=== PATIENT | male | born 1965 | race Caucasian/White ===

== ENCOUNTER 2023-12-25 07:31 | Outpatient (OUT) | payer BC, SELFPAY ==
--- NOTE | 2023-12-25 07:49 | XR_ITS ---
The [address] [address] Patient Name: YENNI HERNANDEZ MRN: [id number] date: 1965 Sex: M Assigned Patient Location: LAB Current Patient Location: LAB Accession/Order Number: [id number] Exam Date: 12/25/2023 07:52 Report Date: 12/25/2023 10:14 At the request of: JAYE LINDO Procedure: XR hip LT 2V w/ pelvis PROCEDURE: XR hip LT 2V w/ pelvis HISTORY: Low Back Pain Radiating To Lower Extremity COMPARISON: None. FINDINGS: BONES:No fracture, acute abnormality, or significant arthropathy. SOFT TISSUES:No visible soft tissue swelling. EFFUSION:None visible. OTHER: Negative. XR/XR hip LT 2V w/ pelvis IMPRESSION: 1. Normal examination. Electronically authenticated by: WILD MILLAN Date: 12/25/2023 10:14
--- NOTE | 2023-12-25 07:52 | XR_ITS ---
The [address] [address] Patient Name: YENNI HERNANDEZ MRN: [id number] date: 1965 Sex: M Assigned Patient Location: LAB Current Patient Location: LAB Accession/Order Number: [id number] Exam Date: 12/25/2023 07:52 Report Date: 12/25/2023 11:04 At the request of: JAYE LINDO Procedure: XR lumbar spine 2-3V EXAMINATION: XR lumbar spine 2-3V HISTORY: Low Back Pain Radiating To Lower Extremity COMPARISON: XR L-spine 05/24/2021 FINDINGS: BONES: Minimal left convex curvature of lumbar spine. Normal height and alignment of the vertebral bodies; no fracture or spondylolisthesis. Minimal degenerative facet arthropathy L4-5, L5-S1. DISC SPACES: No significant disc height narrowing, subluxation, or endplate abnormality. PARASPINOUS: Negative. No paraspinous abnormality is seen. OTHER: Old, incompletely healed posterior left 11th rib fracture. XR/XR lumbar spine 2-3V IMPRESSION: 1. No appreciable acute abnormality or significant degenerative changes of the lumbar spine. Stable. Electronically authenticated by: WILD MILLAN Date: 12/25/2023 11:04
[2023-12-25 07:54] LABS: Basophils Percent Auto 0.4 % (0.2-2.0); Eosinophils Absolute Auto 0.3 10^3/uL (0.0-0.7); Hematocrit 48.6 % (42.0-54.0); Hemoglobin 17.1 g/dL (14.0-18.0); Immature Granulocytes Abs Auto 0.02 10^3/uL (0.00-0.03); Immature Granulocytes Pct Auto 0.2 % (0.0-0.5); Lymphocytes Absolute Auto 2.7 10^3/uL (1.2-3.8); Lymphocytes Percent Auto 31.6 % (20.5-60.0); Mean Corpuscular HGB Conc 35.2 g/dL (29.9-35.2); Mean Corpuscular Hemoglobin 32.8 pg (25.9-34.0); Mean Corpuscular Volume 93.3 fL (80.0-94.0); Mean Platelet Volume 9.2 fL (9.5-13.5); Monocytes Absolute Auto 0.7 10^3/uL (0.3-0.8); Monocytes Percent Auto 7.7 % (1.7-12.0); Neutrophils Absolute Auto 4.9 10^3/uL (1.4-6.5); Neutrophils Percent Auto 57.1 % (43.0-75.0); Platelet Count 254 10^3/uL (150-450); Red Blood Count 5.21 10^6/uL (4.70-6.10); Red Cell Distribution Width 13.1 % (11.0-15.0); White Blood Count 8.5 10^3/uL (4.0-11.0)
[2023-12-25 09:00] LABS: Alanine Aminotransferase 28 U/L (16-63); Albumin Globulin Ratio 0.9; Albumin Level 3.5 g/dL (3.4-5.0); Alkaline Phosphatase 73 U/L (46-116); Anion Gap 14.3; Aspartate Amino Transferase 17 U/L (15-37); BUN Creatinine Ratio 8.4; Calcium 8.9 mg/dL (8.5-10.1); Carbon Dioxide 24.4 mmol/L (21.0-32.0); Chloride 103 mmol/L (98-107); Chol HDL Ratio 4.9; Cholesterol 217 mg/dL (<=200); Estimated GFR (African America >60 (>=60 mL/min/1.73m^2); Estimated GFR (Non-African Ame >60 (>=60 mL/min/1.73m^2); Globulin 3.9 g/dL; Glucose 118 mg/dL (74-106); HDL Cholesterol 44 mg/dL (40-60); Potassium 3.7 mmol/L (3.5-5.1); Sodium 138 mmol/L (136-145); Total Protein 7.4 g/dL (6.4-8.2); Triglycerides 220 mg/dL (<=150)
[2023-12-25 09:17] LABS: Prostate Specific Antigen Scrn 0.73 ng/mL (<=4.00)
== END 2023-12-25 07:32 | disposition home or self-care (01) ==
LOC: LAB 07:36
PROVIDERS: PCP Family Medicine; Visit Provider Family Medicine
DX: I10 Essential (primary) hypertension (principal); Z12.5 Encounter for screening for malignant neoplasm of prostate; M25.552 Pain in left hip; M54.50 Low back pain, unspecified; M79.605 Pain in left leg
CPT/HCPCS: 36415; 72100; 73502; 80053; 80061; 85025; G0103

== ENCOUNTER 2024-01-13 08:19 | Outpatient (OUT) | payer BC, SELFPAY ==
--- NOTE | 2024-01-13 08:23 | MR_ITS ---
The [address] [address] Patient Name: YENNI HERNANDEZ MRN: [id number] date: 1965 Sex: M Assigned Patient Location: MRI Current Patient Location: Accession/Order Number: [id number] Exam Date: 01/13/2024 08:45 Report Date: 01/15/2024 06:51 At the request of: WILD ACE Procedure: MR lumbar spine wo con EXAMINATION: MR lumbar spine wo con HISTORY: Lumbar Pain COMPARISON: No relevant comparison available. TECHNIQUE: A variety of imaging planes and parameters were utilized for visualization of suspected pathology. FINDINGS: For the purposes of numbering, sagittal T2 image # 8 extends from the T11 vertebral body superiorly to the S3 level inferiorly. PARASPINAL AREA: Normal with no visible mass. BONES: No fracture, pars defect, or osseous lesion. CORD/CAUDA EQUINA: Normal caliber, contour, and signal intensity. 1.3 cm nerve root sleeve cyst on the left posterior to S1 slightly displacing adjacent nerve roots. DISC LEVELS: 12-L1: No significant disc/facet abnormality, spinal stenosis, or foraminal stenosis. L1-L2: No significant disc/facet abnormality, spinal stenosis, or foraminal stenosis. L2-L3: Early degenerative disc disease is present without focal protrusion or neural impingement. L3-L4: Moderate-marked right foramen narrowing. Mild diffuse disc bulging slightly eccentric into the right foramen. Mild degenerative facet arthropathy, right greater than left. No significant central canal or left foramen narrowing. L4-L5: Moderate foramen narrowing bilaterally without significant central canal narrowing. Mild diffuse disc bulging and mild degenerative facet arthropathy bilaterally. L5-S1: Moderate right, moderate to marked left foramen narrowing. No significant central canal narrowing. Mild diffuse disc bulging. Mild right, moderate left degenerative facet arthropathy. MR/MR lumbar spine wo con IMPRESSION: 1. Mild degenerative disc disease and mild-moderate facet arthropathy of lower lumbar spine resulting in foramen narrowing. This is greatest at L3-L4 on the right and L5-S1 on the left. Electronically authenticated by: WILD MILLAN Date: 01/15/2024 06:51
--- OUTSIDE RECORDS SUMMARY | 2024-01-13 08:23 | XMS_ITS | CCD ---
Author Organization [facility] Care Team Providers Care Data Management Associate Name Role Phone DR HUI LINDO Admitting Unavailable GUICHO, DR HUI Potts Attending Unavailable DR HUI LINDO Primary Care Unavailable DR WILD MILLAN Consulting Unavailable GUICHO, DR HUI Potts Consulting Unavailable Hui Lindo Unavailable Allergies Allergy Classification Reported Allergen(s) Allergy Type Date of Onset Reaction(s) Facility (8 sources) Esomeprazole Drug Allergy 12-23-19 24 Unknown, Diarrhea [facility] (8 sources) gabapentin Drug Allergy 12-23-19 24 Unknown, Unknown Reaction [facility] (7 sources) Ibuprofen Drug Allergy Unknown [facility] Other (3 sources) Ibuprofen Drug Allergy 02-18-20 14 Unknown [facility] Other (3 sources) NexIUM *ULCER DRUGS/ANTISPASMO DICS/ANTICHOLINE RGIC Propensity to adverse reactions 02-18-20 14 Unknown [facility] Other Medications Current Medications Medication Drug Class(es) Dates Sig (Normalized) Sig (Original) amoxicillin 875 mg / clavulanate 125 mg oral tablet (8 sources) Penicillin-class Antibacterial Start: 06-07-2022 take 1 tablet by mouth every twelve hours Amoxicillin-Pot Clavulanate 875-125 MG 1 tablet Orally every 12 hrs for 10 day(s) May, Active cefdinir 300 mg oral capsule (3 sources) Cephalosporin Antibacterial Start: 11-12-2022 Cefdinir 300 MG as directed Orally bid for 7 days Oct, Active cloNIDine hydrochloride 0.1 mg oral tablet (4 sources) Central alpha-2 Adrenergic Agonist take 1 tablet by mouth every twenty-four hours cloNIDine HCl 0.1 MG 1 tablet Orally Once a day Active escitalopram 10 mg oral tablet (4 sources) Serotonin Reuptake Inhibitor take 1 tablet by mouth every twenty-four hours Lexapro 10 MG 1 tablet Orally Once a day Active losartan potassium 50 mg oral tablet (8 sources) Angiotensin 2 Receptor Maranda Start: 12-23-2023 take 1 tablet by mouth once daily Losartan Active 1 TAB PO Daily December 23, 2023 12:00am [employer] tablet Orally Once a day; Note: Source Status: Refill; Refills: 3; Qty: 90 Tablet; Provider: Guicho Potts take 1 tablet by parish th every twenty-four hours Losartan Potassium 50 MG 1 tablet Orally Once a day for 90 days Active Completed/Discontinued Medications Medication Drug Class(es) Dates Sig (Normalized) Sig (Original) [id number] 200 actuat albuterol 0.09 mg/actuat metered dose inhaler (20 sources) beta2-Adrenergic Agonist Start: 08-14-2023 End: 12-23-2023 Albuterol Sulfate Discontinued 0 .ROUTE .COMPLEX 51 August 14, 2023 8:38am December 23, 2023 1:39pm INHALE 2 INHALATIONS BY MOUTH INTO THE LUNGS EVERY 4 HOURS NEEDED Start: 08-13-2023 End: 08-14-2023 take 1 puff(s) by inhalation every four hours Albuterol Sulfate Discontinued 2 PUFF INHALATION Every 4 hours August 13, 2023 12:00am August 14, 2023 8:38am Start: 05-21-2023 End: 12-23-2023 Albuterol Sulfate Discontinu ed 0 .ROUTE .COMPLEX 1050 June 02, 2023 10:04am December 23, 2023 1:39pm USE 1 VIAL VIA NEBULIZER EVERY 6 HOURS NEEDED Start: 05-21-2023 End: 05-21-2023 take 2.5 mg by inhalation every six hours Albuterol Sulfate Discontinued 2.5 MG INHALATION Every 6 hours May 21, 2023 1:00am May 21, 2023 3:27pm Start: 09-24-2022 take 2 puff(s) by in halation every four hours as needed Albuterol Sulfate HFA 108 (90 Base) MCG/ACT 2 puff Inhalation every 4 hrs prn for 90 days Sep, Active Albuterol Sulfat e (2.5 MG/3ML) 0.083% 3 mL as needed Inhalation every 6 hrs for 90 days Active take 2 puff(s) by in halation every four hours as needed Albuterol Sulfate HFA 108 (90 Base) MCG/ACT INHALE TWO puffs into THE lungs EVERY 4 HOURS NEEDED for 90 Active Albuterol Sulfat e (2.5 MG/3ML) 0.083% 3 mL as needed Inhalation every 6 hrs for 90 days Active ProAir HFA Activ e cyclobenzaprine hydrochloride 10 mg oral tablet (10 sources) Muscle Relaxant Start: 06-26-2023 End: 12-23-2023 take 1 tablet by mouth once daily at bedtime as needed Cyclobenzaprine Discontinued 0 .ROUTE .COMPLEX 90 November 10, 2023 3:36pm December 23, 2023 1:51pm TAKE 1 TABLET BY MOUTH EVERY DAY AT BEDTIME NEEDED FOR 90 DAYS Start: 06-26-2023 End: 06-26-2023 take 10 mg by mouth once daily at bedtime Cyclobenzaprine Discontinued 10 MG PO Daily at bedtime June 26, 2023 12:00am June 26, 2023 1:03pm take 1 tablet by parish th every twenty-four hours Cyclobenzaprine HCl 10 MG 1 tablet at bedtime as needed Orally Once a day for 90 days Active Problems Problem Classification Problem Date Documented Date Episodic/Chronic Anxiety disorders (7 sources) Mixed anxiety and depressive disorder; Translations: [Anxiety disorder, unspecified] Chronic Chronic obstructive pulmonary disease and bronchiectasis (7 sources) Bronchitis; Translations: [Bronchitis, not specified as acute or chronic] Episodic Essential hypertension (9 sources) Essential hypertension; Translations: [Essential (primary) hypertension] 12-23-2023 Chronic Other non-traumatic joint disorders (1 source) Hip pain; Translations: [Pain in left hip] 12-23-2023 Episodic Other non-traumatic joint disorders (1 source) Pain in left hip; Translations: [Pain in joint, pelvic region and thigh] 12-23-2023 Episodic Other screening for suspected conditions (not mental disorders or infectious disease) (4 sources) Encounter for screening for malignant neoplasm of prostate; Translations: [Patient encounter status] Onset: 05-25-2021 Episodic Other upper respiratory infections (2 sources) Acute maxillary sinusitis, unspecified; Translations: [Acute recurrent maxillary sinusitis] Episodic Otitis media and related conditions (1 source) Unspecified nonsuppurative otitis media, right ear Episodic Spondylosis; intervertebral disc disorders; other back problems (9 sources) Pain in thoracic spine; Translations: [Pain in thoracic spine] 12-23-2023 Episodic Unclassified (1 source) LOW BACK PAIN, UNSPECIFIED; Translations: [LOW BACK PAIN, UNSPECIFIED] Onset: 05-25-2021 Results Test Name Value Interpretation Reference Range Facility CBC AUTO DIFFon 05-24-2021 BASO # 0.0 103/ul Normal 0.0-0.1 [facility] Comment on above: Performed By: #### C BC #### [facility] [address] [address] [address] Ciro Mesa Basophils/100 WBC (Bld) 0.5 % Normal 0.2-2.0 [facility] Comment on above: Performed By: #### C BC #### [facility] [address] [address] [address] Ciro Mesa EO # 0.2 103/ul Normal 0.0-0.7 [facility] Comment on above: Performed By: #### C BC #### [facility] [address] [address] [address] Ciro Mesa Eosinophils/100 WBC (Bld) 2.4 % Normal 0.9-7.0 [facility] Comment on above: Performed By: #### C BC #### [facility] [address] [address] [address] Ciro Mesa Erythrocyte distribution width (RBC) [Ratio] 13.1 % Normal 11.0-15.0 [facility] Comment on above: Performed By: #### C BC #### [facility] [address] [place] [address] Dr. Ciro Mesa Hematocrit (Bld) [Volume fraction] 48.6 % Normal 42.0-54.0 [facility] Comment on above: Performed By: #### C BC #### [facility] [address] [address] [address] Ciro Mesa Hemoglobin (Bld) [Mass/Vol] 16.5 g/dL Normal 14.0-18.0 [facility] Comment on above: Performed By: #### C BC #### [facility] [address] [place] [address] Dr. Ciro Mesa IG # 0.03 10e3/ul Normal 0.00-0.03 [facility] Comment on above: Performed By: #### C BC #### [facility] [address] [place] [address] Dr. Ciro Mesa IG % 0.4 % Normal 0.0-0.5 [facility] Comment on above: Performed By: #### C BC #### [facility] [address] [place] [address] Dr. Ciro Mesa LYMPH # 2.7 103/ul Normal 1.2-3.8 [facility] Comment on above: Performed By: #### C BC #### [facility] [address] [place] [address] Dr. Ciro Mesa Lymphocytes/100 WBC (Bld) 32.2 % Normal 20.5-60.0 [facility] Comment on above: Performed By: #### C BC #### [facility] [address] [place] [address] Dr. Ciro Mesa MANUAL DIFF REQ NO Normal [facility] Comment on above: Performed By: #### C BC #### [facility] [address] [place] [address] Dr. Ciro Mesa MCH (RBC) [Entitic mass] 32.1 pg Normal 25.9-34.0 [facility] Comment on above: Performed By: #### C BC #### [facility] [address] [place] [address] Dr. Ciro Mesa MCHC (RBC) [Mass/Vol] 34.0 g/dL Normal 29.9-35.2 [facility] Comment on above: Performed By: #### C BC #### [facility] [address] [place] [address] Dr. Ciro Mesa MCV (RBC) [Entitic vol] 94.6 fL Critically high 80.0-94.0 [facility] Comment on above: Performed By: #### C BC #### [facility] [address] [place] [address] Dr. Ciro Mesa MONO # 0.7 103/ul Normal 0.3-0.8 [facility] Comment on above: Performed By: #### C BC #### [facility] [address] [place] [address] Dr. Ciro Mesa Monocytes/100 WBC (Bld) 8.2 % Normal 1.7-12.0 [facility] Comment on above: Performed By: #### C BC #### [facility] [address] [place] [address] Dr. Ciro Mesa NEUT # 4.7 103/ul Normal 1.4-6.5 [facility] Comment on above: Performed By: #### C BC #### [facility] [address] [place] [address] Dr. Ciro Mesa Neutrophils/100 WBC (Bld) 56.3 % Normal 43.0-75.0 [facility] Comment on above: Performed By: #### C BC #### [facility] [address] [place] [address] Dr. Ciro Mesa Platelet mean volume (Bld) [Entitic vol] 9.1 fL Critically low 9.5-13.5 [facility] Comment on above: Performed By: #### C BC #### [facility] [address] [place] [address] Dr. Ciro Mesa PLT 257 103/ul Normal 150-450 [facility] Comment on above: Performed By: #### C BC #### [facility] [address] [place] [address] Dr. Ciro Mesa RBC 5.14 106/ul Normal 4.70-6.10 [facility] Comment on above: Performed By: #### C BC #### [facility] [address] [place] [address] Dr. Ciro Mesa WBC 8.3 103/ul Normal 4.0-11.0 [facility] Comment on above: Performed By: #### C BC #### [facility] [address] [place] [address] Dr. Ciro Mesa GLYCOHEMOGLOBIN A1Con 2021 ADA RECOMMENDATION ADA THERAPEUTIC TARG ET 6.0 - 7.0 ACTION SUGGESTED > 7.0 Normal [facility] Comment on above: Performed By: #### A 1C #### [facility] [address] [address] [address] Ciro Mesa Glucose [Mass/Vol] 120 mg/dL Normal [facility] Comment on above: Performed By: #### A 1C #### [facility] [address] [address] [address] Ciro Mesa HbA1c (Bld) [Mass fraction] 5.8 % Normal <=6.0 [facility] Comment on above: Performed By: #### A 1C #### [facility] [address] [place] [address] Dr. Ciro Mesa LIPID PROFILEon 05-24-2021 CHOL-HDL RATIO NORM SEE BELOW Normal [facility] Comment on above: Result Comment: 3.3 - 4.4 LOW RISK 4.4 - 7.1 AVERAGE RISK 7.1 - 11.0 MODERATE RISK >11.0 HIGH RISK Performed By: #### C MP, TSH, LIPID #### [facility] [address] [place] [address] Dr. Ciro Mesa Cholesterol [Mass/Vol] 218 mg/dL Critically high <=200 [facility] Comment on above: Performed By: #### C MP, TSH, LIPID #### [facility] [address] [address] [address] Ciro Mesa Cholesterol in HDL [Mass/Vol] 40 mg/dL Normal [facility] Comment on above: Performed By: #### C MP, TSH, LIPID #### [facility] [address] [address] [address] Ciro Mesa Cholesterol in LDL [Mass/Vol] 148.2 mg/dL Normal [facility] Comment on above: Performed By: #### C MP, TSH, LIPID #### [facility] [address] [address] [address] Ciro Mesa Cholesterol.total/Ch olesterol in HDL [Mass ratio] 5.5 {ratio} Normal [facility] Comment on above: Performed By: #### C MP, TSH, LIPID #### [facility] [address] [address] [address] Ciro Mesa HDL NORMAL > or = 60 mg/dl - LO W CARDIOVASCULAR RISK <40 mg/dl - HIGH CARDIOVASCULAR RISK Normal [facility] Comment on above: Performed By: #### C MP, TSH, LIPID #### [facility] [address] [address] [address] Ciro Mesa LDL CALC NORMAL SEE BELOW Normal [facility] Comment on above: Result Comment: <100 mg/dl OPTIMAL 100 - 129 mg/dl NEAR OR ABOVE OPTIMAL 130 - 159 mg/dl BORDERLINE HIGH 160 - 189 mg/dl HIGH >190 mg/dl VERY HIGH Performed By: #### C MP, TSH, LIPID #### [facility] [address] [place] [address] Dr. Ciro Mesa Triglyceride [Mass/Vol] 149 mg/dL Normal <=150 [facility] Comment on above: Performed By: #### C MP, TSH, LIPID #### [facility] [address] [place] [address] Dr. Ciro Mesa VLDL CALC 29.8 mg/dL Normal [facility] Comment on above: Performed By: #### C MP, TSH, LIPID #### [facility] [address] [place] [address] Dr. Ciro Mesa PROF 14(COMP METB)on 022 Albumin [Mass/Vol] 3.9 g/dL Normal 3.5-5.0 [facility] Comment on above: Performed By: #### C MP, TSH, LIPID #### [facility] [address] [address] [address] Ciro Mesa Albumin/Globulin [Mass ratio] 0.9 {ratio} Normal [facility] Comment on above: Performed By: #### C MP, TSH, LIPID #### [facility] [address] [address] [address] Ciro Mesa ALP [Catalytic activity/Vol] 79 U/L Normal 38-126 [facility] Comment on above: Performed By: #### C MP, TSH, LIPID #### [facility] [address] [address] [address] Ciro Mesa ALT [Catalytic activity/Vol] 35 U/L Normal 21-72 [facility] Comment on above: Performed By: #### C MP, TSH, LIPID #### [facility] [address] [address] [address] Ciro Mesa Anion gap [Moles/Vol] 10.3 mmol/L Normal [facility] Comment on above: Performed By: #### C MP, TSH, LIPID #### [facility] [address] [address] [address] Ciro Mesa AST [Catalytic activity/Vol] 21 U/L Normal 17-59 [facility] Comment on above: Performed By: #### C MP, TSH, LIPID #### [facility] [address] [address] [address] Ciro eMsa Bilirubin [Mass/Vol] 0.6 mg/dL Normal 0.2-1.3 [facility] Comment on above: Performed By: #### C MP, TSH, LIPID #### [facility] [address] [address] [address] Ciro Mesa Calcium [Mass/Vol] 8.5 mg/dL Normal 8.4-10.2 [facility] Comment on above: Performed By: #### C MP, TSH, LIPID #### [facility] [address] [address] [address] Ciro Mesa Chloride [Moles/Vol] 105 mmol/L Normal 98-107 [facility] Comment on above: Performed By: #### C MP, TSH, LIPID #### [facility] [address] [address] [address] Ciro Mesa CO2 [Moles/Vol] 30.5 mmol/L Critically high 22.0-30.0 [facility] Comment on above: Performed By: #### C MP, TSH, LIPID #### [facility] [address] [address] [address] Ciro Mesa Creatinine [Mass/Vol] 0.96 mg/dL Normal 0.66-1.25 [facility] Comment on above: Performed By: #### C MP, TSH, LIPID #### [facility] [address] [place] [address] Dr. Ciro Mesa EGFR-AF SAMMARINESE >60 Normal >=60 [facility] Comment on above: Performed By: #### C MP, TSH, LIPID #### [facility] [address] [place] [address] Dr. Ciro Mesa EGFR-NON AF SAMMARINESE >60 Normal >=60 [facility] Comment on above: Performed By: #### C MP, TSH, LIPID #### [facility] [address] [place] [address] Dr. Ciro Mesa Globulin (S) [Mass/Vol] 4.3 g/dL Normal [facility] Comment on above: Performed By: #### C MP, TSH, LIPID #### [facility] [address] [place] [address] Dr. Ciro Mesa Glucose [Mass/Vol] 131 mg/dL Critically high 74-106 [facility] Comment on above: Performed By: #### C MP, TSH, LIPID #### [facility] [address] [place] [address] Dr. Ciro Mesa Potassium [Moles/Vol] 3.8 mmol/L Normal 3.4-5.0 [facility] Comment on above: Performed By: #### C MP, TSH, LIPID #### [facility] [address] [place] [address] Dr. Ciro Mesa Protein [Mass/Vol] 8.2 g/dL Normal 6.1-8.2 [facility] Comment on above: Performed By: #### C MP, TSH, LIPID #### [facility] [address] [place] [address] Dr. Ciro Mesa Sodium [Moles/Vol] 142 mmol/L Normal 137-145 [facility] Comment on above: Performed By: #### C MP, TSH, LIPID #### [facility] [address] [place] [address] Dr. Ciro Mesa Urea nitrogen [Mass/Vol] 10.0 mg/dL Normal 9.0-20.0 [facility] Comment on above: Performed By: #### C MP, TSH, LIPID #### [facility] [address] [address] [address] Ciro Mesa Urea nitrogen/Creatinine [Mass ratio] 10.4 mg/mg Normal [facility] Comment on above: Performed By: #### C MP, TSH, LIPID #### [facility] [address] [address] [address] Ciro Mesa TSHon 05-24-2021 TSH 1.701 uIU/mL Normal 0.470-4.680 [facility] Comment on above: Performed By: #### C MP, TSH, LIPID #### [facility] [address] [address] [address] Ciro Mesa TSH RANGE SEE BELOW Normal [facility] Comment on above: Result Comment: <0.3 4 UIU/ml HYPERTHYROID 0.34-5.60 UIU/ml EUTHYROID >5.60 UIU/ml HYPOTHYROID Performed By: #### C MP, TSH, LIPID #### [facility] [address] [address] [address] Ciro Mesa XR LSPINE MIN 4 VIEWSon 05-15 XR LSPINE MIN 4 VIEWS EXAMINATION: XR LSPINE MIN 4 VIEWS HISTORY: Low back pain ; acute left lumbar pain for 3 months radiating to left leg, no known injury COMPARISON: No relevant comparison available. FINDINGS: BONES: Mild degenerative facet arthropathy L4-L5, L5-S1. No fracture, spondylolisthesis, bone lesion. DISC SPACES: No significant disc height narrowing, subluxation, or endplate abnormality. PARASPINOUS: Negative. No paraspinous abnormality is seen. OTHER: Negative. IMPRESSION: 1. No acute bone abnormality. 2. Minimal degenerative changes. Consider MRI for further evaluation if symptoms persist. Electronically authenticated by: WILD MILLAN Date: 2021-05-24 16:25 Normal [facility] Consent Formson 03-23-2020 Consent Forms [id number]#[id number] [facility] Coding Summaryon 03-21-2020 Coding Summary CODING DATE: 03/21/2020 [facility] STATUS: Home PAYOR: [employer] APC DESCRIPTION 5114 Level 4 Musculoskeletal Procedures ADMIT DX: REASON FOR VISIT DX: M75.101 Unspecified rotator cuff tear or rupture of right shoulder, not specified as traumatic FINAL DX: PRINCIPAL: M75.121 Complete rotator cuff tear or rupture of right shoulder, not specified as traumatic SECONDARY: S46.111A Strain of muscle, fascia and tendon of long head of biceps, right arm, initial encounter PYMT PROC APC STAT DESCRIPTION DOCTOR NAME DATE 78712 5114 J1 Arthroscopy, shoulder, Robert Phelan And 03/13/2020 surgical; with rotator cuff repair RT Right side (used to identify procedures performed on the right side of the body) NOTE: The code number assigned matches the documented diagnosis and / or procedure in the patient's chart. However, the narrative phrase printed from the coding software may appear abbreviated, or result in slightly different terminology. Revised Coded By: Iris Shaikh Revised Date Saved: 03/21/2020 09:34 am [facility] MAGR Intraoperative Recordon 03-15-2020 MAGR Intraoperative Record MAGR Intra-Op Record Summary Primary Physician: Robert Phelan DO Finalized Date/Time: 03/15/20 13:30:29 Pt. Name: JEREMI HERNANDEZ Sr/Sex: 1965 MALE Med Rec #: [id number] Physician: Robert Phelan DO Financial #: [id number] Pt. Type: D Room/Bed: / Admit/Disch: 03/13/20 07:12:00 - 03/13/20 14:05:00 Institution: Case Times MAGR Entry 1 Patient In Room Time 03/13/20 10:36:00 Out Room Time 03/13/20 12:38:00 Anesthesia Start Time 03/13/20 10:36:00 Stop Time 03/13/20 12:38:00 Surgery Start Time 03/13/20 11:04:00 Stop Time 03/13/20 12:30:00 Last Modified By: Laura Thornton RN 03/13/20 13:40:40 Case Attendance MAGR Entry 1 Entry 2 Entry 3 Case Attendee Robert Phelan Satya S MD Sauer, Stephanie RN Andrew DO Role Performed Surgeon - Primary Anesthesiologist of Facility Practice Specialist Record Time In 03/13/20 10:36:00 03/13/20 10:36:00 03/13/20 10:36:00 Time Out 03/13/20 12:38:00 03/13/20 12:38:00 03/13/20 12:38:00 Procedure Arthroscopy Arthroscopy Arthroscopy Shoulder(Right) Shoulder(Right) Shoulder(Right) Last Modified By: Laura Thornton RN, Stephanie RN Sauer, Stephanie RN 03/13/20 14:08:44 03/13/20 14:08:44 03/13/20 14:08:44 Entry 4 Entry 5 Case Attendee Shelbi Mcleod CST, Brittany E CSFA Role Performed Cig[employer] Machine Feeder Scrub Personnel Time In 03/13/20 10:36:00 03/13/20 10:36:00 Time Out 03/13/20 12:38:00 03/13/20 12:38:00 Procedure Arthroscopy Arthroscopy Shoulder(Right) Shoulder(Right) Last Modified By: Laura Thornton RN, Stephanie RN 03/13/20 14:08:44 03/13/20 14:08:44 General Comments: NEEL CRANDALL RAPP & NEPHEW REP Surgical Procedures MAGR Pre-Care Text: A.20 Verifies operative procedure, surgical site, and laterality Im.150 Develops individualized plan of care Entry 1 Procedure Arthroscopy Shoulder Primary Procedure Yes Primary Surgeon Robert Phelan Modifiers Right Foreign ZAMORA Surgeon Comment RIGHT SHOULDER SCOPE Start 03/13/20 11:04:00 WITH ROTATOR CUFF REPAIR - RAPP AND NEPHEW IMPLANT Stop 03/13/20 12:30:00 Anesthesia Type General Surgical Service Orthopedics Wound Class Clean Technique Details Closure Technique Primary Entire procedure No was performed via laparoscope or robotic assistance Last Modified By: Laura Thornton RN 03/13/20 13:41:59 Post-Care Text: O.730 The patient's care is consistent with the individualized perioperative plan of care General Case Data MAGR Pre-Care Text: A.350.1 Classifies surgical wound Entry 1 Case Information OR MAGR OR 05 Case Level Level 4 Wound Class Clean Specialty Orthopedics ASA Class 3 Diagnosis Preop Diagnosis ROTATOR CUFF TEAR RIGHT Postop Same As Preop Yes Postop Diagnosis ROTATOR CUFF TEAR RIGHT Blunt or No Is the procedure No penetrating injury considered occured prior to Emergent/Urgent? the start of the procedure: Last Modified By: Laura Thornton RN 03/13/20 13:42:10 Post-Care Text: O.760 Patient receives consistent and comparable care regardless of the setting Time Out MAGR Entry 1 Time out date/time 03/13/20 11:04:00 All team members Yes have introduced themselves by name and role Surgeon, Yes Surgeon reviews Yes anesthesia, nurse critical or confirm patient, unexpected steps, site, procedure operative duration, anticipated blood loss Anesthesia team Yes Nursing team Yes reviews any reviews sterility patient-specific (including concerns indicator results) and equipment issues/concerns Antibiotic Antibiotic Yes Administration Time 10:40 prophylaxis given within the last 60 minutes Is essential Yes imaging displayed? Last Modified By: Laura Thornton RN 03/13/20 13:42:36 Patient Positioning MAGR Pre-Care Text: A.280 Identifies baseline musculoskeletal status Im.40 Positions the patient Im.80 Applies safety devices Entry 1 Procedure Arthroscopy Body Position Lateral Shoulder(Right) Left Arm Position Extended on padded arm Right Arm Position Extended board Left Leg Position Extended Right Leg Position Extended Feet Uncrossed? Yes Press Points Checked Yes Positioning Device Arm Boards, Arm Strap, Outcome Met (O.80) Yes Pillow, Safety Strap Last Modified By: Laura Thornton RN 03/13/20 13:42:45 Post-Care Text: E.290 Evaluates musculoskeletal status O.80 Patient is free from signs and symptoms of injury related to positioning Skin Prep MAGR Pre-Care Text: A.30 Verifies allergies Im.270 Performs skin preparation Im.270.1 Implements protective measures to prevent skin and tissue injury due to chemical sources Entry 1 Skin Prep Syntegrity Prep Agents (Im.270) Chlorhexidine Gluconate Prep By Laura Thornton RN and Alcohol Prep Area (Im.270) Shoulder, Arm, Hand Prep Area Details Right Skin Prep Agent Dry Yes Without Pooling Hair Removal Syntegrity Hair Removal Methods No hair removal performed Outcome Met (O.100) Yes Last Modified By: Laura Thornton RN 03/13/20 13:43:13 Post-Care Text: E.10 Evaluates for signs and symptoms of physical injury to skin and tissue O.100 Patient is free from signs and symptoms of chemical injury Counts Verification MAGR Pre-Care Text: A.20 Verifies operative procedure, surgical site, and laterality A.20.2 Assesses the risk for unintended retained foreign body Im.20 Performs required counts Entry 1 Procedure Arthroscopy Shoulder(Right) Counts Verification Initial Counts Items included in Sponges, Sharps Initial Counts Laura Thornton RN, the Initial Count Performed By Anna Hood Initial Count Time 03/13/20 11:00:00 Counts Verification Final Counts Items Included in Sponges, Sharps Final Count Status Correct Final Count Final Counts Laura Thornton RN, Final Count Time 03/13/20 12:10:00 Performed By Anna Hood Surgeon notified of Yes final counts status Outcome Met (O.20) Yes Last Modified By: Laura Thornton RN 03/13/20 13:43:43 Post-Care Text: E.50 Evaluates results of the surgical count O.20 Patient is free from unintended retained foreign objects Patient Care Devices MAGR Pre-Care Text: A.200 Assesses risk for normothermia regulation A.40 Verifies presence of prosthetics or corrective devices Im.280 Implements thermoregulation measures Im.60 Uses supplies and equipment within safe parameters Entry 1 Entry 2 Equipment Type BILLATERAL INTERMITTENT FORCED WARM AIR COMPRESSION DEVICE Serial ?# [id number] Equipment Setting DEFAULT 43 DEGREES Last Modified By: Laura Thornton RN, Stephanie RN 03/13/20 13:44:50 03/13/20 13:44:50 Post-Care Text: E.10 Evaluates signs and symptoms of physical injury to skin and tissue O.700 Patient is free from signs and symptoms of injury caused by extraneous objects Implant Log MAGR Pre-Care Text: A.20 Verifies operative procedure, surgical site, and laterality Im.350 Records implants inserted during the operative or invasive procedure Entry 1 Entry 2 Entry 3 Procedure Arthroscopy Arthroscopy Arthroscopy Shoulder(Right) Shoulder(Right) Shoulder(Right) Implant Action Not Implanted Implant Implant Description RAPP & NEPHEW FIRST RAPP & NEPHEW RAPP & NEPHEW PASS SUTURE PASSER HEALICOIL SUTURE ANCHOR HEALICOIL SUTURE ANCHOR [id number] 5.5MM [id number] 4.75MM [id number] Implant Information Implant/Explant 03/13/20 12:00:00 03/13/20 12:00:00 03/13/20 12:00:00 Date/Time Implanted/Explanted Robert Phelan James Huddleston, James By: Foreign ZAMORA Foreign Hudsonw DO Size 5.5MM 4.75MM Double Backer RAPP & NEPHEW RAPP & NEPHEW RAPP & NEPHEW Catalog # [id number] Lot Number [id number] Expiration Date 10/26/22 08/10/22 12/07/22 Serial Number Device Identifier Human Readable KB Machine Readable KB MR Class Implant Usage Data Site Shoulder R Shoulder R Shoulder R Quantity 1 1 1 Reason for Explant Reason Not Retained Explant Disposition Youth Leader Sterility External Indicator Result Internal Indicator Results Outcome Met (O.30) Yes Yes Yes Last Modified By: Laura Thornton RN, Stephanie RN Sauer, Stephanie RN 03/13/20 14:08:30 03/13/20 14:08:30 03/13/20 14:08:31 Entry 4 Entry 5 Entry 6 Procedure Arthroscopy Arthroscopy Arthroscopy Shoulder(Right) Shoulder(Right) Shoulder(Right) Implant Action Implant Not Implanted Not Implanted Description RAPP & NEPHEW RAPP & NEPHEW 4.75 RAPP & NEPHEW HEALICOIL SUTURE ANCHOR DILATOR (AWL) [id number] ULTRATAPE 38 [id number] 4.75MM [id number] Implant Information Implant/Explant 03/13/20 12:00:00 03/13/20 12:00:00 03/13/20 12:00:00 Date/Time Implanted/Explanted Robert Phelan James Huddleston, James By: Foreign Hudsonw Foreign DO Size 4.75MM 38 Double Backer RAPP & NEPHEW RAPP & NEPHEW RAPP & NEPHEW Catalog # [id number] Lot Number [id number] Expiration Date 11/04/22 02/10/24 04/21/23 Serial Number Device Identifier Human Readable KB Machine Readable KB MR Class Implant Usage Data Site Shoulder R Shoulder R Shoulder R Quantity 1 1 1 Reason for Explant Reason Not Retained Explant Disposition Youth Leader Sterility External Indicator Result Internal Indicator Results Outcome Met (O.30) Yes Yes Yes Last Modified By: Laura Thornton RN, Stephanie RN Sauer, Stephanie RN 03/13/20 14:08:31 03/13/20 14:08:31 03/13/20 14:08:31 Entry 7 Procedure Arthroscopy Shoulder(Right) Implant Action Not Implanted Description [id number] 8.5MM CANNULA [id number] Implant Information Implant/Explant 03/13/20 12:00:00 Date/Time Implanted/Explanted Robert Phelan By: Foreign DO Size 8.5MM Double Backer [id number] Catalog # [id number] Lot Number [id number] Expiration Date 05/07/21 Serial Number Device Identifier Human Readable KB Machine Readable KB MR Class Implant Usage Data Site Shoulder R Quantity 1 Reason for Explant Reason Not Retained Explant Disposition Youth Leader Sterility External Indicator Result Internal Indicator Results Outcome Met (O.30) Yes Last Modified By: Laura Thornton RN 03/13/20 14:08:31 Post-Care Text: E.30 Evaluates verification process for correct patient, site, side and level surgery O.30 Patient's procedure is performed on the correct site, side, and level Dressing/Packing MAGR Pre-Care Text: A.350 Assesses susceptibility for infection Im.290 Administer care to wound sites Entry 1 Skin Prep Agent Yes Site Shoulder Removed Prior to Dressing? Site Details Right Dressing Item Details Dressing Item 4x4's, ABD, Petroleum Tape (Im.290) Foam (Im.290) gauze Outcome Met Yes Last Modified By: Laura Thornton RN 03/13/20 13:45:23 Post-Care Text: E.200 Evaluates progress of wound healing O.200 Patient's wound perfusion is consistent with or improved from baseline levels Departure from OR MAGR Entry 1 Present on Depart Oxygen Via Stretcher Post-op Destination PACU Skin DFO Condition Dry Description Condition Intact Description Report Given To Jelena Diehl RN Airway Maintenance Patient Status Stable Oxygen in Use? Yes Airway Device Simple mask Flow Rate 10 Last Modified By: Laura Thornton RN 03/13/20 13:45:55 Case Comments Finalized By: Angelique Josue RN Document Signatures Signed By: Laura Thornton RN 03/13/20 14:09 Angelique Josue RN 03/15/20 13:30 Unfinalized History Date/Time Username Reason for Unfinalizing Freetext Reason for Unfinalizing 03/15/20 13:26 DOUGIE Modify Pick List [facility] Consent Formson 03-14-2020 Consent Forms [id number]#1.[address] [place] [address] Discharge Instructionson Discharge Instructions [id number]#1.[address] [place] [address] History and Physicalon 03-14 History and Physical [id number] 120 [id number]#1.[address] [place] [address] Medication Managementon 02-15 Medication Management [id number]#1.[address] [place] [address] Outside Recordson 03-14-2020 Outside Records [id number]#1.[address] [place] [address] Telemetry Stripson 0 Telemetry Strips [id number] 20 [id number]#1.[address] [place] [address] Anesthesia Noteon 03-13-2020 Anesthesia Note Patient: JEREMI HERNANDEZ Sr Age: 54 years Sex: MALE : 1965 Associated Diagnoses: None Author: Nato Goddard MD Preoperative Information Anesthesia history: Patient history: No difficult intubation, No malignant hyperthermia. Family history: No malignant hyperthermia. Review of Systems Respiratory: No shortness of breath, No apnea. Cardiovascular: No known [place], No chest pain. Gastrointestinal Health Status Allergies: Allergic Reactions (All) No known allergies Current medications: Home Medications (3) Active Albuterol (Eqv-ProAir HFA) 90 mcg/inh inhalation aerosol 2 puff(s), PRN, INH, BID albuterol 0.083% inh solution 6 mL, PRN, INH, q6hr cloNIDine 0.1 mg oral tablet 0.1 mg = 1 tab(s), PO, BID Problem list (past medical history): All Problems Smoker / SNOMED CT [id number] / Confirmed Histories Family History: No family history items have been selected or recorded. Procedure history: Finger ([id number]). Comments: 02/25/2020 10:12 Jake Maurice RN right ring finger Bilateral eyes ([id number]). Comments: 02/25/2020 10:13 Jake Maurice RN at age 6 surgery for being cross eyed Social History Electronic Cigarette/Vaping Assessment Electronic Cigarette Use: Former use, quit more than 90 days ago. Alcohol Assessment Use: Current. Comment: ocacational beer Tobacco Assessment 10 or more cigarettes (1/2 pack or more)/day in last 30 days Tobacco Use:. Substance Abuse Assessment Substance use: Never. . Physical Examination VS/Measurements Vital Signs (last 24 hrs) Last Charted Heart Rate Peripheral 73 bpm (MAR 13 07:40) Resp Rate 20 br/min (MAR 13:40) SBP H 141mmHg (MAR 13 07:45) DBP H 93mmHg (MAR 13 07:45) SpO2 100 % (MAR 13:40) General: Alert and oriented, No acute distress. Airway: Mouth: Within normal limits. Respiratory: Respirations are non-labored. Cardiovascular: Normal rate. Review / Management Laboratory Results ECG interpretation: Within normal limits, PVCs. Plan [place] [employer]esthesiologists#(ASA ) physical status classification: Class III. Anesthetic Preoperative Plan Anesthesia: General. , Regional Interscalene Block. Anesthetic plan, risks, benefits, and alternatives discussed with the patient and/or family. Patient verbalized understanding. Informed consent was given. Consent was signed by the patient. [Electronically Signed on: 03/13/2020 08:52 EST] Nato Goddard MD [Verified on: 03/13/2020 08:52 EST] Nato Goddard MD [facility] Coding Summaryon 03-13-2020 Coding Summary CODING DATE: 03/13/2020 [facility] STATUS: Home PAYOR: Commercial Insurance ADMIT DX: REASON FOR VISIT DX: Z20.828 Contact with and (suspected) exposure to other viral communicable diseases FINAL DX: PRINCIPAL: Z20.828 Contact with and (suspected) exposure to other viral communicable diseases SECONDARY: PYMT PROC APC STAT DESCRIPTION DOCTOR NAME DATE NOTE: The code number assigned matches the documented diagnosis and / or procedure in the patient's chart. However, the narrative phrase printed from the coding software may appear abbreviated, or result in slightly different terminology. Coded By: Varsha Nassar Date Saved: 03/13/2020 07:36 am [facility] Inpatient Patient Summaryon 03-13-2020 [place]patient [place] [address] Patient Discharge Instructions Name: JEREMI HERNANDEZ Sr : 1965 Patient [address]: [address] [place] [address] Primary Care Provider: Name: Hui Lindo MD After you are discharged if you find you have any questions, please, call [phone] ext [phone] to speak to a nurse. Discharge Diagnosis: Unspecified rotator cuff tear or rupture of right shoulder, not specified as traumatic Prescription Information: If you have been given a prescription for narcotics, seek immediate medical attention if you have any difficulty breathing or any sudden status changes such as confusion and sleepiness. If you or anyone you know is experiencing suicidal thoughts, mental health, alcohol and/or drug addiction problems; contact the [facility] 07/10 Crisis Hotline -Text 4HSKS cj 295634. If you received any narcotics, sedation, or any other medication that causes drowsiness for the next 24 hours, unless otherwise directed: ? Do not drive a car. ? Do not operate machinery such as power tools, lawn mowers, drills, sewing machines, or stoves ? Avoid alcoholic beverages and drugs for allergies, nerves, or sleep ? Do not make important personal or business decisions or sign any legal documents [facility] would like to thank you for allowing us to assist you with your healthcare needs. The following includes patient education materials and information regarding your injury/illness. JEREMI HERNANDEZ Sr has been given the following list of follow-up instructions, prescriptions, and patient education materials: Follow-up Instructions With: Address: When: ADAM DE [place] [address] [facility], [facility] [address] [place] [address] Business (1) 03/22/2020 9:15 AM With: Address: When: Hui Guicho [address] [place] [address], [facility] [place] [address] Business (1) Medications During the course of your visit, your medication list was updated with the most current information. The details of those changes are reflected below: Medications to Continue That Have Not Changed Other Medications albuterol (Albuterol (Eqv-ProAir HFA) 90 mcg/inh inhalation aerosol) 2 puff(s) Inhalation 2 times a day as needed wheezing. albuterol (albuterol 0.083% inh solution) 6 Milliliter Inhalation Every 6 hours as needed for wheezing. cloNIDine (cloNIDine 0.1 mg oral tablet) 1 tab(s) Oral 2 times a day. It is important to always keep an active list of medications available so that you can share with other providers and manage your medications appropriately. As an additional courtesy, we are also providing you with your final active medications list that you can keep with you. albuterol (Albuterol (Eqv-ProAir HFA) 90 mcg/inh inhalation aerosol) 2 puff(s) Inhalation 2 times a day as needed wheezing. albuterol (albuterol 0.083% inh solution) 6 Milliliter Inhalation Every 6 hours as needed for wheezing. cloNIDine (cloNIDine 0.1 mg oral tablet) 1 tab(s) Oral 2 times a day. Take only the medications listed above. Contact your doctor prior to taking any medications not on this list. Diet & Activity Patient Activity Level: As Tolerated Patient Diet: Regular Patient Activity Restrictions: Comment: Patient education materials, if any, will display below DR. GONZALEZ POST OPERATIVE SHOULDER INSTRUCTIONS SURGEONS WRITTEN INSTRUTCTIONS: -If you have been given a cryo cuff after surgery you should use it as much as possible for the first 24-48 hours. After that it is optional. TIP: Many patients prefer to use it a little longer because it helps reduce pain -You should wiggle your fingers frequently -Change your dressings in 1 day. If steri-strips have been applied DO NOT remove them. When the wound is clean and dry you may leave it open to air but again DO NOT remove any steri-strips that have been applied -You may shower in 1 day but do not let the water stream directly strike the wound -Do pendulum exercises for at least 10 minutes twice a day -If you have any problems or concerns, please call the office at [phone] -Follow up as scheduled Viruses or Bacteria What?s got you sick? Antibiotics only treat bacterial infections. Viral illnesses cannot be treated with antibiotics. When an antibiotic is not prescribed, ask your healthcare professional for tips on how to relieve symptoms and feel better. Usual Cause Illness Viruses Bacteria Antibiotic Needed Cold/Runny Nose NO Bronchitis/Chest Cold (in otherwise healthy children and adults) NO Whooping Cough Yes Flu NO Strep Throat Yes Sore Throat (except strep) NO Fluid in the middle ear (otitis media with effusion) NO Urinary Tract Infection Yes Antibiotics Aren?t Always the Answer www.cdc.gov/getsmart GET SMART Know When Antibiotics Work U.[place]. Department of Health and Human Services Centers for Disease Control and Prevention November 2013 [facility] MAGR Intraoperative Recordon 03-13-2020 MAGR Intraoperative Record MAGR Intra-Op Record Summary Primary Physician: Finalized Date/Time: 03/13/20 10:36:09 Pt. Name: JEREMI HERNANDEZ Sr/Sex: 1965 MALE Med Rec #: [id number] Physician: Robert Phelan DO Financial #: [id number] Pt. Type: D Room/Bed: / Admit/Disch: 03/13/20 07:12:00 - Institution: Case Times MAGR Entry 1 Patient In Room Time 03/13/20 10:15:00 Out Room Time 03/13/20 10:35:00 Anesthesia Start Time 03/13/20 10:16:00 Stop Time 03/13/20 10:24:00 Surgery Start Time 03/13/20 10:20:00 Stop Time 03/13/20 10:24:00 Last Modified By: Maude Diallo RN 03/13/20 10:35:29 Case Attendance MAGR Entry 1 Entry 2 Entry 3 Case Attendee Nato Goddard MD, RN, Alana Neri RN Role Performed Anesthesiologist of Facility Practice Specialist Facility Practice Specialist Record Time In 03/13/20 10:15:00 03/13/20 10:15:00 03/13/20 10:15:00 Time Out 03/13/20 10:26:00 03/13/20 10:35:00 03/13/20 10:30:00 Procedure Interscalene Block Interscalene Block Interscalene Block Last Modified By: Yoel HAWKINS, Maude Diallo RN, Maude Ingram RN 03/13/20 10:35:39 03/13/20 10:35:39 03/13/20 10:35:39 Surgical Procedures MAGR Pre-Care Text: A.20 Verifies operative procedure, surgical site, and laterality Im.150 Develops individualized plan of care Entry 1 Procedure Interscalene Block Primary Procedure Yes Primary Surgeon Nato Goddard MD Surgeon Comment SCALENE BLOCK PRIOR TO RIGHT SHOULDER SCOPE WITH ROTATOR CUFF REPAIR - RAPP AND NEPHEW IMPLANT Start 03/13/20 10:20:00 Stop 03/13/20 10:24:00 Anesthesia Type Regional Block Surgical Service Anesthesia Wound Class Clean Technique Details Closure Technique N/A Entire procedure No was performed via laparoscope or robotic assistance Last Modified By: Maude Diallo RN 03/13/20 10:29:12 Post-Care Text: O.730 The patient's care is consistent with the individualized perioperative plan of care General Case Data MAGR Pre-Care Text: A.350.1 Classifies surgical wound Entry 1 Case Information OR MAGR Proc Room Case Level None Wound Class Clean Specialty Anesthesia ASA Class 3 Diagnosis Preop Diagnosis SCALENE BLOCK PRIOR TO Postop Same As Preop Yes RIGHT SHOULDER SCOPE WITH ROTATOR CUFF REPAIR - RAPP AND NEPHEW IMPLANT Postop Diagnosis SCALENE BLOCK PRIOR TO RIGHT SHOULDER SCOPE WITH ROTATOR CUFF REPAIR - RAPP AND NEPHEW IMPLANT Blunt or No Is the procedure No penetrating injury considered occured prior to Emergent/Urgent? the start of the procedure: Last Modified By: Maude Diallo RN 03/13/20 10:29:26 Post-Care Text: O.760 Patient receives consistent and comparable care regardless of the setting Time Out MAGR Entry 1 Time out date/time 03/13/20 10:16:00 All team members Yes have introduced themselves by name and role Surgeon, Yes Surgeon reviews Yes anesthesia, nurse critical or confirm patient, unexpected steps, site, procedure operative duration, anticipated blood loss Anesthesia team No Nursing team No reviews any reviews sterility patient-specific (including concerns indicator results) and equipment issues/concerns Antibiotic Antibiotic N/A prophylaxis given within the last 60 minutes Is essential Yes imaging displayed? Last Modified By: Maude Diallo RN 03/13/20 10:30:22 Patient Positioning MAGR Pre-Care Text: A.280 Identifies baseline musculoskeletal status Im.40 Positions the patient Im.80 Applies safety devices Entry 1 Procedure Interscalene Block Body Position Supine Left Arm Position Resting at Side Right Arm Position Resting at Side Left Leg Position Extended Right Leg Position Extended Feet Uncrossed? Yes Press Points Checked Yes Outcome Met (O.80) Yes Last Modified By: Maude Diallo RN 03/13/20 10:25:45 Post-Care Text: E.290 Evaluates musculoskeletal status O.80 Patient is free from signs and symptoms of injury related to positioning Skin Prep MAGR Pre-Care Text: A.30 Verifies allergies Im.270 Performs skin preparation Im.270.1 Implements protective measures to prevent skin and tissue injury due to chemical sources Entry 1 Skin Prep Syntegrity Prep Agents (Im.270) Chlorhexidine Gluconate Prep By Nato Goddard MD and Alcohol Prep Area (Im.270) Shoulder, Neck Prep Area Details Right Skin Prep Agent Dry Yes Without Pooling Hair Removal Syntegrity Hair Removal Methods No hair removal performed Outcome Met (O.100) Yes Last Modified By: Maude Diallo RN 03/13/20 10:28:10 Post-Care Text: E.10 Evaluates for signs and symptoms of physical injury to skin and tissue O.100 Patient is free from signs and symptoms of chemical injury Departure from OR MAGR Entry 1 Present on Depart Oxygen Via Stretcher Post-op Destination [place] Skin DFO Condition Dry Description Report Given To Angelique Josue RN Airway Maintenance Patient Status Stable Oxygen in Use? Yes Airway Device Nasal cannula Flow Rate 2 % L/min Last Modified By: Maude Diallo RN 03/13/20 10:36:02 Case Comments Finalized By: Maude Diallo RN Document Signatures Signed By: Maude Diallo RN 03/13/20 10:36 [facility] MAGR PACU Recordon 0 MAGR PACU Record MAGR PACU Record Summary Primary Physician: Robert Phelan DO Finalized Date/Time: 03/13/20 13:06:43 Pt. Name: JEREMI HERNANDEZ Sr/Sex: 1965 MALE Med Rec #: [id number] Physician: Robert Phelan DO Financial #: [id number] Pt. Type: D Room/Bed: / Admit/Disch: 03/13/20 07:12:00 - Institution: PACU Case Times MAGR Entry 1 In PACU I 03/13/20 12:35:00 Discharge from PACU 03/13/20 13:05:00 I Last Modified By: Kesha La RN 03/13/20 13:06:19 General Comments: arrives to PACU from OR 5, see IVevangelin[facility] for details pt dcd from PACU in stable condition using Dr Goddard's discharge criteria. pt transferred to room 208 and report given to [facility] Finalized By: Kesha La RN Document Signatures Signed By: Kesha La RN 03/13/20 13:06 [facility] MAGR Postoperative Recordon 03-13-2020 MAGR Postoperative Record MAGR Phase II Record Summary Primary Physician: Robert Phelan DO Finalized Date/Time: 03/13/20 14:14:57 Pt. Name: JEREMI HERNANDEZ Sr/Sex: 1965 MALE Med Rec #: [id number] Physician: Robert Phelan DO Financial #: [id number] Pt. Type: D Room/Bed: / Admit/Disch: 03/13/20 07:12:00 - Institution: Phase II Case Times MAGR Pre-Care Text: Patient is free from s/s of injury. Patient remains free from compromised physical state related to surgery or anesthesia. Patient comfort maintained. Patient/family verbalize understanding of discharge instructions. Entry 1 In PACU II 03/13/20 13:08:00 Discharge from PACU 03/13/20 14:05:00 II Last Modified By: Kesha La RN 03/13/20 14:14:49 Post-Care Text: The patient remains free from s/s of injury. Patient's vital signs stable, circulation maintained, return to preop mental and physical status, opsite/dressing intact, minimal or absent nausea and vomiting, tolerates po intake. Patient verbalizes adequate pain control. Patient/family express understanding of discharge instructions. Finalized By: Kesha La RN Document Signatures Signed By: Kesha La RN 03/13/20 14:14 [facility] Preoperative Recordon 1 05-14-2019 [facility] Preoperative Record [facility] Pre-Op Record Summary Primary Physician: Robert Phelan DO Finalized Date/Time: 03/13/20 13:03:07 Pt. Name: JEREMI HERNANDEZ Sr./Sex: 1965 MALE Med Rec #: [id number] Physician: Robert Phelan DO Financial #: [id number] Pt. Type: D Room/Bed: / Admit/Disch: 03/13/20 07:12:00 - Institution: Pre-Op Case Times [facility] Pre-Care Text: Patient will be optimally prepared for surgery. Patient is free from s/s of injury. Provide information to patient/family related to plan of care. Verify patient allergies. Confirm identity and verify consent before the operative or invasive procedure. Entry 1 Patient Arrival Time 03/13/20 07:40:00 Preop Departure 03/13/20 10:35:00 Last Modified By: Jelena Diehl RN 03/13/20 13:00:33 Post-Care Text: Patient is prepared mentally and physically and is ready for surgery. The patient remains free from s/s of injury. Patient/family express understanding of plan of care and participate in decisions affecting his or her perioperrative plan of care. Allergies documented appropriately. Patient identifiers and consent correct. General Comments: Patient deneis any recent cold/flu symptoms, SOB, sleep apnea, diabetes, CP, or pacemaker/defibrillato r. Finalized By: Jelena Diehl RN Document Signatures Signed By: Jelena Diehl RN 03/13/20 13:03 Normal [facility] Operative Report - Surgeon/P kelleelisbeth 03-13-2020 Operative Report - Surgeon/Physician Preoperative diagnosis: Tear rotator cuff right shoulder Postoperative diagnosis: Rotator cuff right shoulder Tear biceps tendon long head Procedure: Arthroscopic repair of rotator cuff right shoulder Surgeon: Karmen Phelan D.O. Anesthesia: General Indications for surgery: Patient had clinical and radiographic findings consistent with a full-thickness tear. We discussed options surgical nonsurgical he requested to proceed with surgery. Estimated blood loss: Scant Complications: No no complications Findings: There was a massive full-thickness retracted tear of the rotator cuff was also a tear of the biceps tendon with a residual stump in the joint Procedure summary: Patient was brought to the operative suite he was given general anesthetic and the shoulder was then examined. There is no instability there was good range of motion. He was placed in the lateral decubitus position the right upper extremities prepped and draped in usual fashion and a timeout was taken. A posterior portal was established. Upon entering the glenohumeral joint is immediately apparent there was a full-thickness tear of the rotator cuff. Also noted was a residual stump of the tendon of the long head of the biceps. The labrum had some mild fraying but was intact the articular surface was intact. I established a lateral portal and I inserted a resector through the defect in the rotator cuff I trimmed back the biceps stump to its base leaving the labrum intact. I then repositioned the scope into the subacromial space. I took down the bursa and I inspected the undersurface of the acromium as well as the undersurface of the acromioclavicular joint. I found no spurs or areas of impingement. I then established another port anterior laterally in place graspers and I mobilized the rotator cuff I was able to bring it out to the border of the footprint laterally. I then scuffed up the footprint with a resector. I inserted 3 anchors along the medial row the footprint. ( [employer]) helacoil suture anchors. These had been loaded with ultra tape. I shuttled the ultra tape through the medial portion of the rotator cuff I then crisscrossed the limbs and anchored laterally with 2 helacoil suture anchors and one 4.75 bio swivel lock ([employer]) Creating a double row suture bridge technique with 3 anchors medially and 3 anchors laterally. There was complete coverage of the footprint with a nice approximation of the rotator cuff tissue to the footprint. I took the shoulder through range of motion and found no residual abnormalities. The repair was stable. The subacromial space was irrigated and evacuated and the portals were closed with nylon suture. Sterile dressings were applied. [Electronically Signed on: 03/13/2020 13:53 EST] Robert Phelan DO [Verified on: 03/13/2020 13:53 EST] Robert Phelan DO [facility] Patient Handouton 03-13-[address] GONZALEZ POST OPERATIVE SHOULDER INSTRUCTIONS SURGEONS WRITTEN INSTRUTCTIONS: -If you have been given a cryo cuff after surgery you should use it as much as possible for the first 24-48 hours. After that it is optional. TIP: Many patients prefer to use it a little longer because it helps reduce pain -You should wiggle your fingers frequently -Change your dressings in 1 day. If steri-strips have been applied DO NOT remove them. When the wound is clean and dry you may leave it open to air but again DO NOT remove any steri-strips that have been applied -You may shower in 1 day but do not let the water stream directly strike the wound -Do pendulum exercises for at least 10 minutes twice a day -If you have any problems or concerns, please call the office at [phone] -Follow up as scheduled [facility] 2019 Novel Coronavirus (CoVI D-19), ISAAC LCon 03-10-2020 SARS-CoV-2, ISAAC (COVID-19) LC Not Detected Not Detected [facility] Comment on above: Order Comment: [phone] Result Comment: This nucleic acid amplification test was developed and its performance characteristics determined by [employer]. Nucleic acid amplification tests include PCR and TMA. This test has not been FDA cleared or approved. This test has been authorized by FDA under an Emergency Use Authorization (EUA). This test is only authorized for the duration of time the declaration that circumstances exist justifying the authorization of the emergency use of in vitro diagnostic tests for detection of SARS-CoV-2 virus and/or diagnosis of COVID-19 infection under section 564(b)(1) of the Act, 21 U.S.C. 360bbb-3(b) (1), unless the authorization is terminated or revoked sooner. When diagnostic testing is negative, the possibility of a false negative result should be considered in the context of a patient's recent exposures and the presence of clinical signs and symptoms consistent with COVID-19. An individual without symptoms of COVID-19 and who is not shedding SARS-CoV-2 virus would expect to have a negative (not detected) result in this assay. Performed At: [facility] [address] [facility] [place] [id number] Salina Lopez MD Ph:[phone] Performed By: #### 6 [id number] ####[place] [address] Progress Note - Nurseon 02-15 Progress Note - Nurse Pre-op call for 03/13/2020 surgery done- patient given arrival time of 0715 on 03/13 and reminded of NPO after midnight except for meds that he was instructed to take, hibiclens shower, and still family/visitor restriction in place. Patient with undersstanding. [Electronically Signed on: 03/08/2020 11:45 EST] Ashlee Suero RN [Verified on: 03/08/2020 11:45 EST] Ashlee Suero RN [facility] Progress Note - Nurseon 12-2 Progress Note - Nurse Dr. Jay reviewed information from patients family doctor visit. Patient was started on Clonidine. Call made to patient and questioned how is BP and pulse has been since he started on the Clonidine. 03/04/2020 127/85 P-73, 03/05/2020 120/81 P-65 and 03/06/2020 149/88 P-74. Will inform Dr. Jay of the readings. [Electronically Signed on: 03/06/2020 12:34 EST] Jelena Diehl RN [Verified on: 03/06/2020 12:34 EST] Jelena Diehl RN Informed Dr. Jay of the readings. No orders, continue with planned procedure. [Electronically Signed on: 03/06/2020 12:36 EST] Jelena Diehl RN [facility] Progress Note - Nurseon -1 Progress Note - Nurse Dr Jay reviews PAT information and testing results. Requested the PCP office note and questioned if any old EKG's from PCP. Will Call patient's PCP today. [Electronically Signed on: 02/29/2020 08:23 EST] Jelena Diehl RN [Verified on: 02/29/2020 08:23 EST] Jelena Diehl RN [facility] Coding Summaryon 02-28-2020 Coding Summary CODING DATE: 02/28/2020 [facility] STATUS: Home PAYOR: Commercial Insurance APC DESCRIPTION 5733 Level 3 Minor Procedures ADMIT DX: REASON FOR VISIT DX: I10 Essential (primary) hypertension Z01.818 Encounter for other preprocedural examination FINAL DX: PRINCIPAL: I10 Essential (primary) hypertension SECONDARY: Z01.818 Encounter for other preprocedural examination M25.511 Pain in right shoulder PYMT PROC APC STAT DESCRIPTION DOCTOR NAME DATE NOTE: The code number assigned matches the documented diagnosis and / or procedure in the patient's chart. However, the narrative phrase printed from the coding software may appear abbreviated, or result in slightly different terminology. Coded By: Jennifer Boewr Date Saved: 02/28/2020 09:15 am [facility] Vital Signs Date Time Vital Sign Value Performing Clinician Facility 12-23-2023 13:41-0400 Body mass index (BMI) [Ratio] 35.4 kg/m2 [facility] 12-23-2023 13:41-0400 Diastolic blood pressure 70 mm[Hg] [facility] 12-23-2023 13:41-0400 Heart rate 78 /min [facility] 12-23-2023 13:41-0400 Respiratory rate 18 /min [facility] 12-23-2023 13:41-0400 SaO2% (BldA) [Mass fraction] 97 % [facility] 12-23-2023 13:41-0400 Systolic blood pressure 158 mm[Hg] [facility] 12-23-2023 11:43-0400 Body height 175.26 cm [facility] 12-23-2023 11:43-0400 Body weight 109.03 kg [facility] 11-12-2022 09:45-0400 Body height 175.26 cm Hui Lindo Other [facility] Other 11-12-2022 09:45-0400 Body mass index (BMI) [Ratio] 35.29 kg/m2 Hui Lindo Other [facility] Other 11-12-2022 09:45-0400 Body temperature 97.9 [degF] Hui Lindo Other [facility] Other 11-12-2022 09:45-0400 Body weight 108.41 kg Hui Lindo Other [facility] Other 11-12-2022 09:45-0400 Diastolic blood pressure 100 mm[Hg] Hui Lindo Other [facility] Other 11-12-2022 09:45-0400 Systolic blood pressure 163 mm[Hg] Hui Lindo Other [facility] Other Encounters Encounter Date Encounter Type Care Provider Facility Start: 12-23-2023 End: 12-23-2023 ambulatory [facility] Work Phone: Start: 12-23-2023 End: 12-23-2023 Patient encounter procedure [facility] Work Phone: Start: 03-28-2023 End: 03-28-2023 ambulatory Hui Lindo Other [facility] Other Start: 03-28-2023 Telephone encounter Hui Lindo [facility] Start: 03-18-2023 End: 03-18-2023 ambulatory Hui Lindo Other [facility] Other Start: 03-18-2023 Telephone encounter Hui Lindo [facility] Start: 11-12-2022 End: 11-12-2022 ambulatory Hui Lindo Other [facility] Other Start: 11-12-2022 Office outpatient vi sit 15 minutes Hui Lindo [facility] Start: 10-01-2022 End: 10-01-2022 ambulatory Hui Lindo Other [facility] Other Start: 10-01-2022 Telephone encounter Hui Lindo [facility] Start: 09-23-2022 End: 09-23-2022 ambulatory Hui Lindo Other [facility] Other Start: 09-23-2022 Telephone encounter Hui Lindo [facility] Start: 09-04-2022 End: 09-04-2022 ambulatory Hui Lindo Other [facility] Other Start: 09-04-2022 Telephone encounter Hui Lindo [facility] Start: 06-07-2022 (Televisit) Televisit Hui Lindo [facility] Start: 06-07-2022 End: 06-07-2022 ambulatory Hui Lindo Other [facility] Other Start: 06-07-2022 Encounter for genera l adult medical examination without abnormal findings Hui Lindo [facility] Start: 05-25-2021 Encounter for genera l adult medical examination without abnormal findings DR HUI LINDO [facility] Start: 05-24-2021 End: 05-25-[address] HUI LINDO Facility:[facility] Start: 05-24-2021 End: 05-25-2021 Encounter for general adult medical examination without abnormal findings DR HUI LINDO Facility:[facility] Procedures Date Procedure Procedure Detail Performing Clinician Start: 05-24-[address] HUI LINDO Comment on above: Performed By: #### P [facility] #### [facility] [address] [place] [address] Dr. Ciro Mesa Plan of Treatment Date Care Activity Detail Author Start: 12-23-2023 Patient referral [facility] Work Phone: Comprehensive metabo lic 2000 panel - Serum or Plasma [facility] Patient referral [facility] Work Phone: XR Hip - left 2 Views [facility] XR Lumbar spine 2 or 3 Views [facility] Immunizations Immunization Date Immunization Notes Care Provider Fa cility 01-05-2019 influenza virus vaccine, split virus (incl. purified surface antigen) Hui Guicho Other [facility] Other 01-05-2019 influenza virus vaccine, unspecified formulation [facility] Payers Date Payer Category Payer Unknown [id number] 1965 Unknown [id number] [facility] [id number] Social History Date Type Detail Facility Sex Assigned At [facility] Other Start: 1965 Sex Assigned At Male [facility] Hospital Discharge instructions 12-23-2023 Note Date & Type Note Facility 12-23-2023 Hospital Discharg e instructions Ambulatory OrdersReferral to Orthopedics Time Frame: 12/23/23, Location: None Selected [facility] Work Phone: Evaluation note 11-12-2022 Note Date & Type Note Facility 11-12-2022 Evaluation note Encounter Date Diagnosis Assessment Notes Oct, Right otitis media with effusion (ICD-10 - H65.91) Ear infections are often a secondary infection caused from an URI or allergies. Take medication as directed, and complete all doses of medication even if symptoms are no longer present. Use OTC Tylenol or Motrin as directed for discomfort and fevers. Push fluids/rest. Follow up with PCP if symptoms do not improve after 2-3 days on antibiotic or if new symptoms develop. Follow up with PCP sooner if symptoms worsen. Patient encouraged to follow up with PCP after completion of abx to have ears checked. Patient verbalized understanding and agreement of treatment plan. Oct, Acute recurrent maxillary sinusitis (ICD-10 - J01.01) Finish antibiotic [facility] Other Evaluation note 06-07-2022 Note Date & Type Note Facility 06-07-2022 Evaluation note Encounter Date Diagnosis Assessment Notes May, Acute non-recurren t maxillary sinusitis (ICD-10 - J01.00) Sinus infections can be triggered by a secondary infection from a viral URI or even seasonal allergies. Take medications as directed. Use saline nasal spray prior to presciption nasal spray. Take medications as directed, and complete all doses of medication even if you start to feel better. Patient advised to follow up with PCP if symptoms persist or worsen. Patient verbalized understanding and agreement with treatment plan. May, Well adult exam (ICD-10 - Z00.00) Requests labs only - not a wellness exam today May, Screening PSA (prostate specific antigen) (ICD-10 - Z12.5) [facility] Other Evaluation note Note Date & Type Note Facility Evaluation note No Information [facility] Other Evaluation note Note Date & Type Note Facility Evaluation note Diagnosis Onset Date Essential hypertension acute Left hip pain acute Lumbar pain with radiation down left leg acute Screening PSA (prostate specific antigen) acute [facility] Work Phone: History general Narrative - Reported Note Date & Type Note Facility History general Narrative - Reported Type Medical History Bronchitis Medical History LUMBAR PAIN WITH RADIATION DOWN LEFT LEG Medical History Back pain, thoracic Medical History Anxiety and depression Medical History Essential hypertension [facility] Other History general Narrative - Reported Note Date & Type Note Facility History general Narrative - Reported Type Medical History Bronchitis Medical History LUMBAR PAIN WITH RADIATION DOWN LEFT LEG Medical History Back pain, thoracic Medical History Anxiety and depression Medical History Essential hypertension Surgical History Problem Title : past surgical history reviewed, Problem Description : past surgical history reviewed, Problem Comment : reviewed - no changes required, Problem Status : Active, [facility] Other Summary Purpose Family History Relationship Condition Age at Onset Recorded Date/T yue father Hypertension Unknown Family history of lung cancer Unknown Heart disease Unknown Malignant neoplasm Unknown History of stroke Unknown Advance Directives Advance Directive Response Recorded Date/ Time Advance Directives No December 18, 2023 4:05pm Hospital Course Note [facility] SURGERY Clinical Discharge Summary PERSON INFORMATION Name JEREMI HERNANDEZ Sr Age 54 Years 1965 Sex MALE Language [place] PCP Guicho MEDINA, Hui Potts Marital Status Med Service Ambulatory Surgery Acct# Arrival 03/13/2020 07:12:00 Visit Reason SURGERY - RIGHT SHOULDER SCOPE WITH ROTATOR CUFF REPAIR - RAPP AND NEPHEW IMPLANT Acuity LOS 024 05:01 Address: [address] [place] [address] Comment: PROVIDER INFORMATION VITALS INFORMATION Vital Sign Triage Latest Temp Oral Temp Temporal Temp Intravascular Temp Axillary Temp Rectal 02 Sat 99 % 99 % Respiratory Rate Peripheral Pulse Rate Apical Heart Rate Blood Pressure / 97 mmHg / 77 mmHg Comment: MEDICAL INFORMATION Allergy Info: No known allergies Prescriptions Given: albuterol (Albuterol (Eqv-ProAir HFA) 90 mcg/inh inhalation aerosol) 2 puff(s) Inhalation 2 times a day as needed wheezing. albuterol (albuterol 0.083% inh solution) 6 Milliliter Inhalation Every 6 hours as ne (more content not included)... Note Patient: JEREMI HERNANDEZ Sr Age: 54 years Sex: MALE : 1965 Associated Diagnoses: None Author: Nato Goddard MD Postoperative Information Post Operative Note: Post Anesthesia Care Unit. Health Status Allergies: Allergic Reactions (All) No known allergies Physical Examination General: No acute distress. Respiratory: Respirations are non-labored. Review / Management Condition: Stable. Assessment Anesthetic outcome No anesthetic complications noted. Adequate pain relief. No Complaint of nausea and vomiting. Plan Transfer/ Discharge: Patient can be discharged from PACU when criteria met. Condition stable. [Electronically Signed on: 03/13/2020 12:38 EST] Nato Goddard MD [Verified on: 03/13/2020 12:38 EST] Nato Goddard MD Procedure Findings Note Patient: JEREMI HERNANDEZ Sr Age: 54 years Sex: MALE : 1965 Associated Diagnoses: None Author: Nato Goddard MD Postoperative Information Post Operative Note: Post Anesthesia Care Unit. Health Status Allergies: Allergic Reactions (All) No known allergies Physical Examination General: No acute distress. Respiratory: Respirations are non-labored. Review / Management Condition: Stable. Assessment Anesthetic outcome No anesthetic complications noted. Adequate pain relief. No Complaint of nausea and vomiting. Plan Transfer/ Discharge: Patient can be discharged from PACU when criteria met. Condition stable. [Electronically Signed on: 03/13/2020 12:38 EST] Nato Goddard MD [Verified on: 03/13/2020 12:38 EST] Nato Goddard MD Chief Complaint and Reason for Visit Chief Complaint wellness/hip pain Reason for Visit Essential hypertensi on Left hip pain Lumbar pain with radiation down left leg Screening PSA (prostate specific antigen) Additional Source Comments (unrecognized sect ion and content) No Status Records FoundNo Status Records Found INFORMATION SOURCE (unrecogn ized section and content) DATE CREATED AUTHOR 03/24/2020 [facility] DATE CREATED AUTHOR AUTHOR'S ORGANIZ ATION 05/27/2021 [facility] REASON FOR VISIT (unrecogniz ed section and content) SINUS CONGESTIONRefillRefill messageCOLD SYMPTOMS, COUGHING MUCUS, EARS PLUGGEDrefillRefills Care Teams (unrecognized sec tion and content) Team Status: Active Member Role Status Dates Hui Lindo MD Primary Care Provider Active Team Status: Inactive Member Role Status Dates Hui Lindo MD Primary Care Provide r, Attending Provider Active Start: December 23, 2023 End: December 23, 2023 Goals (unrecognized section and content) Goals may be documented in a n alternate section FOR RECORDS PERTAINING TO PATIENTS WHO ARE OR HAVE BEEN ENROLLED IN A CHEMICAL DEPENDENCY/SUBSTANCEABUSE PROGRAM, SOME INFORMATION MAY BE OMITTED. This clinical summary was aggregated from multiple sources. Caution should be exercised in using it in the provision of clinical care. This summary normalizes information from multiple sources, and as a consequence, information in this document may materially change the coding, format and clinical context of patient data. In addition, data may be omitted in some cases. CLINICAL DECISIONS SHOULD BE BASED ON THE PRIMARY CLINICAL RECORDS. [facility] provides no warranty or guarantee of the accuracy or completeness of information in this document.
== END 2024-01-13 08:20 | disposition home or self-care (01) ==
LOC: MRI 08:19
PROVIDERS: PCP Family Medicine; Visit Provider Orthopaedic Surgery
DX: M54.50 Low back pain, unspecified (principal); M51.369 Other intervertebral disc degeneration, lumbar region without mention of lumbar back pain or lower extremity pain
CPT/HCPCS: 72148

== ENCOUNTER 2024-02-20 11:35 | Outpatient (OUT) | payer BC, SELFPAY ==
--- NOTE | 2024-02-20 | XR_ITS ---
The [address] [address] Patient Name: YENNI HERNANDEZ MRN: [id number] date: 1965 Sex: M Assigned Patient Location: Current Patient Location: Accession/Order Number: [id number] Exam Date: 02/20/2024 11:35 Report Date: 02/22/2024 04:59 At the request of: GLEN OTTO Procedure: XR lumbar spine 2-3V EXAMINATION: XR lumbar spine 2-3V HISTORY: LUMBAR SPINE PAIN COMPARISON: XR lumbar spine 12/25/2023 FINDINGS: BONES: Mild anterior wedging and superior endplate changes of L1 vertebral body. Normal alignment of the vertebral bodies. No significant facet arthropathy. DISC SPACES: No significant disc height narrowing, subluxation, or endplate abnormality. PARASPINOUS: Negative. No paraspinous abnormality is seen. OTHER: Negative. XR/XR lumbar spine 2-3V IMPRESSION: 1. Mild compression fracture involving superior endplate of L1; new since 12/25/2023. Electronically authenticated by: WILD MILLAN Date: 02/22/2024 04:59
== END 2024-02-20 11:36 | disposition home or self-care (01) ==
LOC: EC 11:35
PROVIDERS: PCP Family Medicine; Visit Provider Orthopaedic Surgery Orthopaedic Surgery of the Spine
DX: M54.50 Low back pain, unspecified (principal); M48.56XA Collapsed vertebra, not elsewhere classified, lumbar region, initial encounter for fracture
CPT/HCPCS: 72100

== ENCOUNTER 2024-09-23 14:08 | Outpatient (OUT) | payer BC, SELFPAY ==
--- NOTE | 2024-09-23 14:42 | PM.CN ---
Consult Note: HPI Data of Consult Patient: new to practice Requesting Physician: Sophia Yang NP Primary Care Provider: Hui Kulkarni MD Consult Narrative Reason for consult: low back pain Narrative: Jeremi Treviño a pleasant 58 year old male presents for evaluation of chronic low back pain starting around 2011 increasing over the last year. pt has failed to benefit from > 6 weeks of PT and HEP, heat, ice, tylenol, NSAIDs. was previously evaluated by Dr Rosado who recommended decompression/fusion however pt is not interested in surgical intervention. Prior MRI of lumbar spine consistent with multilevel degenerative changes and stenosis. pain today 5/10 sharp increasing to 10/10 with sitting, standing, walking, travel. pt has failed tylenol, motrin, tylenol, ASA and other unknown medications with prior physicians. cc:: CC: Sophia Yang NP Exam Constitutional Documenting provider has reviewed patient's vital signs: yes Common normals: no apparent distress, oriented x3, healthy appearing, alert and well nourished General appearance: cooperative HENMT Common normals: normocephalic, hearing grossly normal bilaterally and moist oral mucous membranes Head and scalp: normocephalic Eye Common normals: PERRL Pupil: PERRL Neck & C-Spine Common normals: full ROM General: normal visual inspection Chest Common normals: inspection of chest normal Respiratory Common normals: normal respiratory effort, no retractions and no use of accessory muscles Back & Pelvis Lumbar spine/lower back: ROM limited, pain with ROM, lumbar spinal tenderness and straight leg raise positive left; straight leg raise negative right Sacroiliac joints: SI joint(s) abnormal Other: left sij positive gem(patricks), gaenslens, thigh thrust, compression test decreased sensation left L4,5,S1 strength 4/5 in LLE and 5/5 in RLE significant hyperalgesia and discomfort on exam Neuro Common normals: oriented x3 Sensorium/orientation: alert Psych Common normals: mental status grossly normal, thought process normal, cooperative, affect normal, speech normal and activity/motor behavior normal Speech: normal speech Thought process: normal thought process Results Additional Findings Additional findings: If on a controlled substance or opioids, I have checked an [place]AR[place] report on this patient and there are no aberrancies noted in the prescribing history.??If on a controlled substance or opioid a drug screen was completed and reviewed within the last year, and if there has not been a drug screen completed we ordered one today to monitor higher risk, state monitored pain medication use. As part of providing excellent, safe, comprehensive care, the following was completed at our patient's visit: 1. A medication reconciliation and review to ensure accurate knowledge of current/active medications, including asking our patients to inform us about any dyyp-wcw-dgtboby medications or herbal remedies/nutritional supplements/alternative remedies. 2. A review to specifically ensure our patients have had annual screening for screening for depression, screening for tobacco use, and screening for unhealthy alcohol use. For concerning screenings had a discussion with the patient, provided patient education, and recommended follow-up with primary care provider when appropriate. If patient noted with a risk of falling, they received education on strength, gait, and balance training to prevent future risk of falling. Portions of this note may have been carried over from the previous visit and updated as appropriate. Please note this office utilizes paper charting in addition to the electronic medical record. A list of current medications, vitals, and PMH is available there as the clinical staff outside of myself do not have access to [employer] charting during the clinic day operations. As part of providing quality comprehensive care the current medications, vitals, and PMH were reviewed in the paper chart. Assessment and Plan Assessment and Plan (1) Lumbar stenosis with neurogenic claudication: Assessment and Plan: The patient has had over 3 months of moderate to severe low back and LLE pain with functional impairment and inadequate response to conservative care including NSAIDS (unless there are contraindication such as concurrent blood thinners), multiple oral or topical pain medications, and home exercise program/physical therapy.? Patient has completed >6 weeks of guided home exercise program and/or formal physical therapy program without relief of their symptoms.? The Oswestry Disability Index was completed, and the patient scored a 42%.? The patient noted the following:?? moderate to severe pain impacting ADLs, sitting, standing, social life, travel We discussed the risks and benefits of the procedure with the patient, and we are NOT planning on using sedation as outlined in the guidelines from Medicare unless there is a documented reason that sedation would be strongly recommended.?? ?The procedure will be completed with fluoroscopic guidance.? (2) Sacroiliitis: (3) Lumbar spondylosis: (4) Coccyx pain: Plan left L4-5 L5-S1 TFESI under fluoroscopy continue otc medications continue HEP as tolerated f/u after TFESI, consider left SIJ injection
== END 2024-09-23 14:09 | disposition home or self-care (01) ==
LOC: PM 14:09
PROVIDERS: PCP Family Medicine; Visit Provider Nurse Practitioner
DX: M48.062 Spinal stenosis, lumbar region with neurogenic claudication (principal); M46.1 Sacroiliitis, not elsewhere classified; M47.816 Spondylosis without myelopathy or radiculopathy, lumbar region; M53.3 Sacrococcygeal disorders, not elsewhere classified
CPT/HCPCS: G0463

== ENCOUNTER 2024-10-18 09:01 | Day surgery (SDC) | payer BC, SELFPAY ==
--- OUTSIDE RECORDS SUMMARY | 2024-10-18 09:03 | XMS_ITS | Patient Health Record ---
Author Organization [facility] Address [address] [place] [address] Care Team Providers Care Smooth Plater Name Role Phone Hui Kulkarni M.D. Primary Care Provider Unavail able Hubert Bernal Unavailable [phone] Salazar Claudia Unavailable Reason For Referral Reason LAMONTE...........PLEASE OBTAIN AUTHORIZATION FOR MRI LUMBAR Diagnosis 1 Lumbar pain (M54.50) Referral Organization [facility] Referring Provider First Name Hubert Referring Provider Last Name Dolores Referring Provider Speciality Orthopedic Surgery Referred Organization [facility] Referred Address [place], [place], Procedure 1 MRI Lumbar Spine w/o Dye ([id number]) General Notes Isabella Maddox 2023 11:25:48 AM >PATIENT TO SEE DR. PUGA AFTER MRI, Demi Degroot 12/29/2023 02:14:51 PM >NEED DICTATIONMikayla Amy 12/30/2023 10:06:12 AM >FORM AND CLINICAL FAXEDMikayla Amy 01/05/2024 09:44:40 AM >CALLED TO CHECK STATUS. PER AYAZ WOODS AUTH REQUIRED CASE CX MA NOTIFIED REF FAXED TO Amanda EASTMAN Kimberly 01/05/2024 04:14:02 PM > Faxed order to [facility] Referral Priority Routine Medications Medication SIG (Take, Route, Frequency, Duration) Notes Start Date End Date Status losartan Active albuterol Active Vitamins Active Social History Tobacco Use: Social History Observation Description Date Details (start date - stop date) Current Smoker NA - NA AUDIT-C (Standard) Question Answer Notes Did you have a drink contain ing alcohol in the past year? Yes How often did you have six o r more drinks on one occasion in the past year? Never (0 point) How many drinks did you have on a typical day when you were drinking in the past year? 1 or 2 drinks (0 point) How often did you have a dri nk containing alcohol in the past year? Monthly or less (1 point) Points 1 Interpretation Negative Tobacco Control (Standard) Question Answer Notes Tobacco use: Current smoker Problems Problem Type SNOMED Code ICD Code Onset Dates Problem Status W/U Status Risk Notes Problem 158403812 Spinal stenosis, lumbosacral region (M48.07) Active confirmed Problem 7409481 Radiculopathy, lumbosacral region (M54.17) Active confirmed Vital Signs Height 5'8 in 12/29/2023 Weight 240 lbs 12/29/2023 BMI 36.49 12/29/2023 Encounters Encounter Location Date Provider Diagnosis [facility] [address] [place] [address] 12/29/2023 Hubert [place] Lumbar pain M54.50 [facility] [address] [place] [address] 02/20/2024 Claudia [facility] Spinal stenosis, lumbosacral region M48.07 and Radiculopathy, lumbosacral region M54.17 Assessments Encounter Date Diagnosis (ICD Code) Assessment Notes Treatment Notes Treatment Clinical Notes Section Notes 12/29/2023 Lumbar pain (ICD-10 - M54.50) 02/20/2024 Spinal stenosis, lumbosacral region (ICD-10 - M48.07) 1. L3-4 NFS/radicul opathy 2. L5-S1 NFS/radicul opathy 02/20/2024 Radiculopathy, lumbosacral region (ICD-10 - M54.17) 1. L3-4 NFS/radicul opathy 2. L5-S1 NFS/radicul opathy 12/29/2023 Other For his chronic back pain with radicular symptoms that have failed extensive conservative treatment I have recommended an MRI scan and evaluation by Dr. Saint Lopez. He will follow-up with me on an as-needed basis. Import medication 02/20/2024 Other MRI reviewed and plan established by Dr. Mckeon. I reviewed patient's MRI results with him and at this time we are recommending a L5-S1 decompression and fusion. It was discussed with patient that fusion is necessary due to the fact that total facetecetomy's would need to be performed In order to free up the foraminal stenosis. This would lead to instability requiring a fusion. Surgical risks and benefits were discussed. Risks include, but are not limited to paralysis, infection, dural tear, nerve root injury, nonunion, etc. Patient would like to discuss with his and will call back if interested in surgery. The patient is very much in agreement with the treatment and/or diagnostic plan set forth and all questions were answered to the patient's satisfaction. Thanks once again. If we can be of further service to your patients with disorders of the spine, cervical, thoracic, or lumbar, please do not hesitate to contact Dr. Mckeon. Best regards, 1. L3-4 NFS/radicul opathy 2. L5-S1 NFS/radicul opathy Plan Of Treatment Pending Test Test Name Order Date MRI : Lumbosacral Spine W/O Contrast - 7 2148 12/29/2023 Lumbar spine 2v flex and ext - [id number] 08/2023 Insurance Providers Payer Name Payer Address Payer Phone Subscriber Number Group Number Insured Name Patient Relationship to Insured Coverage Start Date Coverage End Date Barbara JOHNSON [address] [place] [address] [id number] YENNI HERNANDEZ Self - patient is the insured Medical (General) History Medical History History ICD Code High Blood Pressure Bronchitis Stomach ulcers Gastric Reflux Anxiety Depression Seen a Psychiatrist Surgical History Surgery Date(Month/Year) Foreign body excision 2007 ROTATOR CUFF REPAIR 02/2020
--- OUTSIDE RECORDS SUMMARY | 2024-10-18 09:03 | XMS_ITS | Clinical Summary ---
Author Organization [facility] Address [address] [place] [address] Care Team Providers Care Gear Shaper Name Role Phone Unavailable Primary Care Provider Unavailabl e Allergies Active Allergy Reactions Criticality Noted Date Comments Gabapentin 11/12/2022 Ibuprofen 11/12/2022 Esomeprazole 11/12/2022 Medications losartan (Cozaar) 50 MG tablet Take 50 mg by mouth in the morning. Active albuterol HFA 90 mcg/act inhaler Inhale 1 puff every 4 (four) hours if needed for wheezing. Active albuterol (2.5 MG/3ML) 0.083% nebulizer solution Take 2.5 mg by nebulization every 6 (six) hours if needed for wheezing. Active clotrimazole (Lotrimin) 1 % external solution Apply topically 2 (two) times a day. Active neomycin-colist in-hydrocortiso ne-thonzonium (Cortisporin-TC ) 3.3-3-10-0.5 MG/ML otic suspension Administer 4 drops into the left ear in the morning and 4 drops at noon and 4 drops in the evening and 4 drops before bedtime. Active fluticasone (Flonase) 50 MCG/ACT nasal sprayIndication s:OME (otitis media with effusion), right,Acute non-recurrent sinusitis, unspecified location Administer 2 sprays into each nostril in the morning. Shake gently. Before first use, prime pump. After use, clean tip and replace cap.. 16 g 11 3 Active Active Problems Problem Noted Date Diagnosed Date OME (otitis media with effusion), right 11/21/19 23 Acute non-recurrent sinusitis 11/20/2022 COPD with asthma 11/12/2022 Anxiety with depression 11/12/2022 Back pain 11/12/2022 Hypertension 11/12/2022 Conductive hearing loss, bilateral 11/12/2022 Infective otitis externa 11/12/2022 Family History Medical History Relation Name Comments Drug abuse Brother Heart failure Father Hypertension Father Lung cancer Father Stroke Father Cancer Mother Relation Name Status Comments Brother x2 Father Mother Sister Alive x2 Social History Tobacco Use Types Packs/Day Years Used Date Smoking Tobacco: Every Day Cigarettes Smokeless Tobacco: Never Tobacco Cessation:Ready to Q uit: Not Asked; Counseling Given: Not Answered Alcohol Use Standard Drinks/Week Comments Not Currently 0 (1 standard drink = 0.6 oz pure alcohol) caffeine intake: 1-2 cups per day of coffee; soda Sex and Gender Information Value Date Recorded Sex Assigned at Not on file Legal Sex Male 7:17 PM EDT Gender Identity Not on file Sexual Orientation Not on file Occupation Industry Job Start Date Job End Date Disabled Not on file Not on file Not on file Last Filed Vital Signs Vital Sign Reading Time Taken Comments Blood Pressure 134/95 11/20/2022 3:28 PM EDT Pulse - - Temperature - - Respiratory Rate - - Oxygen Saturation - - Inhaled Oxygen Concentration - - Weight 108 kg (238 lb) 11/20/2022 3:28 PM EDT Height 175.3 cm (5' 9 ) 11/20/2022 3:28 PM EDT Body Mass Index 35.15 11/20/2022 3:28 PM EDT Plan of Treatment Not on file Insurance [facility] Member Subscriber Plan / Payer (Ef fective 2021-Present) Name:Jeremi Treviño Sr. Member ID:[id number] Relation to Subscriber:Spouse Name:Shavonne Treviño Subscriber ID:[id number] Date of :1968 (Home) Address: [address] [place] [id number] Payer ID:Not on file Type:Not on file Address: [facility] [address] [place] [address]
--- OUTSIDE RECORDS SUMMARY | 2024-10-18 09:03 | XMS_ITS | Patient Health Record ---
Author Organization [facility] Address [address] [place] [address] Care Team Providers Care Major Sales Associate Name Role Phone Hui Kulkarni Primary Care Provider Fransisca Deshpande Unavailable [phone] Allergies No Known Allergies Reason For Referral No Information Medications Medication SIG (Take, Route, Frequency, Duration) Notes Start Date End Date Status Albuterol Active Losartan Potassium 50 MG 1 tablet Orally Once a day Active Social History Tobacco Use: Social History Observation Description Date Details (start date - stop date) Current Smoker NA - NA Tobacco Control (Standard) Question Answer Notes Tobacco use: Current every day smoker Vital Signs Heart Rate 101 /min 02/05/2024 Temperature 97.2 degrees Fahrenheit 02/05/2024 Oximetry 98 % 02/05/2024 Height 69 in 02/05/2024 Weight 250 lbs 02/05/2024 BMI 36.91 kg/m2 02/05/2024 Encounters Encounter Location Date Provider Diagnosis [facility] ([facility] [address] [place] [address] [place] [address] 02/05/2024 Fransisca Garcia Acquired keratosis [keratoderma] palmaris et plantaris L85.1 and Tinea unguium B35.1 Assessments Encounter Date Diagnosis (ICD Code) Assessment Notes Treatment Notes Treatment Clinical Notes Section Notes 02/05/2024 Acquired keratosis [keratoderma] palmaris et plantaris (ICD-10 - L85.1) The patient is a 58-year-old gentleman who presents with a painful hyperkeratotic lesion on the left plantar foot. The lesion was pared using a 15 blade without incident. The patient noted pain relief postprocedure. Lesion is consistent with intractable plantar keratosis. He was encouraged to keep the area well moisturized 02/05/2024 Tinea unguium (ICD-10 - B35.1) The patient was prescribed oral Lamisil by his PCP which provided no relief in symptoms. I recommend he use topical Vicks VapoRub to soften the nail which will provide pain relief and make the nail easier to file and trim. Plan Of Treatment No Information Insurance Providers Payer Name Payer Address Payer Phone Subscriber Number Group Number Insured Name Patient Relationship to Insured Coverage Start Date Coverage End Date BCBS OUT OF STATE [address] [place] [address] [id number] Jeremi Treviño Self - patient is the insured Medical (General) History Medical History History ICD Code hypertension Surgical History Surgery Date(Month/Year) rotator cuff surgery right finger surgery
--- OUTSIDE RECORDS SUMMARY | 2024-10-18 09:11 | XMS_ITS | CCD ---
Author Organization [facility] Care Team Providers Care Brake Repair Mechanic Name Role Phone DR HUI LINDO Admitting Unavailable GUICHO, DR HUI Potts Attending Unavailable DR HUI LINDO Primary Care Unavailable DR WILD MILLAN Consulting Unavailable GUICHO, DR HUI Potts Consulting Unavailable Hui Lindo Unavailable Allergies Allergy Classification Reported Allergen(s) Allergy Type Date of Onset Reaction(s) Facility (8 sources) Esomeprazole Drug Allergy 12-23-19 24 Unknown, Diarrhea [facility] (8 sources) gabapentin Drug Allergy 12-23-19 24 Unknown, Unknown Reaction [facility] (7 sources) Ibuprofen Drug Allergy Unknown [facility] Other (3 sources) Ibuprofen Drug Allergy 02-18-20 14 Unknown [facility] Other (3 sources) NexIUM *ULCER DRUGS/ANTISPASMO DICS/ANTICHOLINE RGIC Propensity to adverse reactions 02-18-20 14 Unknown [facility] Other Medications Current Medications Medication Drug Class(es) [...] Drug Class(es) Dates Sig (Normalized) Sig (Original) [id number] 200 actuat albuterol 0.09 mg/actuat metered dose [...] 05-24-2021 BASO # 0.0 103/ul Normal 0.0-0.1 [facility] Comment on above: Performed By: #### C BC #### [facility] [address] [address] [address] Ciro Mesa Basophils/100 WBC (Bld) 0.5 % Normal 0.2-2.0 [facility] Comment on above: Performed By: #### C BC #### [facility] [address] [address] [address] Ciro Mesa EO # 0.2 103/ul Normal 0.0-0.7 [facility] Comment on above: Performed By: #### C BC #### [facility] [address] [address] [address] Ciro Mesa Eosinophils/100 WBC (Bld) 2.4 % Normal 0.9-7.0 [facility] Comment on above: Performed By: #### C BC #### [facility] [address] [address] [address] Ciro Mesa Erythrocyte distribution width (RBC) [Ratio] 13.1 % Normal 11.0-15.0 [facility] Comment on above: Performed By: #### C BC #### [facility] [address] [place] [address] Dr. Ciro Mesa Hematocrit (Bld) [Volume fraction] 48.6 % Normal 42.0-54.0 [facility] Comment on above: Performed By: #### C BC #### [facility] [address] [address] [address] Ciro Mesa Hemoglobin (Bld) [Mass/Vol] 16.5 g/dL Normal 14.0-18.0 [facility] Comment on above: Performed By: #### C BC #### [facility] [address] [place] [address] Dr. Ciro Mesa IG # 0.03 10e3/ul Normal 0.00-0.03 [facility] Comment on above: Performed By: #### C BC #### [facility] [address] [place] [address] Dr. Ciro Mesa IG % 0.4 % Normal 0.0-0.5 [facility] Comment on above: Performed By: #### C BC #### [facility] [address] [place] [address] Dr. Ciro Mesa LYMPH # 2.7 103/ul Normal 1.2-3.8 [facility] Comment on above: Performed By: #### C BC #### [facility] [address] [place] [address] Dr. Ciro Mesa Lymphocytes/100 WBC (Bld) 32.2 % Normal 20.5-60.0 [facility] Comment on above: Performed By: #### C BC #### [facility] [address] [place] [address] Dr. Ciro Mesa MANUAL DIFF REQ NO Normal [facility] Comment on above: Performed By: #### C BC #### [facility] [address] [place] [address] Dr. Ciro Mesa MCH (RBC) [Entitic mass] 32.1 pg Normal 25.9-34.0 [facility] Comment on above: Performed By: #### C BC #### [facility] [address] [place] [address] Dr. Ciro Mesa MCHC (RBC) [Mass/Vol] 34.0 g/dL Normal 29.9-35.2 [facility] Comment on above: Performed By: #### C BC #### [facility] [address] [place] [address] Dr. Ciro Mesa MCV (RBC) [Entitic vol] 94.6 fL Critically high 80.0-94.0 [facility] Comment on above: Performed By: #### C BC #### [facility] [address] [place] [address] Dr. Ciro Mesa MONO # 0.7 103/ul Normal 0.3-0.8 [facility] Comment on above: Performed By: #### C BC #### [facility] [address] [place] [address] Dr. Ciro Mesa Monocytes/100 WBC (Bld) 8.2 % Normal 1.7-12.0 [facility] Comment on above: Performed By: #### C BC #### [facility] [address] [place] [address] Dr. Ciro Mesa NEUT # 4.7 103/ul Normal 1.4-6.5 [facility] Comment on above: Performed By: #### C BC #### [facility] [address] [place] [address] Dr. Ciro Mesa Neutrophils/100 WBC (Bld) 56.3 % Normal 43.0-75.0 [facility] Comment on above: Performed By: #### C BC #### [facility] [address] [place] [address] Dr. Ciro Mesa Platelet mean volume (Bld) [Entitic vol] 9.1 fL Critically low 9.5-13.5 [facility] Comment on above: Performed By: #### C BC #### [facility] [address] [place] [address] Dr. Ciro Mesa PLT 257 103/ul Normal 150-450 [facility] Comment on above: Performed By: #### C BC #### [facility] [address] [place] [address] Dr. Ciro Mesa RBC 5.14 106/ul Normal 4.70-6.10 [facility] Comment on above: Performed By: #### C BC #### [facility] [address] [place] [address] Dr. Ciro Mesa WBC 8.3 103/ul Normal 4.0-11.0 [facility] Comment on above: Performed By: #### C BC #### [facility] [address] [place] [address] Dr. Ciro Mesa GLYCOHEMOGLOBIN A1Con 2021 ADA RECOMMENDATION ADA THERAPEUTIC TARG ET 6.0 - 7.0 ACTION SUGGESTED > 7.0 Normal [facility] Comment on above: Performed By: #### A 1C #### [facility] [address] [address] [address] Ciro Mesa Glucose [Mass/Vol] 120 mg/dL Normal [facility] Comment on above: Performed By: #### A 1C #### [facility] [address] [address] [address] Ciro Mesa HbA1c (Bld) [Mass fraction] 5.8 % Normal <=6.0 [facility] Comment on above: Performed By: #### A 1C #### [facility] [address] [place] [address] Dr. Ciro Mesa LIPID PROFILEon 05-24-2021 CHOL-HDL RATIO NORM SEE BELOW Normal [facility] Comment on above: Result Comment: 3.3 - 4.4 LOW RISK 4.4 - 7.1 AVERAGE RISK 7.1 - 11.0 MODERATE RISK >11.0 HIGH RISK Performed By: #### C MP, TSH, LIPID #### [facility] [address] [place] [address] Dr. Ciro Mesa Cholesterol [Mass/Vol] 218 mg/dL Critically high <=200 [facility] Comment on above: Performed By: #### C MP, TSH, LIPID #### [facility] [address] [address] [address] Ciro Mesa Cholesterol in HDL [Mass/Vol] 40 mg/dL Normal [facility] Comment on above: Performed By: #### C MP, TSH, LIPID #### [facility] [address] [address] [address] Ciro Mesa Cholesterol in LDL [Mass/Vol] 148.2 mg/dL Normal [facility] Comment on above: Performed By: #### C MP, TSH, LIPID #### [facility] [address] [address] [address] Ciro Mesa Cholesterol.total/Ch olesterol in HDL [Mass ratio] 5.5 {ratio} Normal [facility] Comment on above: Performed By: #### C MP, TSH, LIPID #### [facility] [address] [address] [address] Ciro Mesa HDL NORMAL > or = 60 mg/dl - LO W CARDIOVASCULAR RISK <40 mg/dl - HIGH CARDIOVASCULAR RISK Normal [facility] Comment on above: Performed By: #### C MP, TSH, LIPID #### [facility] [address] [address] [address] Ciro Mesa LDL CALC NORMAL SEE BELOW Normal [facility] Comment on above: Result Comment: <100 mg/dl OPTIMAL 100 - 129 mg/dl NEAR OR ABOVE OPTIMAL 130 - 159 mg/dl BORDERLINE HIGH 160 - 189 mg/dl HIGH >190 mg/dl VERY HIGH Performed By: #### C MP, TSH, LIPID #### [facility] [address] [place] [address] Dr. Ciro Mesa Triglyceride [Mass/Vol] 149 mg/dL Normal <=150 [facility] Comment on above: Performed By: #### C MP, TSH, LIPID #### [facility] [address] [place] [address] Dr. Ciro Mesa VLDL CALC 29.8 mg/dL Normal [facility] Comment on above: Performed By: #### C MP, TSH, LIPID #### [facility] [address] [place] [address] Dr. Ciro Mesa PROF 14(COMP METB)on 022 Albumin [Mass/Vol] 3.9 g/dL Normal 3.5-5.0 [facility] Comment on above: Performed By: #### C MP, TSH, LIPID #### [facility] [address] [address] [address] Ciro Mesa Albumin/Globulin [Mass ratio] 0.9 {ratio} Normal [facility] Comment on above: Performed By: #### C MP, TSH, LIPID #### [facility] [address] [address] [address] Ciro Mesa ALP [Catalytic activity/Vol] 79 U/L Normal 38-126 [facility] Comment on above: Performed By: #### C MP, TSH, LIPID #### [facility] [address] [address] [address] Ciro Mesa ALT [Catalytic activity/Vol] 35 U/L Normal 21-72 [facility] Comment on above: Performed By: #### C MP, TSH, LIPID #### [facility] [address] [address] [address] Ciro Mesa Anion gap [Moles/Vol] 10.3 mmol/L Normal [facility] Comment on above: Performed By: #### C MP, TSH, LIPID #### [facility] [address] [address] [address] Ciro Mesa AST [Catalytic activity/Vol] 21 U/L Normal 17-59 [facility] Comment on above: Performed By: #### C MP, TSH, LIPID #### [facility] [address] [address] [address] Ciro Mesa Bilirubin [Mass/Vol] 0.6 mg/dL Normal 0.2-1.3 [facility] Comment on above: Performed By: #### C MP, TSH, LIPID #### [facility] [address] [address] [address] Ciro Mesa Calcium [Mass/Vol] 8.5 mg/dL Normal 8.4-10.2 [facility] Comment on above: Performed By: #### C MP, TSH, LIPID #### [facility] [address] [address] [address] iCro Mesa Chloride [Moles/Vol] 105 mmol/L Normal 98-107 [facility] Comment on above: Performed By: #### C MP, TSH, LIPID #### [facility] [address] [address] [address] Ciro Mesa CO2 [Moles/Vol] 30.5 mmol/L Critically high 22.0-30.0 [facility] Comment on above: Performed By: #### C MP, TSH, LIPID #### [facility] [address] [address] [address] Ciro Mesa Creatinine [Mass/Vol] 0.96 mg/dL Normal 0.66-1.25 [facility] Comment on above: Performed By: #### C MP, TSH, LIPID #### [facility] [address] [place] [address] Dr. Ciro Mesa EGFR-AF FRENCH >60 Normal >=60 [facility] Comment on above: Performed By: #### C MP, TSH, LIPID #### [facility] [address] [place] [address] Dr. Ciro Mesa EGFR-NON AF FRENCH >60 Normal >=60 [facility] Comment on above: Performed By: #### C MP, TSH, LIPID #### [facility] [address] [place] [address] Dr. Ciro Mesa Globulin (S) [Mass/Vol] 4.3 g/dL Normal [facility] Comment on above: Performed By: #### C MP, TSH, LIPID #### [facility] [address] [place] [address] Dr. Ciro Mesa Glucose [Mass/Vol] 131 mg/dL Critically high 74-106 [facility] Comment on above: Performed By: #### C MP, TSH, LIPID #### [facility] [address] [place] [address] Dr. Ciro Mesa Potassium [Moles/Vol] 3.8 mmol/L Normal 3.4-5.0 [facility] Comment on above: Performed By: #### C MP, TSH, LIPID #### [facility] [address] [place] [address] Dr. Ciro Mesa Protein [Mass/Vol] 8.2 g/dL Normal 6.1-8.2 [facility] Comment on above: Performed By: #### C MP, TSH, LIPID #### [facility] [address] [place] [address] Dr. Ciro Mesa Sodium [Moles/Vol] 142 mmol/L Normal 137-145 [facility] Comment on above: Performed By: #### C MP, TSH, LIPID #### [facility] [address] [place] [address] Dr. Crio Mesa Urea nitrogen [Mass/Vol] 10.0 mg/dL Normal 9.0-20.0 [facility] Comment on above: Performed By: #### C MP, TSH, LIPID #### [facility] [address] [address] [address] Ciro Mesa Urea nitrogen/Creatinine [Mass ratio] 10.4 mg/mg Normal [facility] Comment on above: Performed By: #### C MP, TSH, LIPID #### [facility] [address] [address] [address] Ciro Mesa TSHon 05-24-2021 TSH 1.701 uIU/mL Normal 0.470-4.680 [facility] Comment on above: Performed By: #### C MP, TSH, LIPID #### [facility] [address] [address] [address] Ciro Mesa TSH RANGE SEE BELOW Normal [facility] Comment on above: Result Comment: <0.3 4 UIU/ml HYPERTHYROID 0.34-5.60 UIU/ml EUTHYROID >5.60 UIU/ml HYPOTHYROID Performed By: #### C MP, TSH, LIPID #### [facility] [address] [address] [address] Ciro Mesa XR LSPINE MIN 4 [...] by: WILD MILLAN Date: 2021-05-24 16:25 Normal [facility] Consent Formson 03-23-2020 Consent Forms [id number] 10 [id number]#1.0 [id number] [facility] Coding Summaryon 03-21-2020 Coding Summary CODING DATE: 03/21/2020 [facility] STATUS: Home PAYOR: Commercial Insurance APC DESCRIPTION [...] PROC APC STAT DESCRIPTION DOCTOR NAME DATE [id number] Arthroscopy, shoulder, Robert Phelan And [...] Shaikh Revised Date Saved: 03/21/2020 09:34 am [facility] MAGR Intraoperative Recordon 03-15-2020 MAGR Intraoperative Record MAGR Intra-Op Record Summary Primary Physician: Robert Phelan DO Finalized Date/Time: 03/15/20 13:30:29 Pt. Name: JEREMI HERNANDEZ Sr/Sex: 1965 MALE Med Rec #: [id number] Physician: Robert Phelan DO Financial #: [id number] Pt. Type: D Room/Bed: / Admit/Disch: 03/13/20 07:12:00 - 03/13/20 14:05:00 Institution: Case Times MAGR Entry 1 Patient In Room Time 03/13/20 10:36:00 Out Room Time 03/13/20 12:38:00 Anesthesia Start Time 03/13/20 10:36:00 Stop Time 03/13/20 12:38:00 Surgery Start Time 03/13/20 11:04:00 Stop Time 03/13/20 12:30:00 Last Modified By: Laura Tohrnton RN 03/13/20 13:40:40 Case Attendance MAGR Entry 1 Entry 2 Entry 3 Case Attendee Robert Phelan Satya S MD Sauer, Stephanie RN Andrew DO Role Performed Surgeon - Primary Anesthesiologist of Fruit Grower Record Time In 03/13/20 10:36:00 03/13/20 10:36:00 03/13/20 10:36:00 Time Out 03/13/20 12:38:00 03/13/20 12:38:00 03/13/20 12:38:00 Procedure Arthroscopy Arthroscopy Arthroscopy Shoulder(Right) Shoulder(Right) Shoulder(Right) Last Modified By: Laura Thornton RN, Stephanie RN Sauer, Stephanie RN 03/13/20 14:08:44 03/13/20 14:08:44 03/13/20 14:08:44 Entry 4 Entry 5 Case Attendee Shelbi Mcleod CST, Brittany E CSFA Role Performed Washing Machine Mechanic Scrub Personnel Time In 03/13/20 10:36:00 03/13/20 [...] PASSER HEALICOIL SUTURE ANCHOR HEALICOIL SUTURE ANCHOR 22-2225 5.5MM [id number] 4.75MM [id number] Implant Information Implant/Explant 03/13/20 12:00:00 03/13/20 12:00:00 03/13/20 12:00:00 Date/Time Implanted/Explanted Robert Phelan James Huddleston, James By: Foreign ZAMORA Foreign Hudsonw DO Size 5.5MM 4.75MM Programming Coordinator [employer]APP [employer]PHEW [employer]APP [employer] NEPHEW Catalog # [id number] Lot Number [id number] Expiration Date 10/26/22 08/10/22 12/07/22 Serial Number Device Identifier Human Readable KB Machine Readable KB MR Class Implant Usage Data Site Shoulder R Shoulder R Shoulder R Quantity 1 1 1 Reason for Explant Reason Not Retained Explant Disposition Ferry Engineer Sterility External Indicator Result Internal Indicator Results [...] & NEPHEW HEALICOIL SUTURE ANCHOR DILATOR (AWL) [id number] ULTRATAPE 38 [id number] 4.75MM [id number] Implant Information Implant/Explant 03/13/20 12:00:00 03/13/20 12:00:00 03/13/20 12:00:00 Date/Time Implanted/Explanted Robert Phelan James Huddleston, James By: Foreign Hudsonw Foreign DO Size 4.75MM 38 Programming Coordinator [employer] R[employer] RAPP [employer]PHEW Catalog # [id number] Lot Number [id number] Expiration Date 11/04/22 02/10/24 04/21/23 Serial Number Device Identifier Human Readable KB Machine Readable KB MR Class Implant Usage Data Site Shoulder R Shoulder R Shoulder R Quantity 1 1 1 Reason for Explant Reason Not Retained Explant Disposition Ferry Engineer Sterility External Indicator Result Internal Indicator Results Outcome Met (O.30) Yes Yes Yes Last Modified By: Laura Thornton RN, Stephanie RN Sauer, Stephanie RN 03/13/20 14:08:31 03/13/20 14:08:31 03/13/20 14:08:31 Entry 7 Procedure Arthroscopy Shoulder(Right) Implant Action Not Implanted Description [id number] 8.5MM CANNULA [id number] Implant Information Implant/Explant 03/13/20 12:00:00 Date/Time Implanted/Explanted Robert Phelan By: Foreign DO Size 8.5MM Programming Coordinator [id number] Catalog # [id number] Lot Number [id number] Expiration Date 05/07/21 Serial Number Device Identifier Human Readable KB Machine Readable KB MR Class Implant Usage Data Site Shoulder R Quantity 1 Reason for Explant Reason Not Retained Explant Disposition Ferry Engineer Sterility External Indicator Result Internal Indicator Results [...] Unfinalizing 03/15/20 13:26 DOUGIE Modify Pick List [facility] Consent Formson 03-14-2020 Consent Forms [id number] 20 [id number]#1.[address] [place] [address] Discharge Instructionson Discharge Instructions [id number]#1.[address] [place] [address] History and Physicalon 03-14 History and Physical [id number]#1.[address] [place] [address] Medication Managementon 02-15 Medication Management [id number]#1.[address] [place] [address] Outside Recordson 03-14-2020 Outside Records [id number] 20 [id number]#1.[address] [place] [address] Telemetry Stripson 0 Telemetry Strips [id number] 20 [id number]#1.[address] [place] [address] Anesthesia Noteon 03-13-2020 Anesthesia Note Patient: JEREMI HERNANDEZ Sr Age: 54 years Sex: MALE : 1965 Associated Diagnoses: None Author: Nato Goddard MD Preoperative Information Anesthesia history: Patient history: No difficult intubation, No malignant hyperthermia. Family history: No malignant hyperthermia. Review of Systems Respiratory: No shortness of breath, No apnea. Cardiovascular: No known [place], No chest pain. Gastrointestinal Health Status Allergies: Allergic Reactions (All) No known allergies Current medications: Home Medications (3) Active Albuterol (Eqv-ProAir HFA) 90 mcg/inh inhalation aerosol 2 puff(s), PRN, INH, BID albuterol 0.083% inh solution 6 mL, PRN, INH, q6hr cloNIDine 0.1 mg oral tablet 0.1 mg = 1 tab(s), PO, BID Problem list (past medical history): All Problems Smoker / SNOMED CT [id number] / Confirmed Histories Family History: No family history items have been selected or recorded. Procedure history: Finger ([id number]). Comments: 02/25/2020 10:12 Jake Maurice RN right ring finger Bilateral eyes ([id number]). Comments: 02/25/2020 10:13 Jake Maurice RN at [...] ECG interpretation: Within normal limits, PVCs. Plan [place] [employer] Anesthesiologists#(ASA ) physical status classification: Class III. Anesthetic Preoperative Plan Anesthesia: General. , Regional Interscalene Block. Anesthetic plan, risks, benefits, and alternatives discussed with the patient and/or family. Patient verbalized understanding. Informed consent was given. Consent was signed by the patient. [Electronically Signed on: 03/13/2020 08:52 EST] Nato Goddard MD [Verified on: 03/13/2020 08:52 EST] Nato Goddard MD [facility] Coding Summaryon 03-13-2020 Coding Summary CODING DATE: 03/13/2020 [facility] STATUS: Home PAYOR: Commercial Insurance ADMIT DX: [...] Varsha Nassar Date Saved: 03/13/2020 07:36 am [facility] Inpatient Patient Summaryon 03-13-2020 [place] [address] Patient Discharge Instructions Name: JEREMI HERNANDEZ Sr : 1965 Patient Address: [address] [place] [address] Primary Care Provider: Name: Hui Lindo MD After you are discharged if you find you have any questions, please, call [phone] ext [phone] to speak to a nurse. Discharge Diagnosis: [...] alcohol and/or drug addiction problems; contact the [facility] 07/10 Crisis Hotline -Text 4HMVV ak 216026. If you received any narcotics, sedation, or [...] business decisions or sign any legal documents [facility] would like to thank you for allowing us to assist you with your healthcare needs. The following includes patient education materials and information regarding your injury/illness. JEREMI HERNANDEZ Sr has been given the following list of follow-up instructions, prescriptions, and patient education materials: Follow-up Instructions With: Address: When: ADAM DE LOS [place]ANTOS [address] [facility], [facility] [address] [place] [address] Business (1) 03/22/2020 9:15 AM With: Address: When: Hui Guicho [address] [place] [address], [facility] [place] [address] Business (1) Medications During the [...] or concerns, please call the office at [phone] -Follow up as scheduled Viruses or Bacteria [...] for Disease Control and Prevention November 2013 [facility] MAGR Intraoperative Recordon 03-13-2020 MAGR Intraoperative Record MAGR Intra-Op Record Summary Primary Physician: Finalized Date/Time: 03/13/20 10:36:09 Pt. Name: JEREMI HERNANDEZ Sr/Sex: 1965 MALE Med Rec #: [id number] Physician: Robert Phelan DO Financial #: [id number] Pt. Type: D Room/Bed: / Admit/Disch: 03/13/20 [...] Alana Neri RN Role Performed Anesthesiologist of Fruit Grower Fruit Grower Record Time In 03/13/20 10:15:00 03/13/20 10:15:00 [...] Signed By: Maude Diallo RN 03/13/20 10:36 [facility] MAGR PACU Recordon 0 MAGR PACU Record MAGR PACU Record Summary Primary Physician: Robert Phelan DO Finalized Date/Time: 03/13/20 13:06:43 Pt. Name: JEREMI HERNANDEZ Sr/Sex: 1965 MALE Med Rec #: [id number] Physician: Robert Phelan DO Financial #: [id number] Pt. Type: D Room/Bed: / Admit/Disch: 03/13/20 [...] to room 208 and report given to [facility] Finalized By: Kesha La RN Document Signatures Signed By: Kesha La RN 03/13/20 13:06 [facility] MAGR Postoperative Recordon 03-13-2020 MAGR Postoperative Record MAGR Phase II Record Summary Primary Physician: Robert Phelan DO Finalized Date/Time: 03/13/20 14:14:57 Pt. Name: JEREMI HERNANDEZ Sr/Sex: 1965 MALE Med Rec #: [id number] Physician: Robert Phelan DO Financial #: [id number] Pt. Type: D Room/Bed: / Admit/Disch: 03/13/20 [...] Signed By: Kesha La RN 03/13/20 14:14 [facility] Preoperative Recordon 1 05-14-2019 [facility] Preoperative Record [facility] Pre-Op Record Summary Primary Physician: Robert Phelan DO Finalized Date/Time: 03/13/20 13:03:07 Pt. Name: JEREMI HERNANDEZ Sr./Sex: 1965 MALE Med Rec #: [id number] Physician: Robert Phelan DO Financial #: [id number] Pt. Type: D Room/Bed: / Admit/Disch: 03/13/20 [...] By: Jelena Diehl RN 03/13/20 13:03 Normal [facility] Operative Report - Surgeon/P kelleelisbeth 03-13-2020 Operative [...] along the medial row the footprint. ( [employer]) helacoil suture anchors. These had been loaded [...] on: 03/13/2020 13:53 EST] Robert Phelan DO [facility] Patient Handouton 03-13-[address] [...] or concerns, please call the office at [phone] -Follow up as scheduled [facility] 2019 Novel Coronavirus (CoVI D-19), ISAAC LCon 03-10-2020 SARS-CoV-2, ISAAC (COVID-19) LC Not Detected Not Detected [facility] Comment on above: Order Comment: (202) [id number] Result Comment: This nucleic acid amplification test was developed and its performance characteristics determined by [employer]. Nucleic acid amplification tests include PCR and [...] detected) result in this assay. Performed At: [facility] [address] [facility] [place] [id number] Salina Lopez MD Ph:[phone] Performed By: #### 6 [id number] ####[place] [address] Progress Note - Nurseon 02-15 Progress Note [...] on: 03/08/2020 11:45 EST] Ashlee Suero RN [facility] Progress Note - Nurseon 12-2 Progress [...] on: 03/06/2020 12:36 EST] Jelena Diehl RN [facility] Progress Note - Nurseon -1 Progress Note - Nurse Dr Jay reviews PAT information and testing results. Requested the PCP office note and questioned if any old EKG's from PCP. Will Call patient's PCP today. [Electronically Signed on: 02/29/2020 08:23 EST] Jelena Diehl RN [Verified on: 02/29/2020 08:23 EST] Jelena Diehl RN [facility] Coding Summaryon 02-28-2020 Coding Summary CODING DATE: 02/28/2020 [facility] STATUS: Home PAYOR: Commercial Insurance [employer] DESCRIPTION [...] in slightly different terminology. Coded By: Jennifer Bower Date Saved: 02/28/2020 09:15 am [facility] Vital Signs Date Time Vital Sign Value Performing Clinician Facility 12-23-2023 13:41-0400 Body mass index (BMI) [Ratio] 35.4 kg/m2 [facility] 12-23-2023 13:41-0400 Diastolic blood pressure 70 mm[Hg] [facility] 12-23-2023 13:41-0400 Heart rate 78 /min [facility] 12-23-2023 13:41-0400 Respiratory rate 18 /min [facility] 12-23-2023 13:41-0400 SaO2% (BldA) [Mass fraction] 97 % [facility] 12-23-2023 13:41-0400 Systolic blood pressure 158 mm[Hg] [facility] 12-23-2023 11:43-0400 Body height 175.26 cm [facility] 12-23-2023 11:43-0400 Body weight 109.03 kg [facility] 11-12-2022 09:45-0400 Body height 175.26 cm Hui Lindo Other [facility] Other 11-12-2022 09:45-0400 Body mass index (BMI) [Ratio] 35.29 kg/m2 Hui Lindo Other [facility] Other 11-12-2022 09:45-0400 Body temperature 97.9 [degF] Hui Lindo Other [facility] Other 11-12-2022 09:45-0400 Body weight 108.41 kg Hui Lindo Other [facility] Other 11-12-2022 09:45-0400 Diastolic blood pressure 100 mm[Hg] Hui Lindo Other [facility] Other 11-12-2022 09:45-0400 Systolic blood pressure 163 mm[Hg] Hui Lindo Other [facility] Other Encounters Encounter Date Encounter Type Care Provider Facility Start: 12-23-2023 End: 12-23-2023 ambulatory [facility] Work Phone: Start: 12-23-2023 End: 12-23-2023 Patient encounter procedure [facility] Work Phone: Start: 03-28-2023 End: 03-28-2023 ambulatory Hui Lindo Other [facility] Other Start: 03-28-2023 Telephone encounter Hui Lindo [facility] Start: 03-18-2023 End: 03-18-2023 ambulatory Hui Lindo Other [facility] Other Start: 03-18-2023 Telephone encounter Hui Lindo [facility] Start: 11-12-2022 End: 11-12-2022 ambulatory Hui Lindo Other [facility] Other Start: 11-12-2022 Office outpatient vi sit 15 minutes Hui Lindo [facility] Start: 10-01-2022 End: 10-01-2022 ambulatory Hui Lindo Other [facility] Other Start: 10-01-2022 Telephone encounter Hui Lindo [facility] Start: 09-23-2022 End: 09-23-2022 ambulatory Hui Lindo Other [facility] Other Start: 09-23-2022 Telephone encounter Hui Lindo [facility] Start: 09-04-2022 End: 09-04-2022 ambulatory Hui Lindo Other [facility] Other Start: 09-04-2022 Telephone encounter Hui Lindo [facility] Start: 06-07-2022 (Televisit) Televisit Hui Lindo [facility] Start: 06-07-2022 End: 06-07-2022 ambulatory Hui Lindo Other [facility] Other Start: 06-07-2022 Encounter for genera l adult medical examination without abnormal findings Hui Lindo [facility] Start: 05-25-2021 Encounter for genera l adult medical examination without abnormal findings DR HUI LINDO [facility] Start: 05-24-2021 End: 05-25-[address] HUI LINDO Facility:[facility] Start: 05-24-2021 End: 05-25-2021 Encounter for general adult medical examination without abnormal findings DR HUI LINDO Facility:[facility] Procedures Date Procedure Procedure Detail Performing Clinician Start: 05-24-[address] HUI LINDO Comment on above: Performed By: #### P [facility] #### [facility] [address] [place] [address] Dr. Ciro Mesa Plan of Treatment Date Care Activity Detail Author Start: 12-23-2023 Patient referral [facility] Work Phone: Comprehensive metabo lic 2000 panel - Serum or Plasma [facility] Patient referral [facility] Work Phone: XR Hip - left 2 Views [facility] XR Lumbar spine 2 or 3 Views [facility] Immunizations Immunization Date Immunization Notes Care Provider Fa cility 01-05-2019 influenza virus vaccine, split virus (incl. purified surface antigen) Hui Guicho Other [facility] Other 01-05-2019 influenza virus vaccine, unspecified formulation [facility] Payers Date Payer Category Payer Unknown [id number] 1965 Unknown [id number] [facility] [id number] Social History Date Type Detail Facility Sex Assigned At [facility] Other Start: 1965 Sex Assigned At Male F [facility] Hospital Discharge instructions 12-23-2023 Note Date & Type Note Facility 12-23-2023 Hospital Discharg e instructions Ambulatory OrdersReferral to Orthopedics Time Frame: 12/23/23, Location: None Selected [facility] Work Phone: Evaluation note 11-12-2022 Note Date [...] maxillary sinusitis (ICD-10 - J01.01) Finish antibiotic [facility] Other Evaluation note 06-07-2022 Note Date & [...] PSA (prostate specific antigen) (ICD-10 - Z12.5) [facility] Other Evaluation note Note Date & Type Note Facility Evaluation note No Information [facility] Other Evaluation note Note Date & Type Note Facility Evaluation note Diagnosis Onset Date Essential hypertension acute Left hip pain acute Lumbar pain with radiation down left leg acute Screening PSA (prostate specific antigen) acute [facility] Work Phone: History general Narrative - Reported Note Date & Type Note Facility History general Narrative - Reported Type Medical History Bronchitis Medical History LUMBAR PAIN WITH RADIATION DOWN LEFT LEG Medical History Back pain, thoracic Medical History Anxiety and depression Medical History Essential hypertension [facility] Other History general Narrative - Reported Note [...] no changes required, Problem Status : Active, [facility] Other Summary Purpose Family History Relationship Condition Age at Onset Recorded Date/T yue father Hypertension Unknown Family history of lung cancer Unknown Heart disease Unknown Malignant neoplasm Unknown History of stroke Unknown Advance Directives Advance Directive Response Recorded Date/ Time Advance Directives No December 18, 2023 4:05pm Hospital Course Note [facility] SURGERY Clinical Discharge Summary PERSON INFORMATION Name JEREMI HERNANDEZ Sr Age 54 Years 1965 Sex MALE Language Monegasque PCP Guicho MEDINA, Hui Potts Marital Status Med Service Ambulatory Surgery Acct# Arrival 03/13/2020 07:12:00 Visit Reason SURGERY - RIGHT SHOULDER SCOPE WITH ROTATOR CUFF REPAIR - RAPP AND NEPHEW IMPLANT Acuity LOS 024 05:01 Address: [address] [place] [address] Comment: PROVIDER INFORMATION VITALS INFORMATION Vital Sign [...] section and content) DATE CREATED AUTHOR 03/24/2020 [facility] DATE CREATED AUTHOR AUTHOR'S ORGANIZ ATION 05/27/2021 [facility] REASON FOR VISIT (unrecogniz ed [...] BE BASED ON THE PRIMARY CLINICAL RECORDS. [facility] provides no warranty or guarantee of the accuracy or completeness of information in this document.
[2024-10-18 09:21] VITALS: BP 160/99; PULSE 80; TEMP 37; O2SAT 96
[2024-10-18 10:06] VITALS: BP 129/93; BP 133/94; PULSE 68; PULSE 69; O2SAT 96; O2SAT 97
[2024-10-18] MEDS: 0.9 % SODIUM CHLORIDE 10 ML SYRINGE - SALINE FLUSH INJ (10:11)
[2024-10-18] MEDS: BUPIVACAINE HCL 0.25% PF 25 MG/10 ML VIAL INJ (10:12)
[2024-10-18] MEDS: IOHEXOL 240 MG/ML - 10 ML VIAL 24 MG INJ (10:12)
[2024-10-18] MEDS: LIDOCAINE HCL 2% 400 MG/20 ML MDV 3 ML INJ (10:12)
[2024-10-18] MEDS: METHYLPREDNISOLONE ACETATE 80 MG/ML VIAL INJ (10:12)
--- NOTE | 2024-10-18 10:13 | P.ON_ITS ---
Date of procedure: 10/18/24 Pre-op diagnosis: Pain due to lumbar stenosis with neurogenic claudication Post-op diagnosis: same as pre-op Procedure: Procedure: Left L4-5, l5-S1 transforaminal epidural steroid injection Medications: Bupivacaine 0.25% 2cc, lidocaine 2% 1cc, depomedrol 80mg The patient was seen and examined in the preoperative holding area.? Informed consent was obtained and placed on the chart.? Patient was brought to the medical procedure unit and placed in the prone position where a timeout was completed verifying the correct patient, procedure site, position, and planned special equipment using sterile aseptic technique.? Under direct fluoroscopic visualization a 25-gauge Quincke tipped spinal needle was advanced to the designated neural foramen where contrast dye was injected to show adequate spread.? The needle was inserted at level left L4-5. There was no evidence of vascular or adverse uptake.? Epidural spread was appreciated.? The above- mentioned injectate was then placed in a 1.5 mL aliquot preceded by negative aspiration.? The needle was removed. The needle was inserted and the procedure repeated at level left L5-S1.? The surgery site was covered.? Patient was taken to the postprocedural recovery area and monitored for an appropriate length of time before found suitable for discharge in the accompaniment of a responsible adult. Anesthesia: Local Surgeon: Rambo Gupta Pathology: none sent Condition: stable Disposition: no change
== END 2024-10-18 10:14 | disposition home or self-care (01) ==
LOC: SURGOUT 09:01
PROVIDERS: PCP Family Medicine; Visit Provider Anesthesiology
DX: M48.062 Spinal stenosis, lumbar region with neurogenic claudication (principal); M54.50 Low back pain, unspecified
CPT/HCPCS: 64483; 64484; J0665; J1010; Q9966

== ENCOUNTER 2024-11-01 13:56 | Outpatient (OUT) | payer BC, SELFPAY ==
--- OUTSIDE RECORDS SUMMARY | 2024-11-01 13:58 | XMS_ITS | Patient Health Record ---
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
--- OUTSIDE RECORDS SUMMARY | 2024-11-01 13:58 | XMS_ITS | Clinical Summary ---
Author Organization [facility] Address [address] [place] [address] Care Team Providers Care Sports Intern Name Role Phone Unavailable Primary Care Provider [...] of Treatment Not on file Insurance [facility]
--- OUTSIDE RECORDS SUMMARY | 2024-11-01 13:58 | XMS_ITS | Patient Health Record ---
Author Organization [facility] Address [address] [place] [address] Care Team Providers Care Used Car Sales Supervisor Name Role Phone Hui Kulkarni M.D. Primary Care Provider Unavail able Hubert Bernal Unavailable [phone] Salazar Claudia Unavailable [phone] Reason For Referral Reason LAMONTE...........PLEASE OBTAIN AUTHORIZATION FOR MRI LUMBAR Diagnosis 1 Lumbar pain (M54.50) Referral Organization [facility] Referring Provider First Name Hubert Referring Provider Last Name Dolores Referring Provider Speciality Orthopedic Surgery [facility] Referred Address [place], [place], Procedure 1 MRI Lumbar Spine w/o Dye (03787) General Notes Isabella Maddox 2023 11:25:48 AM [...] Problem Status W/U Status Risk Notes Problem [id number] Spinal stenosis, lumbosacral region (M48.07) Active confirmed Problem [id number] Radiculopathy, lumbosacral region (M54.17) Active confirmed Vital Signs Height 5'8 in 12/29/2023 Weight 240 lbs 12/29/2023 BMI 36.49 12/29/2023 Encounters Encounter Location Date Provider Diagnosis [place] [address] [place] [address] 12/29/2023 Hubert [place] Lumbar pain M54.50 [address] [place] [place] [address] 02/20/2024 Claudia [facility] Spinal stenosis, lumbosacral region M48.07 [...] Lumbar spine 2v flex and ext - 11545 08/2023 Insurance Providers Payer Name Payer Address Payer Phone Subscriber Number Group Number Insured Name Patient Relationship to Insured Coverage Start Date Coverage End Date Barbara [place] [address] [place] [address] [id number] YENNI HERNANDEZ Self - patient is the insured Medical (General) History Medical History History ICD Code High Blood Pressure Bronchitis Stomach ulcers Gastric Reflux Anxiety Depression Seen a Psychiatrist Surgical History Surgery Date(Month/Year) Foreign body excision 2007 ROTATOR CUFF REPAIR 02/2020
--- OUTSIDE RECORDS SUMMARY | 2024-11-01 14:42 | XMS_ITS | CCD ---
Author Organization [facility] Care Team Providers Care Fence Setter Name Role Phone DR HUI LINDO Admitting Unavailable GUICHO, DR HUI Potts Attending Unavailable DR HUI LINDO Primary Care Unavailable MONTY, DR WILD Watt Consulting Unavailable GUICHO, DR HUI Potts Consulting Unavailable Hui Lindo Alonso MEDINA, Rambo Chapman Attending Unavailable Allergies Allergy Classification Reported Allergen(s) Allergy Type Date of Onset Reaction(s) Facility (8 sources) Esomeprazole Drug Allergy 12-23-19 24 Unknown, Diarrhea [facility] (8 sources) gabapentin Drug Allergy 12-23-19 24 Unknown, Unknown Reaction [facility] (7 sources) Ibuprofen Drug Allergy Unknown [facility] Other (3 sources) Ibuprofen Drug Allergy 02-18-20 14 Unknown [facility] Other (3 sources) NexIUM *ULCER DRUGS/ANTISPASMO DICS/ANTICHOLINE RGIC Propensity to adverse reactions 02-18-20 14 Unknown [facility] Other Medications Current Medications Medication Drug Class(es) [...] Drug Class(es) Dates Sig (Normalized) Sig (Original) [id number] 200 actuat albuterol 0.09 mg/actuat metered dose [...] 05-24-2021 BASO # 0.0 103/ul Normal 0.0-0.1 [facility] Comment on above: Performed By: #### C BC #### [facility] [address] [place] [address] Dr. Ciro Mesa Basophils/100 WBC (Bld) 0.5 % Normal 0.2-2.0 [facility] Comment on above: Performed By: #### C BC #### [facility] [address] [place] [address] Dr. Ciro Mesa EO # 0.2 103/ul Normal 0.0-0.7 [facility] Comment on above: Performed By: #### C BC #### [facility] [address] [place] [address] Dr. Ciro Mesa Eosinophils/100 WBC (Bld) 2.4 % Normal 0.9-7.0 [facility] Comment on above: Performed By: #### C BC #### [facility] [address] [place] [address] Dr. Ciro Mesa Erythrocyte distribution width (RBC) [Ratio] 13.1 % Normal 11.0-15.0 [facility] Comment on above: Performed By: #### C BC #### [facility] [address] [place] [address] Dr. Ciro Mesa Hematocrit (Bld) [Volume fraction] 48.6 % Normal 42.0-54.0 [facility] Comment on above: Performed By: #### C BC #### [facility] [address] [place] [address] Dr. Ciro Mesa Hemoglobin (Bld) [Mass/Vol] 16.5 g/dL Normal 14.0-18.0 [facility] Comment on above: Performed By: #### C BC #### [facility] [address] [place] [address] Dr. Ciro Mesa IG # 0.03 10e3/ul Normal 0.00-0.03 [facility] Comment on above: Performed By: #### C BC #### [facility] [address] [place] [address] Dr. Ciro Mesa IG % 0.4 % Normal 0.0-0.5 [facility] Comment on above: Performed By: #### C BC #### [facility] [address] [place] [address] Dr. Ciro Mesa LYMPH # 2.7 103/ul Normal 1.2-3.8 [facility] Comment on above: Performed By: #### C BC #### [facility] [address] [place] [address] Dr. Ciro Mesa Lymphocytes/100 WBC (Bld) 32.2 % Normal 20.5-60.0 [facility] Comment on above: Performed By: #### C BC #### [facility] [address] [place] [address] Dr. Ciro Mesa MANUAL DIFF REQ NO Normal [facility] Comment on above: Performed By: #### C BC #### [facility] [address] [place] [address] Dr. Ciro Mesa MCH (RBC) [Entitic mass] 32.1 pg Normal 25.9-34.0 [facility] Comment on above: Performed By: #### C BC #### [facility] [address] [place] [address] Dr. Ciro Mesa MCHC (RBC) [Mass/Vol] 34.0 g/dL Normal 29.9-35.2 [facility] Comment on above: Performed By: #### C BC #### [facility] [address] [place] [address] Dr. Ciro Mesa MCV (RBC) [Entitic vol] 94.6 fL Critically high 80.0-94.0 [facility] Comment on above: Performed By: #### C BC #### [facility] [address] [place] [address] Dr. Ciro Mesa MONO # 0.7 103/ul Normal 0.3-0.8 [facility] Comment on above: Performed By: #### C BC #### [facility] [address] [place] [address] Dr. Ciro Mesa Monocytes/100 WBC (Bld) 8.2 % Normal 1.7-12.0 [facility] Comment on above: Performed By: #### C BC #### [facility] [address] [place] [address] Dr. Ciro Mesa NEUT # 4.7 103/ul Normal 1.4-6.5 [facility] Comment on above: Performed By: #### C BC #### [facility] [address] [place] [address] Dr. Ciro Mesa Neutrophils/100 WBC (Bld) 56.3 % Normal 43.0-75.0 [facility] Comment on above: Performed By: #### C BC #### [facility] [address] [place] [address] Dr. Ciro Mesa Platelet mean volume (Bld) [Entitic vol] 9.1 fL Critically low 9.5-13.5 [facility] Comment on above: Performed By: #### C BC #### [facility] [address] [place] [address] Dr. Ciro Mesa PLT 257 103/ul Normal 150-450 [facility] Comment on above: Performed By: #### C BC #### [facility] [address] [place] [address] Dr. Ciro Mesa RBC 5.14 106/ul Normal 4.70-6.10 [facility] Comment on above: Performed By: #### C BC #### [facility] [address] [place] [address] Dr. Ciro Mesa WBC 8.3 103/ul Normal 4.0-11.0 [facility] Comment on above: Performed By: #### C BC #### [facility] [address] [place] [address] Dr. Ciro Mesa GLYCOHEMOGLOBIN A1Con 2021 ADA RECOMMENDATION ADA THERAPEUTIC TARG ET 6.0 - 7.0 ACTION SUGGESTED > 7.0 Normal [facility] Comment on above: Performed By: #### A 1C #### [facility] [address] [place] [address] Dr. Ciro Mesa Glucose [Mass/Vol] 120 mg/dL Normal [facility] Comment on above: Performed By: #### A 1C #### [facility] [address] [place] [address] Dr. Ciro Mesa HbA1c (Bld) [Mass fraction] 5.8 % Normal <=6.0 [facility] Comment on above: Performed By: #### A 1C #### [facility] [address] [place] [address] Dr. Ciro Mesa LIPID PROFILEon 05-24-2021 CHOL-HDL RATIO NORM SEE BELOW Normal [facility] Comment on above: Result Comment: 3.3 - 4.4 LOW RISK 4.4 - 7.1 AVERAGE RISK 7.1 - 11.0 MODERATE RISK >11.0 HIGH RISK Performed By: #### C MP, TSH, LIPID #### [facility] [address] [place] [address] Dr. Ciro Mesa Cholesterol [Mass/Vol] 218 mg/dL Critically high <=200 [facility] Comment on above: Performed By: #### C MP, TSH, LIPID #### [facility] [address] [place] [address] Dr. Ciro Mesa Cholesterol in HDL [Mass/Vol] 40 mg/dL Normal [facility] Comment on above: Performed By: #### C MP, TSH, LIPID #### [facility] [address] [place] [address] Dr. Ciro Mesa Cholesterol in LDL [Mass/Vol] 148.2 mg/dL Normal [facility] Comment on above: Performed By: #### C MP, TSH, LIPID #### [facility] [address] [place] [address] Dr. Ciro Mesa Cholesterol.total/Ch olesterol in HDL [Mass ratio] 5.5 {ratio} Normal [facility] Comment on above: Performed By: #### C MP, TSH, LIPID #### [facility] [address] [place] [address] Dr. Ciro Mesa HDL NORMAL > or = 60 mg/dl - LO W CARDIOVASCULAR RISK <40 mg/dl - HIGH CARDIOVASCULAR RISK Normal [facility] Comment on above: Performed By: #### C MP, TSH, LIPID #### [facility] [address] [address] [address] Ciro Mesa LDL CALC NORMAL SEE BELOW Normal [facility] Comment on above: Result Comment: <100 mg/dl OPTIMAL 100 - 129 mg/dl NEAR OR ABOVE OPTIMAL 130 - 159 mg/dl BORDERLINE HIGH 160 - 189 mg/dl HIGH >190 mg/dl VERY HIGH Performed By: #### C MP, TSH, LIPID #### [facility] [address] [place] [address] Dr. Ciro Mesa Triglyceride [Mass/Vol] 149 mg/dL Normal <=150 [facility] Comment on above: Performed By: #### C MP, TSH, LIPID #### [facility] [address] [place] [address] Dr. Ciro Mesa VLDL CALC 29.8 mg/dL Normal [facility] Comment on above: Performed By: #### C MP, TSH, LIPID #### [facility] [address] [place] [address] Dr. Ciro Mesa PROF 14(COMP METB)on 022 Albumin [Mass/Vol] 3.9 g/dL Normal 3.5-5.0 [facility] Comment on above: Performed By: #### C MP, TSH, LIPID #### [facility] [address] [place] [address] Dr. Ciro Mesa Albumin/Globulin [Mass ratio] 0.9 {ratio} Normal [facility] Comment on above: Performed By: #### C MP, TSH, LIPID #### [facility] [address] [place] [address] Dr. Ciro Mesa ALP [Catalytic activity/Vol] 79 U/L Normal 38-126 [facility] Comment on above: Performed By: #### C MP, TSH, LIPID #### [facility] [address] [address] [address] Ciro Mesa ALT [Catalytic activity/Vol] 35 U/L Normal 21-72 [facility] Comment on above: Performed By: #### C MP, TSH, LIPID #### [facility] [address] [address] [address] Ciro Mesa Anion gap [Moles/Vol] 10.3 mmol/L Normal [facility] Comment on above: Performed By: #### C MP, TSH, LIPID #### [facility] [address] [place] [address] Dr. Ciro Mesa AST [Catalytic activity/Vol] 21 U/L Normal 17-59 [facility] Comment on above: Performed By: #### C MP, TSH, LIPID #### [facility] [address] [address] [address] Ciro Mesa Bilirubin [Mass/Vol] 0.6 mg/dL Normal 0.2-1.3 [facility] Comment on above: Performed By: #### C MP, TSH, LIPID #### [facility] [address] [place] [address] Dr. Ciro Mesa Calcium [Mass/Vol] 8.5 mg/dL Normal 8.4-10.2 [facility] Comment on above: Performed By: #### C MP, TSH, LIPID #### [facility] [address] [place] [address] Dr. Ciro Mesa Chloride [Moles/Vol] 105 mmol/L Normal 98-107 [facility] Comment on above: Performed By: #### C MP, TSH, LIPID #### [facility] [address] [place] [address] Dr. Ciro Mesa CO2 [Moles/Vol] 30.5 mmol/L Critically high 22.0-30.0 [facility] Comment on above: Performed By: #### C MP, TSH, LIPID #### [facility] [address] [address] [address] Ciro Mesa Creatinine [Mass/Vol] 0.96 mg/dL Normal 0.66-1.25 [facility] Comment on above: Performed By: #### C MP, TSH, LIPID #### [facility] [address] [address] [address] Ciro Mesa EGFR-AF [place]I >60 Normal >=60 [facility] Comment on above: Performed By: #### C MP, TSH, LIPID #### [facility] [address] [address] [address] Ciro Mesa EGFR-NON AF [place]I >60 Normal >=60 [facility] Comment on above: Performed By: #### C MP, TSH, LIPID #### [facility] [address] [address] [address] Ciro Mesa Globulin (S) [Mass/Vol] 4.3 g/dL Normal [facility] Comment on above: Performed By: #### C MP, TSH, LIPID #### [facility] [address] [address] [address] Ciro Mesa Glucose [Mass/Vol] 131 mg/dL Critically high 74-106 [facility] Comment on above: Performed By: #### C MP, TSH, LIPID #### [facility] [address] [address] [address] Ciro Mesa Potassium [Moles/Vol] 3.8 mmol/L Normal 3.4-5.0 [facility] Comment on above: Performed By: #### C MP, TSH, LIPID #### [facility] [address] [address] [address] Ciro Mesa Protein [Mass/Vol] 8.2 g/dL Normal 6.1-8.2 [facility] Comment on above: Performed By: #### C MP, TSH, LIPID #### [facility] [address] [address] [address] Ciro Mesa Sodium [Moles/Vol] 142 mmol/L Normal 137-145 [facility] Comment on above: Performed By: #### C MP, TSH, LIPID #### [facility] [address] [address] [address] Ciro Mesa Urea nitrogen [Mass/Vol] 10.0 mg/dL Normal 9.0-20.0 [facility] Comment on above: Performed By: #### C MP, TSH, LIPID #### [facility] [address] [address] [address] Ciro Mesa Urea nitrogen/Creatinine [Mass ratio] 10.4 mg/mg Normal [facility] Comment on above: Performed By: #### C MP, TSH, LIPID #### [facility] [address] [address] [address] Ciro Mesa TSHon 05-24-2021 TSH 1.701 uIU/mL Normal 0.470-4.680 [facility] Comment on above: Performed By: #### C MP, TSH, LIPID #### [facility] [address] [address] [address] Ciro Mesa TSH RANGE SEE BELOW Normal [facility] Comment on above: Result Comment: <0.3 4 UIU/ml HYPERTHYROID 0.34-5.60 UIU/ml EUTHYROID >5.60 UIU/ml HYPOTHYROID Performed By: #### C MP, TSH, LIPID #### [facility] [address] [address] [address] Ciro Mesa XR LSPINE MIN 4 [...] by: WILD MILLAN Date: 2021-05-24 16:25 Normal [facility] Consent Formson 03-23-2020 Consent Forms [id number]#1.0 [id number] [facility] Coding Summaryon 03-21-2020 Coding Summary CODING DATE: 03/21/2020 [facility] STATUS: Home PAYOR: Commercial Insurance APC [...] PROC APC STAT DESCRIPTION DOCTOR NAME DATE [id number] Arthroscopy, shoulder, Robert Phelan And 03/13/2020 [...] Shaikh Revised Date Saved: 03/21/2020 09:34 am [facility] MAGR Intraoperative Recordon 03-15-2020 MAGR Intraoperative Record MAGR Intra-Op Record Summary Primary Physician: Robert Phelan DO Finalized Date/Time: 03/15/20 13:30:29 Pt. Name: JEREMI HERNANDEZ Sr/Sex: 1965 MALE Med Rec #: [id number] Physician: Robret Phelan DO Financial #: [id number] Pt. Type: D Room/Bed: / Admit/Disch: 03/13/20 [...] Role Performed Surgeon - Primary Anesthesiologist of Advisory Application Developer Record Time In 03/13/20 10:36:00 03/13/20 10:36:00 03/13/20 10:36:00 Time Out 03/13/20 12:38:00 03/13/20 12:38:00 03/13/20 12:38:00 Procedure Arthroscopy Arthroscopy Arthroscopy Shoulder(Right) Shoulder(Right) Shoulder(Right) Last Modified By: Laura Thornton RN, Stephanie RN Sauer, Stephanie RN 03/13/20 14:08:44 03/13/20 14:08:44 03/13/20 14:08:44 Entry 4 Entry 5 Case Attendee Shelbi Mcleod CST, Brittany E CSFA Role Performed Relief Worker Scrub Personnel Time In 03/13/20 10:36:00 03/13/20 10:36:00 Time Out 03/13/20 12:38:00 03/13/20 12:38:00 Procedure Arthroscopy Arthroscopy Shoulder(Right) Shoulder(Right) Last Modified By: Laura Thornton RN, Stephanie RN 03/13/20 14:08:44 03/13/20 14:08:44 General Comments: NEEL SERPUMA [employer] REP Surgical Procedures MAGR Pre-Care Text: A.20 Verifies operative procedure, surgical site, and laterality Im.150 Develops individualized plan of care Entry 1 Procedure Arthroscopy Shoulder Primary Procedure Yes Primary Surgeon Robert Phelan Right Foreign ZAMORA Surgeon Comment RIGHT SHOULDER [...] PASSER HEALICOIL SUTURE ANCHOR HEALICOIL SUTURE ANCHOR 22-4038 5.5MM [id number] 4.75MM [id number] Implant Information Implant/Explant 03/13/20 12:00:00 03/13/20 12:00:00 03/13/20 12:00:00 Date/Time Implanted/Explanted Robert Phelan James Huddleston, James By: Foreign Hudsoncharles Hudsonw DO Size 5.5MM 4.75MM Bench Technician [employer] Catalog # [id number] Lot Number [id number] Expiration Date 10/26/22 08/10/22 12/07/22 Serial Number Device Identifier Human Readable KB Machine Readable KB MR Class Implant Usage Data Site Shoulder R Shoulder R Shoulder R Quantity 1 1 1 Reason for Explant Reason Not Retained Explant Disposition Civil Preparedness Coordinator Sterility External Indicator Result Internal Indicator Results [...] & NEPHEW HEALICOIL SUTURE ANCHOR DILATOR (AWL) [id number] ULTRATAPE 38 [id number] 4.75MM [id number] Implant Information Implant/Explant 03/13/20 12:00:00 03/13/20 12:00:00 03/13/20 12:00:00 Date/Time Implanted/Explanted Robert Phelan James Huddleston, James By: Foreign Davey DO Foreign DO Size 4.75MM 38 Bench Technician [employer]W [employer] Catalog # [id number] Lot Number [id number] Expiration Date 11/04/22 02/10/24 04/21/23 Serial Number Device Identifier Human Readable KB Machine Readable KB MR Class Implant Usage Data Site Shoulder R Shoulder R Shoulder R Quantity 1 1 1 Reason for Explant Reason Not Retained Explant Disposition Civil Preparedness Coordinator Sterility External Indicator Result Internal Indicator Results Outcome Met (O.30) Yes Yes Yes Last Modified By: Laura Thornton RN, Stephanie RN Sauer, Stephanie RN 03/13/20 14:08:31 03/13/20 14:08:31 03/13/20 14:08:31 Entry 7 Procedure Arthroscopy Shoulder(Right) Implant Action Not Implanted Description [id number] 8.5MM CANNULA [id number] Implant Information Implant/Explant 03/13/20 12:00:00 Date/Time Implanted/Explanted ZhaneRobert By: Foreign ZAMORA Size 8.5MM Bench Technician [id number] Catalog # [id number] Lot Number [id number] Expiration Date 05/07/21 Serial Number Device Identifier Human Readable KB Machine Readable KB MR Class Implant Usage Data Site Shoulder R Quantity 1 Reason for Explant Reason Not Retained Explant Disposition Civil Preparedness Coordinator Sterility External Indicator Result Internal Indicator Results [...] Angelique Josue RN Document Signatures Signed By: Lauar Thornton RN 03/13/20 14:09 Angelique Josue RN 03/15/20 13:30 Unfinalized History Date/Time Username Reason for Unfinalizing Freetext Reason for Unfinalizing 03/15/20 13:26 MHBLONG Modify [facility] List [facility] Consent Formson 03-14-2020 Consent Forms [id number] 20 [id number]#1.[address] [place] [address] Discharge Instructionson Discharge Instructions [id number]#1.[address] [place] [address] History and Physicalon 03-14 History and Physical [id number]#1.[address] [place] [address] Medication Managementon 02-15 Medication Management [id number]#1.[address] [place] [address] Outside Recordson 03-14-2020 Outside Records [id number]#1.[address] [place] [address] Telemetry Stripson 0 Telemetry Strips [id number] 20 [id number]#1.[address] [place] [address] Anesthesia Noteon 03-13-2020 Anesthesia Note Patient: JEREMI HERNANDEZ Sr Age: 54 years Sex: MALE : 1965 Associated Diagnoses: None Author: Nato Goddard MD Preoperative Information Anesthesia history: Patient history: No difficult intubation, No malignant hyperthermia. Family history: No malignant hyperthermia. Review of Systems Respiratory: No shortness of breath, No apnea. Cardiovascular: No known NC, No chest pain. Gastrointestinal Health Status Allergies: Allergic Reactions (All) No known allergies Current medications: Home Medications (3) Active Albuterol (Eqv-ProAir HFA) 90 mcg/inh inhalation aerosol 2 puff(s), PRN, INH, BID albuterol 0.083% inh solution 6 mL, PRN, INH, q6hr cloNIDine 0.1 mg oral tablet 0.1 mg = 1 tab(s), PO, BID Problem list (past medical history): All Problems Smoker / SNOMED CT [id number] / Confirmed Histories Family History: No family history items have been selected or recorded. Procedure history: Finger ([id number]). Comments: 02/25/2020 10:12 Jake Maurice RN right ring finger Bilateral eyes ([id number]). Comments: 02/25/2020 10:13 Jake Maurice RN at [...] ECG interpretation: Within normal limits, PVCs. Plan [place] [employer]esthesiologists#(ASA ) physical status classification: Class III. Anesthetic Preoperative Plan Anesthesia: General. , Regional Interscalene Block. Anesthetic plan, risks, benefits, and alternatives discussed with the patient and/or family. Patient verbalized understanding. Informed consent was given. Consent was signed by the patient. [Electronically Signed on: 03/13/2020 08:52 EST] Nato Goddard MD [Verified on: 03/13/2020 08:52 EST] Nato Goddard MD [facility] Coding Summaryon 03-13-2020 Coding Summary CODING DATE: 03/13/2020 [facility] STATUS: Home PAYOR: Commercial Insurance ADMIT [...] Varsha Nassar Date Saved: 03/13/2020 07:36 am [facility] Inpatient Patient Summaryon 03-13-2020 [place]patient [place] [address] Patient Discharge Instructions Name: MARY Lynn JEREMI Vance : 1965 Patient Address: [address] [place] [address] Primary Care Provider: Name: Hui Lindo MD After you are discharged if you find you have any questions, please, call [phone] ext [phone] to speak to a nurse. Discharge Diagnosis: [...] alcohol and/or drug addiction problems; contact the [facility] 07/10 Crisis Hotline -Text 4HOPE to 076321. If you received any narcotics, sedation, or [...] business decisions or sign any legal documents [facility] would like to thank you for allowing us to assist you with your healthcare needs. The following includes patient education materials and information regarding your injury/illness. JEREMI HERNANDEZ Sr has been given the following list of follow-up instructions, prescriptions, and patient education materials: Follow-up Instructions With: Address: When: ADAM DE LOS SANTOS [address], [address] [place] [address] Business (1) 03/22/2020 9:15 AM With: Address: When: Hui Lindo [address] [place] [address], [facility] [place] [address] Business (1) Medications During the [...] or concerns, please call the office at [phone] -Follow up as scheduled Viruses or Bacteria [...] Control and Prevention [facility]2020 [facility] Intraoperative Record MAGR Intra-Op Record Summary Primary Physician: Finalized Date/Time: 03/13/20 10:36:09 Pt. Name: JEREMI HERNANDEZ Sr/Sex: 1965 MALE Med Rec #: [id number] Physician: Robert Phelan DO Financial #: [id number] Pt. Type: D Room/Bed: / Admit/Disch: 03/13/20 07:12:00 - Institution: Case Times MAGR Entry 1 Patient In Room Time 03/13/20 10:15:00 Out Room Time 12/28/20 10:35:00 Anesthesia Start Time 12/28/20 10:16:00 Stop Time 03/13/20 10:24:00 Surgery Start Time 03/13/20 10:20:00 Stop Time 03/13/20 10:24:00 Last Modified By: Maude Dialol RN 03/13/20 10:35:29 Case Attendance MAGR Entry 1 Entry 2 Entry 3 Case Attendee Nato Goddard MD RN, Alana Neri RN Role Performed Anesthesiologist of Advisory Application Developer Advisory Application Developer Record Time In 03/13/20 10:15:00 03/13/20 10:15:00 03/13/20 10:15:00 Time Out 03/13/20 10:26:00 03/13/20 10:35:00 03/13/20 10:30:00 Procedure Interscalene Block Interscalene Block Interscalene Block Last Modified By: Yoel RN, Maude Diallo RN, Maude Ingram RN 03/13/20 [...] Signed By: Maude Diallo RN 03/13/20 10:36 [facility] MAGR PACU Recordon 0 MAGR PACU Record MAGR PACU Record Summary Primary Physician: Robert Phelan DO Finalized Date/Time: 03/13/20 13:06:43 Pt. Name: JEREMI HERNANDEZ Sr/Sex: 1965 MALE Med Rec #: [id number] Physician: Robert Phelan DO Financial #: [id number] Pt. Type: D Room/Bed: / Admit/Disch: 03/13/20 07:12:00 - Institution: PACU Case Times MAGR Entry 1 In PACU I 03/13/20 12:35:00 Discharge from PACU 03/13/20 13:05:00 I Last Modified By: Kesha La RN 03/13/20 13:06:19 General Comments: arrives to PACU from OR 5, see Padmini for details pt dcd from PACU in stable condition using Dr Goddard's discharge criteria. pt transferred to room 208 and report given to Loyd Finalized By: Kesha La RN Document Signatures Signed By: Kesha La RN 03/13/20 13:06 [facility] MAGR Postoperative Recordon 03-13-2020 MAGR Postoperative Record MAGR Phase II Record Summary Primary Physician: Robert Phelan DO Finalized Date/Time: 03/13/20 14:14:57 Pt. Name: JEREMI HERNANDEZ Sr/Sex: 1965 MALE Med Rec #: [id number] Physician: Robert Phelan DO Financial #: [id number] Pt. Type: D Room/Bed: / Admit/Disch: 03/13/20 [...] Signed By: Kesha La RN 03/13/20 14:14 [facility] Preoperative Recordon 1 05-14-2019 [facility] Preoperative Record [facility] Pre-Op Record Summary Primary Physician: Robert Phelan DO Finalized Date/Time: 03/13/20 13:03:07 Pt. Name: JEREMI HERNANDEZ Sr./Sex: 1965 MALE Med Rec #: [id number] Physician: Robert Phelan DO Financial #: [id number] Pt. Type: D Room/Bed: / Admit/Disch: 03/13/20 [...] By: Jelena Diehl RN 03/13/20 13:03 Normal [facility] Operative Report - Surgeon/P reg 03-13-2020 Operative Report - Surgeon/Physician Preoperative diagnosis: [...] along the medial row the footprint. ( [employer]) helacoil suture anchors. These had been loaded [...] on: 03/13/2020 13:53 EST] Robert Phelan DO [facility] Patient Handouton 03-13-[address] GONZALEZ [...] or concerns, please call the office at [phone] -Follow up as scheduled [facility] 2019 Novel Coronavirus (CoVI D-19), ISAAC LCon 03-10-2020 SARS-CoV-2, ISAAC (COVID-19) LC Not Detected Not Detected [facility] Comment on above: Order Comment: [phone] Result Comment: This nucleic acid amplification test was developed and its performance characteristics determined by [employer]. Nucleic acid amplification tests include PCR and [...] detected) result in this assay. Performed At: [facility] [address] [facility] [place] [id number] Salina Lopez MD Ph:[phone] Performed By: #### 6 [id number] ####[facility] (DEFAULT)[address] [place] [address] Progress Note - Nurseon 02-15 Progress Note [...] on: 03/08/2020 11:45 EST] Ashlee Suero RN [facility] Progress Note - Nurseon 02-15 Progress Note - Nurse Dr. Jay reviewed [...] on: 03/06/2020 12:36 EST] Jelena Diehl RN [facility] Progress Note - Nurseon 02-14 Progress Note - Nurse Dr Jay reviews PAT information and testing results. Requested the PCP office note and questioned if any old EKG's from PCP. Will Call patient's PCP today. [Electronically Signed on: 02/29/2020 08:23 EST] Jelena Diehl RN [Verified on: 02/29/2020 08:23 EST] Jelena Diehl RN [facility] Coding Summaryon 02-28-2020 Coding Summary CODING DATE: 02/28/2020 [facility] STATUS: Home PAYOR: Commercial Insurance APC [...] Jennifer Bower Date Saved: 02/28/2020 09:15 am [facility] Vital Signs Date Time Vital Sign Value Performing Clinician Facility 12-23-2023 13:41-0400 Body mass index (BMI) [Ratio] 35.4 kg/m2 [facility] 12-23-2023 13:41-0400 Diastolic blood pressure 70 mm[Hg] [facility] 12-23-2023 13:41-0400 Heart rate 78 /min [facility] 12-23-2023 13:41-0400 Respiratory rate 18 /min [facility] 12-23-2023 13:41-0400 SaO2% (BldA) [Mass fraction] 97 % [facility] 12-23-2023 13:41-0400 Systolic blood pressure 158 mm[Hg] [facility] 12-23-2023 11:43-0400 Body height 175.26 cm [facility] 12-23-2023 11:43-0400 Body weight 109.03 kg [facility] 11-12-2022 09:45-0400 Body height 175.26 cm Hui Lindo Other [facility] Other 11-12-2022 09:45-0400 Body mass index (BMI) [Ratio] 35.29 kg/m2 Hui Lindo Other [facility] Other 11-12-2022 09:45-0400 Body temperature 97.9 [degF] Hui Lindo Other [facility] Other 11-12-2022 09:45-0400 Body weight 108.41 kg Hui Lindo Other [facility] Other 11-12-2022 09:45-0400 Diastolic blood pressure 100 mm[Hg] Hui Lindo Other [facility] Other 11-12-2022 09:45-0400 Systolic blood pressure 163 mm[Hg] Hui Lindo Other [facility] Other Encounters Encounter Date Encounter Type Care Provider Facility Start: 10-18-2024 End: 10-18-2024 ambulatory Rambo Gupta MD Facility:[facility] Start: 12-23-2023 End: 12-23-2023 ambulatory [facility] Work Phone: Start: 12-23-2023 End: 12-23-2023 Patient encounter procedure Count Includes [facility] Work Phone: Start: 03-28-2023 End: 03-28-2023 ambulatory Hui Lindo Other [facility] Other Start: 03-28-2023 Telephone encounter Hui Guicho [facility] Start: 03-18-2023 End: 03-18-2023 ambulatory Hui Lindo Other [facility] Other Start: 03-18-2023 Telephone encounter Hui Guicho [facility] Start: 11-12-2022 End: 11-12-2022 ambulatory Hui Lindo Other [facility] Other Start: 11-12-2022 Office outpatient vi sit 15 minutes Hui Lindo [facility] Start: 10-01-2022 End: 10-01-2022 ambulatory Hui Lindo Other [facility] Other Start: 10-01-2022 Telephone encounter Hui Lindo [facility] Start: 09-23-2022 End: 09-23-2022 ambulatory Hui Lindo Other [facility] Other Start: 09-23-2022 Telephone encounter Hui Lindo [facility] Start: 09-04-2022 End: 09-04-2022 ambulatory Hui Lindo Other [facility] Other Start: 09-04-2022 Telephone encounter Hui Lindo [facility] Start: 06-07-2022 (Televisit) Televisit Hui Lindo [facility] Start: 06-07-2022 End: 06-07-2022 ambulatory Hui Lindo Other [facility] Other Start: 06-07-2022 Encounter for genera l adult medical examination without abnormal findings Hui Lindo [facility] Start: 05-25-2021 Encounter for genera l adult medical examination without abnormal findings DR HUI LINDO [facility] Start: 05-24-2021 End: 05-25-[address] HUI LINDO Facility:[facility] Start: 05-24-2021 End: 05-25-2021 Encounter for general adult medical examination without abnormal findings DR HUI LINDO Facility:[facility] Procedures Date Procedure Procedure Detail Performing Clinician Start: 05-24-[address] HUI LINDO Comment on above: Performed By: #### P [facility] #### [facility] [address] [place] [address] Dr. Cior Mesa Plan of Treatment Date Care Activity Detail Author Start: 12-23-2023 Patient referral [facility] Work Phone: Comprehensive metabo lic 2000 panel - Serum or Plasma [facility] Patient referral [facility] Work Phone: XR Hip - left 2 Views [facility] XR Lumbar spine 2 or 3 Views [facility] Immunizations Immunization Date Immunization Notes Care Provider Nakita huffman 01-05-2019 influenza virus vaccine, split virus (incl. purified surface antigen) Hui Lindo Other [facility] Other 01-05-2019 influenza virus vaccine, unspecified formulation [facility] Payers Date Payer Category Payer Unknown 2019 Unknown [id number] 1965 Unknown [id number] 1965 Unknown [id number] [place] [id number] Social History Date Type Detail Facility Sex Assigned At [facility] Other Start: 1965 Sex Assigned At Male F [facility] Hospital Discharge instructions 12-23-2023 Note Date & Type Note Facility 12-23-2023 Hospital Discharg e instructions Ambulatory OrdersReferral to Orthopedics Time Frame: 12/23/23, Location: None Selected [facility] Work Phone: Evaluation note 11-12-2022 Note [...] maxillary sinusitis (ICD-10 - J01.01) Finish antibiotic [facility] Other Evaluation note 06-07-2022 Note Date & [...] PSA (prostate specific antigen) (ICD-10 - Z12.5) [facility] Other Evaluation note Note Date & Type Note Facility Evaluation note No Information [employer] Other Evaluation note Note Date & Type Note Facility Evaluation note Diagnosis Onset Date Essential hypertension acute Left hip pain acute Lumbar pain with radiation down left leg acute Screening PSA (prostate specific antigen) acute [facility] Work Phone: History general Narrative - Reported Note Date & Type Note Facility History general Narrative - Reported Type Medical History Bronchitis Medical History LUMBAR PAIN WITH RADIATION DOWN LEFT LEG Medical History Back pain, thoracic Medical History Anxiety and depression Medical History Essential hypertension [facility] Other History general Narrative - Reported Note [...] no changes required, Problem Status : Active, [facility] Other Summary Purpose Family History No Family History Records Found Relationship Condition Age at Onset Recorded Date/T yue father Hypertension Unknown Family history of lung cancer Unknown Heart disease Unknown Malignant neoplasm Unknown History of stroke Unknown Advance Directives No Advanced Directives Records Found Advance Directive Response Recorded Date/ Time Advance Directives No December 18, 2023 4:05pm Hospital Course Note [facility] SURGERY Clinical Discharge Summary PERSON INFORMATION Name JEREMI HERNANDEZ Sr Age 54 Years 1965 Sex MALE Language Argentine PCP Hui Lindo MD Marital Status Med Service Ambulatory Surgery Acct# Arrival 03/13/2020 07:12:00 Visit Reason SURGERY - RIGHT SHOULDER SCOPE WITH ROTATOR CUFF REPAIR - RAPP AND NEPHEW IMPLANT Acuity LOS 024 05:01 Address: [address] [place] [id number] Comment: PROVIDER INFORMATION VITALS INFORMATION Vital Sign [...] content) No Status Records FoundNo Status Records FoundNo Status Records Found INFORMATION SOURCE (unrecogn ized section and content) DATE CREATED AUTHOR 03/24/2020 [facility] DATE CREATED AUTHOR AUTHOR'S ORGANIZ ATION 05/27/2021 [facility] DATE CREATED AUTHOR AUTHOR'S ORGANIZ ATION 10/29/2024 [facility] REASON FOR VISIT (unrecogniz ed section and [...] BE BASED ON THE PRIMARY CLINICAL RECORDS. [facility]. provides no warranty or guarantee of the accuracy or completeness of information in this document.
--- NOTE | 2024-11-01 15:17 | P.CN_ITS ---
Consult Note: HPI Data of Consult Patient: known to practice within the last 3 years Consult date: 11/01/24 Requesting Physician: Rambo Gupta MD Primary Care Provider: Hui Kulkarni MD Consult Narrative Reason for consult: low back, left leg pain Narrative: 58yom who presents for assessment. notes only a few days of relief after recent lumbar tfesi. imaging reviewed, which is significant for marked narrowing to the left at l5-s1. uses tylenol primarily. cc:: CC: Rambo Gupta MD Review of Systems ROS Status of ROS 10 or more systems reviewed and unremark able except as noted in history and below PFSH PFS Medical History Foreign body finger ?S60.459A - Superficial foreign body of unspecified finger, initial encounter (ICD-10) Marijuana user ?F12.90 - Cannabis use, unspecified, uncomplicated (ICD-10) Osteoarthritis ?M19.90 - Unspecified osteoarthritis, unspecified site (ICD-10) Anxiety ?F41.9 - Anxiety disorder, unspecified (ICD-10) Chipped tooth ?S02.5XXA - Fracture of tooth (traumatic), initial encounter for closed fracture (ICD-10) Obesity (BMI 35.0-39.9 without comorbidity) ?E66.9 - Obesity, unspecified (ICD-10) Acid reflux ?K21.9 - Gastro-esophageal reflux disease without esophagitis (ICD-10) Current smoker ?F17.200 - Nicotine dependence, unspecified, uncomplicated (ICD-10) High blood pressure ?I10 - Essential (primary) hypertension (ICD-10) Surgical History S/P right rotator cuff repair ?Z98.890 - Other specified postprocedural states (ICD-10) Meds Home Medications and Allergies Home Medications ?Medication ?Instructions ?Recorded ?Confirmed ?Type albuterol sulfate 2.5 mg/3 mL 2.5 mg inhalation Q4H W[place] N 09/23/24 10/18/24 History (0.083 %) solution for nebulization shortness of breat h or wheezing albuterol sulfate 90 mcg/actuation 2 inh inhalation Q4 H PRN shortness 09/23/24 10/18/24 History aerosol inhaler of breath or wheezing losartan 50 mg tablet 50 mg PO DAILY 09/23/2407/09 History Allergies Allergy/AdvReac Type Severity Reaction Status Date / Time No Known Drug Allergies Allergy Verified 10/18/24 09:24 Exam Narrative Exam Narrative: Psych-alert and oriented x 3. Attentive and appropriate, constitutionally normal, displays normal mood and affect per situation.? There are no obvious deficits in memory, reasoning, or intellect.? Skin-no obvious rashes, bruising, erythema noted to the patient's area of pain. Extremities- extremities are warm with minimal edema and palpable pulses. Lumbar-no significant tenderness to palpation noted in the lumbar spine and paraspinal musculature.? Pain is elicited with extension, and lateral rotation of the lumbar spine. Range of motion is slightly diminished with these motions due to pain. Coordination remains intact.? Gait remains non-antalgic. Assessment and Plan Assessment and Plan (1) Lumbar stenosis with neurogenic claudication: (2) Lumbar spondylosis: Plan 58yom who presents for assessment. failed conservative measures, as noted. 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 placed referral for dr. kulkarni. meds reviewed, prescribed tizanidine 4mg bid prn. follow up after surgical eval.
== END 2024-11-01 13:57 | disposition home or self-care (01) ==
LOC: PM 13:56
PROVIDERS: PCP Family Medicine; Visit Provider Anesthesiology
DX: M48.062 Spinal stenosis, lumbar region with neurogenic claudication (principal); M47.816 Spondylosis without myelopathy or radiculopathy, lumbar region
CPT/HCPCS: G0463

== ENCOUNTER 2024-12-23 06:33 | Outpatient (OUT) | payer BC, SELFPAY ==
--- OUTSIDE RECORDS SUMMARY | 2024-12-23 06:37 | XMS_ITS | CCD ---
Author Organization [facility] Care Team Providers Care Vamp Maker Name Role Phone DR HUI LINDO Admitting Unavailable GUICHO, DR HUI Potts Attending Unavailable DR HUI LINDO Primary Care Unavailable MONTY, DR WILD Watt Consulting Unavailable GUICHO, DR HUI Potts Consulting Unavailable Hui Lindo Alonso MEDINA, Rambo Chapman Attending Unavailable Alonso MEDINA, Rambo Chapman Attending Unavailable Allergies Allergy Classification Reported Allergen(s) Allergy Type Date of Onset Reaction(s) Facility (8 sources) Esomeprazole Drug Allergy 12-23-19 Unknown, Diarrhea [facility] (8 sources) gabapentin Drug Allergy 12-23-19 24 Unknown, Unknown Reaction [facility] (7 sources) Ibuprofen Drug Allergy Unknown [facility] Other (3 sources) Ibuprofen Drug Allergy 02-18-20 14 Unknown [employer] [facility] Other (3 sources) NexIUM *ULCER DRUGS/ANTISPASMO DICS/ANTICHOLINE RGIC Propensity to adverse reactions 02-18-20 14 Unknown [facility] Other Medications Current Medications Medication Drug Class(es) [...] Drug Class(es) Dates Sig (Normalized) Sig (Original) [id number] 200 actuat albuterol 0.09 mg/actuat metered dose [...] 05-24-2021 BASO # 0.0 103/ul Normal 0.0-0.1 [facility] Comment on above: Performed By: #### C BC #### [facility] [address] [place] [address] Dr. Ciro Mesa Basophils/100 WBC (Bld) 0.5 % Normal 0.2-2.0 [facility] Comment on above: Performed By: #### C BC #### [facility] [address] [place] [address] Dr. Ciro Mesa EO # 0.2 103/ul Normal 0.0-0.7 [facility] Comment on above: Performed By: #### C BC #### [facility] [address] [place] [address] Dr. Ciro Mesa Eosinophils/100 WBC (Bld) 2.4 % Normal 0.9-7.0 [facility] Comment on above: Performed By: #### C BC #### [facility] [address] [place] [address] Dr. Ciro Mesa Erythrocyte distribution width (RBC) [Ratio] 13.1 % Normal 11.0-15.0 [facility] Comment on above: Performed By: #### C BC #### [facility] [address] [place] [address] Dr. Ciro Mesa Hematocrit (Bld) [Volume fraction] 48.6 % Normal 42.0-54.0 [facility] Comment on above: Performed By: #### C BC #### [facility] [address] [place] [address] Dr. Ciro Mesa Hemoglobin (Bld) [Mass/Vol] 16.5 g/dL Normal 14.0-18.0 [facility] Comment on above: Performed By: #### C BC #### [facility] [address] [place] [address] Dr. Ciro Mesa IG # 0.03 10e3/ul Normal 0.00-0.03 [facility] Comment on above: Performed By: #### C BC #### [facility] [address] [place] [address] Dr. Ciro Mesa IG % 0.4 % Normal 0.0-0.5 [facility] Comment on above: Performed By: #### C BC #### [facility] [address] [place] [address] Dr. Ciro Mesa LYMPH # 2.7 103/ul Normal 1.2-3.8 [facility] Comment on above: Performed By: #### C BC #### [facility] [address] [place] [address] Dr. Ciro Mesa Lymphocytes/100 WBC (Bld) 32.2 % Normal 20.5-60.0 [facility] Comment on above: Performed By: #### C BC #### [facility] [address] [place] [address] Dr. Ciro Mesa MANUAL DIFF REQ NO Normal [facility] Comment on above: Performed By: #### C BC #### [facility] [address] [place] [address] Dr. Ciro Mesa MCH (RBC) [Entitic mass] 32.1 pg Normal 25.9-34.0 [facility] Comment on above: Performed By: #### C BC #### [facility] [address] [place] [address] Dr. Ciro Mesa MCHC (RBC) [Mass/Vol] 34.0 g/dL Normal 29.9-35.2 [facility] Comment on above: Performed By: #### C BC #### [facility] [address] [place] [address] Dr. Ciro Mesa MCV (RBC) [Entitic vol] 94.6 fL Critically high 80.0-94.0 [facility] Comment on above: Performed By: #### C BC #### [facility] [address] [place] [address] Dr. Ciro Mesa MONO # 0.7 103/ul Normal 0.3-0.8 [facility] Comment on above: Performed By: #### C BC #### [facility] [address] [place] [address] Dr. Ciro Mesa Monocytes/100 WBC (Bld) 8.2 % Normal 1.7-12.0 [facility] Comment on above: Performed By: #### C BC #### [facility] [address] [place] [address] Dr. Ciro Mesa NEUT # 4.7 103/ul Normal 1.4-6.5 [facility] Comment on above: Performed By: #### C BC #### [facility] [address] [place] [address] Dr. Ciro Mesa Neutrophils/100 WBC (Bld) 56.3 % Normal 43.0-75.0 [facility] Comment on above: Performed By: #### C BC #### [facility] [address] [place] [address] Dr. Ciro Mesa Platelet mean volume (Bld) [Entitic vol] 9.1 fL Critically low 9.5-13.5 [facility] Comment on above: Performed By: #### C BC #### [facility] [address] [place] [address] Dr. Ciro Mesa PLT 257 103/ul Normal 150-450 [facility] Comment on above: Performed By: #### C BC #### [facility] [address] [place] [address] Dr. Ciro Mesa RBC 5.14 106/ul Normal 4.70-6.10 [facility] Comment on above: Performed By: #### C BC #### [facility] [address] [place] [address] Dr. Ciro Mesa WBC 8.3 103/ul Normal 4.0-11.0 [facility] Comment on above: Performed By: #### C BC #### [facility] [address] [address] [address] Ciro Mesa GLYCOHEMOGLOBIN A1Con 2021 ADA RECOMMENDATION ADA THERAPEUTIC TARG ET 6.0 - 7.0 ACTION SUGGESTED > 7.0 Normal [facility] Comment on above: Performed By: #### A 1C #### [facility] [address] [place] [address] Dr. Ciro Mesa Glucose [Mass/Vol] 120 mg/dL Normal [facility] Comment on above: Performed By: #### A 1C #### [facility] [address] [place] [address] Dr. Ciro Mesa HbA1c (Bld) [Mass fraction] 5.8 % Normal <=6.0 [facility] Comment on above: Performed By: #### A 1C #### [facility] [address] [place] [address] Dr. Ciro Mesa LIPID PROFILEon 05-24-2021 CHOL-HDL RATIO NORM SEE BELOW Normal [facility] Comment on above: Result Comment: 3.3 - 4.4 LOW RISK 4.4 - 7.1 AVERAGE RISK 7.1 - 11.0 MODERATE RISK >11.0 HIGH RISK Performed By: #### C MP, TSH, LIPID #### [facility] [address] [place] [address] Dr. Ciro Mesa Cholesterol [Mass/Vol] 218 mg/dL Critically high <=200 [facility] Comment on above: Performed By: #### C MP, TSH, LIPID #### [facility] [address] [place] [address] Dr. Ciro Mesa Cholesterol in HDL [Mass/Vol] 40 mg/dL Normal [facility] Comment on above: Performed By: #### C MP, TSH, LIPID #### [facility] [address] [place] [address] Dr. Ciro Mesa Cholesterol in LDL [Mass/Vol] 148.2 mg/dL Normal [facility] Comment on above: Performed By: #### C MP, TSH, LIPID #### [facility] [address] [address] [address] Ciro Mesa Cholesterol.total/Ch olesterol in HDL [Mass ratio] 5.5 {ratio} Normal [facility] Comment on above: Performed By: #### C MP, TSH, LIPID #### [facility] [address] [address] [address] Ciro Mesa HDL NORMAL > or = 60 mg/dl - LO W CARDIOVASCULAR RISK <40 mg/dl - HIGH CARDIOVASCULAR RISK Normal [facility] Comment on above: Performed By: #### C MP, TSH, LIPID #### [facility] [address] [address] [address] Ciro Mesa LDL CALC NORMAL SEE BELOW Normal [facility] Comment on above: Result Comment: <100 mg/dl OPTIMAL 100 - 129 mg/dl NEAR OR ABOVE OPTIMAL 130 - 159 mg/dl BORDERLINE HIGH 160 - 189 mg/dl HIGH >190 mg/dl VERY HIGH Performed By: #### C MP, TSH, LIPID #### [facility] [address] [place] [address] Dr. Ciro Mesa Triglyceride [Mass/Vol] 149 mg/dL Normal <=150 [facility] Comment on above: Performed By: #### C MP, TSH, LIPID #### [facility] [address] [place] [address] Dr. Ciro Mesa VLDL CALC 29.8 mg/dL Normal [facility] Comment on above: Performed By: #### C MP, TSH, LIPID #### [facility] [address] [place] [address] Dr. Ciro Mesa PROF 14(COMP METB)on 022 Albumin [Mass/Vol] 3.9 g/dL Normal 3.5-5.0 [facility] Comment on above: Performed By: #### C MP, TSH, LIPID #### [facility] [address] [place] [address] Dr. Ciro Mesa Albumin/Globulin [Mass ratio] 0.9 {ratio} Normal [facility] Comment on above: Performed By: #### C MP, TSH, LIPID #### [facility] [address] [address] [address] Ciro Mesa ALP [Catalytic activity/Vol] 79 U/L Normal 38-126 [facility] Comment on above: Performed By: #### C MP, TSH, LIPID #### [facility] [address] [address] [address] Ciro Mesa ALT [Catalytic activity/Vol] 35 U/L Normal 21-72 [facility] Comment on above: Performed By: #### C MP, TSH, LIPID #### [facility] [address] [address] [address] Ciro Mesa Anion gap [Moles/Vol] 10.3 mmol/L Normal [facility] Comment on above: Performed By: #### C MP, TSH, LIPID #### [facility] [address] [place] [address] Dr. Ciro Mesa AST [Catalytic activity/Vol] 21 U/L Normal 17-59 [facility] Comment on above: Performed By: #### C MP, TSH, LIPID #### [facility] [address] [address] [address] Ciro Mesa Bilirubin [Mass/Vol] 0.6 mg/dL Normal 0.2-1.3 [facility] Comment on above: Performed By: #### C MP, TSH, LIPID #### [facility] [address] [address] [address] Ciro Mesa Calcium [Mass/Vol] 8.5 mg/dL Normal 8.4-10.2 [facility] Comment on above: Performed By: #### C MP, TSH, LIPID #### [facility] [address] [address] [address] Ciro Mesa Chloride [Moles/Vol] 105 mmol/L Normal 98-107 [facility] Comment on above: Performed By: #### C MP, TSH, LIPID #### [facility] [address] [address] [address] Ciro Mesa CO2 [Moles/Vol] 30.5 mmol/L Critically high 22.0-30.0 [facility] Comment on above: Performed By: #### C MP, TSH, LIPID #### [facility] [address] [address] [address] Ciro Mesa Creatinine [Mass/Vol] 0.96 mg/dL Normal 0.66-1.25 [facility] Comment on above: Performed By: #### C MP, TSH, LIPID #### [facility] [address] [address] [address] Ciro Mesa EGFR-AF BAHAMIAN >60 Normal >=60 [facility] Comment on above: Performed By: #### C MP, TSH, LIPID #### [facility] [address] [address] [address] Ciro Mesa EGFR-NON AF BAHAMIAN >60 Normal >=60 [facility] Comment on above: Performed By: #### C MP, TSH, LIPID #### [facility] [address] [address] [address] Ciro Mesa Globulin (S) [Mass/Vol] 4.3 g/dL Normal [facility] Comment on above: Performed By: #### C MP, TSH, LIPID #### [facility] [address] [address] [address] Ciro Mesa Glucose [Mass/Vol] 131 mg/dL Critically high 74-106 [facility] Comment on above: Performed By: #### C MP, TSH, LIPID #### [facility] [address] [address] [address] Ciro Mesa Potassium [Moles/Vol] 3.8 mmol/L Normal 3.4-5.0 [facility] Comment on above: Performed By: #### C MP, TSH, LIPID #### [facility] [address] [address] [address] Ciro Mesa Protein [Mass/Vol] 8.2 g/dL Normal 6.1-8.2 [facility] Comment on above: Performed By: #### C MP, TSH, LIPID #### [facility] [address] [address] [address] Ciro Mesa Sodium [Moles/Vol] 142 mmol/L Normal 137-145 [facility] Comment on above: Performed By: #### C MP, TSH, LIPID #### [facility] [address] [address] [address] Ciro Mesa Urea nitrogen [Mass/Vol] 10.0 mg/dL Normal 9.0-20.0 [facility] Comment on above: Performed By: #### C MP, TSH, LIPID #### [facility] [address] [address] [address] Ciro Mesa Urea nitrogen/Creatinine [Mass ratio] 10.4 mg/mg Normal [facility] Comment on above: Performed By: #### C MP, TSH, LIPID #### [facility] [address] [address] [address] Ciro Mesa TSHon 05-24-2021 TSH 1.701 uIU/mL Normal 0.470-4.680 [facility] Comment on above: Performed By: #### C MP, TSH, LIPID #### [facility] [address] [address] [address] Ciro Mesa TSH RANGE SEE BELOW Normal [facility] Comment on above: Result Comment: <0.3 4 UIU/ml HYPERTHYROID 0.34-5.60 UIU/ml EUTHYROID >5.60 UIU/ml HYPOTHYROID Performed By: #### C MP, TSH, LIPID #### [facility] [address] [address] [address] Ciro Mesa XR LSPINE MIN 4 [...] authenticated by: WILD MILLAN Date: 2021-05-24 16:25 [facility] Consent Formson 03-23-2020 Consent Forms [id number] 10 [id number]#1.0 [id number] [facility] Coding Summaryon 03-21-2020 Coding Summary CODING DATE: 03/21/2020 [facility] STATUS: Home PAYOR: Commercial Insurance APC DESCRIPTION [...] PROC APC STAT DESCRIPTION DOCTOR NAME DATE [id number] J1 Arthroscopy, shoulder, Robert Phelan And [...] Shaikh Revised Date Saved: 03/21/2020 09:34 am [facility] MAGR Intraoperative Recordon 03-15-2020 MAGR Intraoperative Record MAGR Intra-Op Record Summary Primary Physician: Robert Phelan DO Finalized Date/Time: 03/15/20 13:30:29 Pt. Name: JEREMI HERNANDEZ Sr/Sex: 1965 MALE Med Rec #: [id number] Physician: Robert Phelan DO Financial #: [id number] Pt. Type: D Room/Bed: / Admit/Disch: 03/13/20 [...] Role Performed Surgeon - Primary Anesthesiologist of Painter Ordnance Record Time In 03/13/20 10:36:00 03/13/20 10:36:00 03/13/20 10:36:00 Time Out 03/13/20 12:38:00 03/13/20 12:38:00 03/13/20 12:38:00 Procedure Arthroscopy Arthroscopy Arthroscopy Shoulder(Right) Shoulder(Right) Shoulder(Right) Last Modified By: Laura Thornton RN, Stephanie RN Sauer, Stephanie RN 03/13/20 14:08:44 03/13/20 14:08:44 03/13/20 14:08:44 Entry 4 Entry 5 Case Attendee Shelbi Mcleod CST, Brittany E CSFA Role Performed Case Hardener Scrub Personnel Time In 03/13/20 10:36:00 03/13/20 10:36:00 Time Out 03/13/20 12:38:00 03/13/20 12:38:00 Procedure Arthroscopy Arthroscopy Shoulder(Right) Shoulder(Right) Last Modified By: Laura Thornton RN, Stephanie RN 03/13/20 14:08:44 03/13/20 14:08:44 General Comments: NEEL SERPUMA HUITRON & NEPHEW REP Surgical Procedures MAGR Pre-Care Text: A.20 Verifies operative procedure, surgical site, and laterality Im.150 Develops individualized plan of care Entry 1 Procedure Arthroscopy Shoulder Primary Procedure Yes Primary Surgeon Robert Phelan Modifiers Right Foreign ZAMORA Surgeon Comment RIGHT SHOULDER SCOPE Start 03/13/20 11:04:00 WITH ROTATOR CUFF REPAIR - HUITRON AND NEPHEW IMPLANT Stop 03/13/20 12:30:00 Anesthesia [...] Implant Action Not Implanted Implant Implant Description HUITRON & NEPHEW FIRST HUITRON & NEPHEW HUITRON & NEPHEW PASS SUTURE PASSER HEALICOIL SUTURE ANCHOR HEALICOIL SUTURE ANCHOR [id number] 5.5MM [id number] 4.75MM [id number] Implant Information Implant/Explant 03/13/20 12:00:00 03/13/20 12:00:00 03/13/20 12:00:00 Date/Time Implanted/Explanted Robert Phelan James Huddleston, James By: Foreign Davey DO Foreign DO Size 5.5MM 4.75MM Senior System Operator HUITRON & NEPHEW HUITRON & NEPHEW HUITRON & NEPHEW Catalog # [id number] Lot Number [id number] Expiration Date 10/26/22 08/10/22 12/07/22 Serial Number Device Identifier Human Readable KB Machine Readable KB MR Class Implant Usage Data Site Shoulder R Shoulder R Shoulder R Quantity 1 1 1 Reason for Explant Reason Not Retained Explant Disposition Consumer Product Advisor Sterility External Indicator Result Internal Indicator Results Outcome Met (O.30) Yes Yes Yes Last Modified By: Laura Thornton RN, Stephanie RN Sauer, Stephanie RN 03/13/20 14:08:30 03/13/20 14:08:30 03/13/20 14:08:31 Entry 4 Entry 5 Entry 6 Procedure Arthroscopy Arthroscopy Arthroscopy Shoulder(Right) Shoulder(Right) Shoulder(Right) Implant Action Implant Not Implanted Not Implanted Description HUITRON & NEPHEW HUITRON & NEPHEW 4.75 HUITRON & NEPHEW HEALICOIL SUTURE ANCHOR DILATOR (AWL) [id number] ULTRATAPE 38 [id number] 4.75MM [id number] Implant Information Implant/Explant 03/13/20 12:00:00 03/13/20 12:00:00 03/13/20 12:00:00 Date/Time Implanted/Explanted Robert Phelan James Huddleston, James By: Foreign Hudsonw DO Size 4.75MM 38 Senior System Operator HUITRON & NEPHEW HUITRON & NEPHEW HUITRON & NEPHEW Catalog # [id number] Lot Number [id number] Expiration Date 08/02/10/24 04/21/23 Serial Number Device Identifier Human Readable KB Machine Readable KB MR Class Implant Usage Data Site Shoulder R Shoulder R Shoulder R Quantity 1 1 1 Reason for Explant Reason Not Retained Explant Disposition Consumer Product Advisor Sterility External Indicator Result Internal Indicator Results Outcome Met (O.30) Yes Yes Yes Last Modified By: Laura Thornton RN, Stephanie RN Sauer, Stephanie RN 03/13/20 14:08:31 03/13/20 14:08:31 03/13/20 14:08:31 Entry 7 Procedure Arthroscopy Shoulder(Right) Implant Action Not Implanted Description [id number] 8.5MM CANNULA [id number] Implant Information Implant/Explant 03/13/20 12:00:00 Date/Time Implanted/Explanted Robert Phelan By: Foreign ZAMORA Size 8.5MM Senior System Operator [id number] Catalog # [id number] Lot Number [id number] Expiration Date 05/07/21 Serial Number Device Identifier Human Readable KB Machine Readable KB MR Class Implant Usage Data Site Shoulder R Quantity 1 Reason for Explant Reason Not Retained Explant Disposition Consumer Product Advisor Sterility External Indicator Result Internal Indicator Results [...] Reason for Unfinalizing 03/15/20 13:26 MHBLONG [facility] Consent Formson 03-14-2020 Consent Forms [id number] 20 [id number]#[address] [place] [address] Discharge Instructionson Discharge Instructions [id number]#1.[address] [place] [address] History and Physicalon 03-14 History and Physical [id number]#1.[address] [place] [address] Medication Managementon 02-15 Medication Management [id number]#1.[address] [place] [address] Outside Recordson 03-14-2020 Outside Records [id number] 20 [id number]#1.[address] [place] [address] Telemetry Stripson 0 Telemetry Strips [id number] 20 [id number]#1.[address] [place] [address] Anesthesia Noteon 03-13-2020 Anesthesia Note Patient: JEREMI HERNANDEZ Sr Age: 54 years Sex: MALE : 1965 Associated Diagnoses: None Author: Nato Goddard MD Preoperative Information Anesthesia history: Patient history: No difficult intubation, No malignant hyperthermia. Family history: No malignant hyperthermia. Review of Systems Respiratory: No shortness of breath, No apnea. Cardiovascular: No known PA, No chest pain. Gastrointestinal Health Status Allergies: Allergic Reactions (All) No known allergies Current medications: Home Medications (3) Active Albuterol (Eqv-ProAir HFA) 90 mcg/inh inhalation aerosol 2 puff(s), PRN, INH, BID albuterol 0.083% inh solution 6 mL, PRN, INH, q6hr cloNIDine 0.1 mg oral tablet 0.1 mg = 1 tab(s), PO, BID Problem list (past medical history): All Problems Smoker / SNOMED CT [id number] / Confirmed Histories Family History: No family history items have been selected or recorded. Procedure history: Finger ([id number]). Comments: 02/25/2020 10:12 Jake Maurice RN right ring finger Bilateral eyes ([id number]). Comments: 02/25/2020 10:13 Jake Maurice RN at [...] ECG interpretation: Within normal limits, PVCs. Plan [place] Society of Anesthesiologists#(ASA ) physical status classification: Class III. Anesthetic Preoperative Plan Anesthesia: General. , Regional Interscalene Block. Anesthetic plan, risks, benefits, and alternatives discussed with the patient and/or family. Patient verbalized understanding. Informed consent was given. Consent was signed by the patient. [Electronically Signed on: 03/13/2020 08:52 EST] Nato Goddard MD [Verified on: 03/13/2020 08:52 EST] Nato Goddard MD [facility] Coding Summaryon 03-13-2020 Coding Summary CODING DATE: 03/13/2020 [facility] STATUS: Home PAYOR: Commercial Insurance ADMIT DX: [...] Varsha Nassar Date Saved: 03/13/2020 07:36 am [facility] Inpatient Patient Summaryon 03-13-2020 [place] [id number] Patient Discharge Instructions Name: JEREMI HERNANDEZ Sr : 1965 Patient Address: [address] [place] [address] Primary Care Provider: Name: Hui Lindo MD After you are discharged if you find you have any questions, please, call [phone] ext [phone] to speak to a nurse. Discharge Diagnosis: [...] alcohol and/or drug addiction problems; contact the Mental [facility] Recovery [facility] 07/10 Crisis Hotline -Text 4HOPE to 561367. If you received any narcotics, sedation, or [...] business decisions or sign any legal documents [facility] would like to thank you for allowing us to assist you with your healthcare needs. The following includes patient education materials and information regarding your injury/illness. JEREMI HERNANDEZ Sr has been given the following list of follow-up instructions, prescriptions, and patient education materials: Follow-up Instructions With: Address: When: ADAM DE LOS SANTOS [address] [place] [address], [address] [place] [address] Business (1) 03/22/2020 9:15 AM With: Address: When: Hui Lindo [address] [place] [address] [place] [address] Business (1) Medications During the [...] or concerns, please call the office at [phone] -Follow up as scheduled Viruses or Bacteria [...] for Disease Control and Prevention November 2013 [facility] MAGR Intraoperative Recordon 03-13-2020 [facility] Intraoperative Record MAGR Intra-Op Record Summary Primary Physician: Finalized Date/Time: 03/13/20 10:36:09 Pt. Name: JEREMI HERNANDEZ Sr/Sex: 1965 MALE Med Rec #: [id number] Physician: Robert Phelan DO Financial #: [id number] Pt. Type: D Room/Bed: / Admit/Disch: 03/13/20 [...] Alana Neri RN Role Performed Anesthesiologist of Painter Ordnance [employer] Record Time In 03/13/20 10:15:00 03/13/20 10:15:00 [...] SHOULDER SCOPE WITH ROTATOR CUFF REPAIR - HUITRON AND NEPHEW IMPLANT Start 03/13/20 10:20:00 Stop [...] SHOULDER SCOPE WITH ROTATOR CUFF REPAIR - HUITRON AND NEPHEW IMPLANT Postop Diagnosis SCALENE BLOCK PRIOR TO RIGHT SHOULDER SCOPE WITH ROTATOR CUFF REPAIR - HUITRON AND NEPHEW IMPLANT Blunt or No Is [...] Signed By: Maude Diallo RN 03/13/20 10:36 [facility] MAGR PACU Recordon 0 MAGR PACU Record MAGR PACU Record Summary Primary Physician: Robert Phelan DO Finalized Date/Time: 03/13/20 13:06:43 Pt. Name: JEREMI HERNANDEZ Sr/Sex: 1965 MALE Med Rec #: [id number] Physician: Robert Phelan DO Financial #: [id number] Pt. Type: D Room/Bed: / Admit/Disch: 03/13/20 [...] to room 208 and report given to [facility] Finalized By: Kesha La RN Document Signatures Signed By: Kesha La RN 03/13/20 13:06 [facility] MAGR Postoperative Recordon 03-13-2020 MAGR Postoperative Record MAGR Phase II Record Summary Primary Physician: Robert Phelan DO Finalized Date/Time: 03/13/20 14:14:57 Pt. Name: JEREMI HERNANDEZ Sr/Sex: 1965 MALE Med Rec #: [id number] Physician: Robert Phelan DO Financial #: [id number] Pt. Type: D Room/Bed: / Admit/Disch: 03/13/20 [...] Signed By: Kesha La RN 03/13/20 14:14 [facility] Preoperative Recordon 1 05-14-2019 [facility] Preoperative Record [facility] Pre-Op Record Summary Primary Physician: Robert Phelan DO Finalized Date/Time: 03/13/20 13:03:07 Pt. Name: JEREMI HERNANDEZ Sr/Sex: 1965 MALE Med Rec #: [id number] Physician: Robert Phelan DO Financial #: [id number] Pt. Type: D Room/Bed: / Admit/Disch: 03/13/20 [...] By: Jelena Diehl RN 03/13/20 13:03 Normal [facility] Operative Report - Surgeon/P reg 03-13-2020 Operative [...] along the medial row the footprint. ( Huitron NephSWEEPiO) helacoil suture anchors. These had been loaded [...] on: 03/13/2020 13:53 EST] Robert Phelan DO [facility] Patient Handouton 03-13-[address] GONZALEZ [...] or concerns, please call the office at [phone] -Follow up as scheduled [facility] 2019 Novel Coronavirus (CoVI D-19), ISAAC LCon 03-10-2020 SARS-CoV-2, ISAAC (COVID-19) LC Not Detected Not Detected [facility] Comment on above: Order Comment: [phone] Result Comment: This nucleic acid amplification test was developed and its performance characteristics determined by [employer]. Nucleic acid amplification tests include PCR and [...] detected) result in this assay. Performed At: [facility] [address] [facility] [place] [id number] Salina Lopez MD Ph:[phone] Performed By: #### 6 [id number] ####[facility] (DEFAULT)[address] [place] [address] Progress Note - Nurseon 02-15 Progress Note [...] on: 03/08/2020 11:45 EST] Ashlee Suero RN [facility] Progress Note - Nurseon -2 Progress Note - Nurse Dr. Jay reviewed [...] on: 03/06/2020 12:36 EST] Jelena Diehl RN [facility] Progress Note - Nurseon -1 Progress Note - Nurse Dr Jay reviews PAT information and testing results. Requested the PCP office note and questioned if any old EKG's from PCP. Will Call patient's PCP today. [Electronically Signed on: 02/29/2020 08:23 EST] Jelena Diehl RN [Verified on: 02/29/2020 08:23 EST] Jelena Diehl RN [facility] Coding Summaryon 02-28-2020 Coding Summary CODING DATE: 02/28/2020 [facility] STATUS: Home PAYOR: Commercial Insurance APC DESCRIPTION [...] Jennifer Bower Date Saved: 02/28/2020 09:15 am [facility] Vital Signs Date Time Vital Sign Value Performing Clinician Facility 12-23-2023 13:41-0400 Body mass index (BMI) [Ratio] 35.4 kg/m2 [facility] 12-23-2023 13:41-0400 Diastolic blood pressure 70 mm[Hg] [facility] 12-23-2023 13:41-0400 Heart rate 78 /min [facility] 12-23-2023 13:41-0400 Respiratory rate 18 /min [facility] 12-23-2023 13:41-0400 SaO2% (BldA) [Mass fraction] 97 % [facility] 12-23-2023 13:41-0400 Systolic blood pressure 158 mm[Hg] [facility] 12-23-2023 11:43-0400 Body height 175.26 cm [facility] 12-23-2023 11:43-0400 Body weight 109.03 kg [facility] 11-12-2022 09:45-0400 Body height 175.26 cm Hui Lindo Other [facility] Other 11-12-2022 09:45-0400 Body mass index (BMI) [Ratio] 35.29 kg/m2 Hui Lindo Other [facility] Other 11-12-2022 09:45-0400 Body temperature 97.9 [degF] Hui Lindo Other [facility] Other 11-12-2022 09:45-0400 Body weight 108.41 kg Hui Lindo Other [facility] Other 11-12-2022 09:45-0400 Diastolic blood pressure 100 mm[Hg] Hui Lindo Other [facility] Other 11-12-2022 09:45-0400 Systolic blood pressure 163 mm[Hg] Hui Lindo Other [facility] Other Encounters Encounter Date Encounter Type Care Provider Facility Start: 11-01-2024 End: 11-01-2024 [facility] Start: 10-18-2024 End: 10-18-2024 [facility] Start: 12-23-2023 End: 12-23-2023 ambulatory [facility] Work Phone: Start: 12-23-2023 End: 12-23-2023 Patient encounter procedure [facility] Work Phone: Start: 03-28-2023 End: 03-28-2023 ambulatory Hui Lindo Other [facility] Other Start: 03-28-2023 Telephone encounter Hui Lindo [facility] Start: 03-18-2023 End: 03-18-2023 ambulatory Hui Lindo Other [facility] Other Start: 03-18-2023 Telephone encounter Hui Lindo [facility] Start: 11-12-2022 End: 11-12-2022 ambulatory Hui Lindo Other [facility] Other Start: 11-12-2022 Office outpatient vi sit 15 minutes Hui Lindo [facility] Start: 10-01-2022 End: 10-01-2022 ambulatory Hui Lindo Other [facility] Other Start: 10-01-2022 Telephone encounter Hui Lindo [facility] Start: 09-23-2022 End: 09-23-2022 ambulatory Hui Lindo Other [facility] Other Start: 09-23-2022 Telephone encounter Hui Lindo [facility] Start: 09-04-2022 End: 09-04-2022 ambulatory Hui Lindo Other [facility] Other Start: 09-04-2022 Telephone encounter Hui Lindo [facility] Start: 06-07-2022 (Televisit) Televisit Hui Lindo [facility] Start: 06-07-2022 End: 06-07-2022 ambulatory Hui Lindo Other [facility] Other Start: 06-07-2022 Encounter for genera l adult medical examination without abnormal findings Hui Lindo [facility] Start: 05-25-2021 Encounter for genera l adult medical examination without abnormal findings DR HUI LINDO [facility] Start: 05-24-2021 End: 05-25-[address] HUI LINDO Facility:[facility] Start: 05-24-2021 End: 05-25-2021 Encounter for general adult medical examination without abnormal findings DR HUI LINDO Facility:[facility] Procedures Date Procedure Procedure Detail Performing Clinician Start: 05-24-[address] HUI LINDO Comment on above: Performed By: #### P [facility] #### [facility] [address] [place] [address] Dr. Ciro Mesa Plan of Treatment Date Care Activity Detail Author Start: 12-23-[address] [facility] Work Phone: Comprehensive metabo lic 2000 panel - Serum or Plasma [facility] Patient referral [facility] Work Phone: XR Hip - left 2 Views [facility] XR Lumbar spine 2 or 3 Views [facility] Immunizations Immunization Date Immunization Notes Care Provider Nakita huffman 01-05-2019 influenza virus vaccine, split virus (incl. purified surface antigen) Hui Lindo Other [facility] Other 01-05-2019 influenza virus vaccine, unspecified formulation [facility] Payers Date Payer Category Payer Unknown 2019 Unknown [id number] 1965 Unknown [id number] 1965 Unknown [id number] 1965 Unknown [id number] [id number] Social History Date Type Detail Facility Sex Assigned At [facility] Other Start: 1965 Sex Assigned At Male [facility] Hospital Discharge instructions 12-23-2023 Note Date & Type Note Facility 12-23-2023 Hospital Discharg e instructions Ambulatory OrdersReferral to Orthopedics Time Frame: 12/23/23, Location: None Selected [facility] Work Phone: Evaluation note 11-12-2022 Note [...] maxillary sinusitis (ICD-10 - J01.01) Finish antibiotic [facility] Other Evaluation note 06-07-2022 Note Date & [...] PSA (prostate specific antigen) (ICD-10 - Z12.5) [facility] Other Evaluation note Note Date & Type Note Facility Evaluation note No Information [employer] Other Evaluation note Note Date & Type Note Facility Evaluation note Diagnosis Onset Date Essential hypertension acute Left hip pain acute Lumbar pain with radiation down left leg acute Screening PSA (prostate specific antigen) acute [facility] Work Phone: History general Narrative - Reported Note Date & Type Note Facility History general Narrative - Reported Type Medical History Bronchitis Medical History LUMBAR PAIN WITH RADIATION DOWN LEFT LEG Medical History Back pain, thoracic Medical History Anxiety and depression Medical History Essential hypertension [facility] Other History general Narrative - Reported Note [...] no changes required, Problem Status : Active, [facility] Other Summary Purpose Family History No Family History Records Found Relationship Condition Age at Onset Recorded Date/T yue father Hypertension Unknown Family history of lung cancer Unknown Heart disease Unknown Malignant neoplasm Unknown History of stroke Unknown Advance Directives No Advanced Directives Records Found Advance Directive Response Recorded Date/ Time Advance Directives No December 18, 2023 4:05pm Hospital Course Note [facility] SURGERY Clinical Discharge Summary PERSON INFORMATION Name JEREMI HERNANDEZ Sr Age 54 Years 1965 Sex MALE Language Barbadian PCP Guicho MEDINA, Hui Potts Marital Status Med Service Ambulatory Surgery Acct# Arrival 03/13/2020 07:12:00 Visit Reason SURGERY - RIGHT SHOULDER SCOPE WITH ROTATOR CUFF REPAIR - HUITRON AND NEPHEW IMPLANT Acuity LOS 024 05:01 Address: [address] [place] [address] Comment: PROVIDER INFORMATION VITALS INFORMATION Vital Sign [...] section and content) DATE CREATED AUTHOR 03/24/2020 [facility] DATE CREATED AUTHOR AUTHOR'S ORGANIZ ATION 05/27/2021 [facility] DATE CREATED AUTHOR AUTHOR'S ORGANIZ ATION 11/06/2024 [facility] REASON FOR VISIT (unrecogniz ed section [...] BE BASED ON THE PRIMARY CLINICAL RECORDS. [employer] provides no warranty or guarantee of the accuracy or completeness of information in this document.
[2024-12-23 07:05] LABS: Hematocrit 47.2 % (42.0-54.0); Hemoglobin 16.8 g/dL (14.0-18.0); Immature Granulocytes Abs Auto 0.02 10^3/uL (0.00-0.03); Immature Granulocytes Pct Auto 0.3 % (0.0-0.5); Lymphocytes Absolute Auto 2.3 10^3/uL (1.2-3.8); Mean Corpuscular HGB Conc 35.6 g/dL (29.9-35.2); Mean Corpuscular Hemoglobin 33.0 pg (25.9-34.0); Mean Corpuscular Volume 92.7 fL (80.0-94.0); Platelet Count 255 10^3/uL (150-450); Red Blood Count 5.09 10^6/uL (4.70-6.10); White Blood Count 7.7 10^3/uL (4.0-11.0)
[2024-12-23 07:21] LABS: Alanine Aminotransferase 31 U/L (16-63); Albumin Globulin Ratio 0.9; Albumin Level 3.6 g/dL (3.4-5.0); Alkaline Phosphatase 70 U/L (46-116); Anion Gap 14.2; Aspartate Amino Transferase 19 U/L (15-37); Blood Urea Nitrogen 6.0 mg/dL (7.0-18.0); Calcium 8.6 mg/dL (8.5-10.1); Carbon Dioxide 26.6 mmol/L (21.0-32.0); Chloride 104 mmol/L (98-107); Cholesterol 220 mg/dL (<=200); Estimated GFR (African America >60 (>=60 mL/min/1.73m^2); Estimated GFR (Non-African Ame >60 (>=60 mL/min/1.73m^2); Globulin 4.2 g/dL; Glucose 115 mg/dL (74-106); HDL Cholesterol 46 mg/dL (40-60); Potassium 3.8 mmol/L (3.5-5.1); Sodium 141 mmol/L (136-145); Total Protein 7.8 g/dL (6.4-8.2); Triglycerides 171 mg/dL (<=150); VLDL CHOLESTEROL 34.2 mg/dL
== END 2024-12-23 06:34 | disposition home or self-care (01) ==
LOC: LAB 06:34
PROVIDERS: PCP Family Medicine; Visit Provider Family Medicine
DX: Z00.00 Encounter for general adult medical examination without abnormal findings (principal); I10 Essential (primary) hypertension; Z12.5 Encounter for screening for malignant neoplasm of prostate; R73.01 Impaired fasting glucose
CPT/HCPCS: 36415; 80053; 80061; 83036; 85025; G0103